=== PATIENT | female | born 1985 | race Caucasian/White ===

== ENCOUNTER 2016-05-02 00:15 | Inpatient (IN) | payer MEDICAID, OTHER ==
[~2016-05-02] VITALS: Ht 170.2 cm; Wt 119.5 kg
[~2016-05-02 00:15] MED LIST: FLUC100T39 PO; FOLI-49 PO; FURO40TA PO; HYDR-906 PO; LACT20SO12 PO; MULTI PO; OXYC5CAP17 PO; PANT40TA3 PO; SPIR100T31 PO
[2016-05-02] MEDS ORDERED: ONDANSETRON 4 MG INJ IV STA (00:35)
[2016-05-02] MEDS ORDERED: morphine 4 MG/ML VIAL IV STA ×2 (00:35→04:17)
[2016-05-02] MEDS ORDERED: SOD CHLORIDE 0.9% 1,000 ML IV ONE (01:00)
--- NOTE | 2016-05-02 01:34 | RADRPT ---
PROCEDURE: XR Chest. CLINICAL INDICATION: Possible sepsis. TECHNIQUE: Single frontal view of the chest was obtained COMPARISON: 04/14/2016. FINDINGS: Moderate right pleural effusion. Left lung is clear. The heart is not enlarged. There is no pleural effusion or pneumothorax. IMPRESSION: Moderate right pleural effusion is new over interval. RPTAT: [facility] Physician Amalia Date Time Electronically viewed and signed by Kyle Nguyen Physician on 05/02/2016 01:34 RS/
[2016-05-02 01:58] LABS: BASOPHILS % 0.1 % (0.0-2.0); EOSINOPHILS % 0.1 % (0.0-7.0); HEMATOCRIT 32.9 % (37.0-47.0); HEMOGLOBIN 11.2 g/dl (12.0-16.0); LYMPHOCYTES # 0.7 10^3/ul (0.8-2.9); LYMPHOCYTES % 2.8 % (15.0-51.0); MEAN CORPUSCULAR HEMOGLOBIN 29.4 pg (29.0-33.0); MEAN CORPUSCULAR VOLUME 86.4 fl (82.0-101.0); MEAN PLATELET VOLUME 8.1 fl (7.4-10.4); MONOCYTE # 0.6 10^3/ul (0.3-0.9); MONOCYTES % 2.3 % (0.0-11.0); NEUTROPHIL # 25.3 10^3/ul (1.6-7.5); NEUTROPHILS % 94.7 % (39.0-77.0); PLATELET COUNT 227 10^3/UL (140-440); RED CELL DISTRIBUTION WIDTH 23.6 % (11.5-14.5); UNCORRECTED WBC 26.8 10^3/ul (4.8-10.8)
[2016-05-02 02:07] LABS: INR 2.45; PROTIME 26.9 Sec (12.2-14.2); PT RATIO 2.1
[2016-05-02 02:08] LABS: ALBUMIN 2.7 g/dl (3.3-4.9); PARTIAL THROMBOPLASTIN TIME 46.7 Sec (25.0-35.0)
[2016-05-02 02:09] LABS: CHLORIDE 91 mmol/L (97-110); CONDITION 1; LH ANALYZER COMMENTS 1; SODIUM 134 mmol/L (135-144); SUSPECT 1
[2016-05-02 02:11] LABS: ALBUMIN/GLOBULIN RATIO 0.51; ALKALINE PHOSPHATASE 258 IU/L (42-121); ANION GAP 20 (8-16); ASPARTATE AMINO TRANSFERASE 172 IU/L (15-46); BILIRUBIN,INDIRECT 2.3 mg/dl (0-1.1); CARBON DIOXIDE 26 mmol/L (21-31); CREATININE 1.21 mg/dl (0.44-1.00); TOTAL PROTEIN 7.9 g/dl (6.1-8.1)
[2016-05-02 02:12] LABS: ALANINE AMINOTRANSFERASE 34 IU/L (13-69); BLOOD UREA NITROGEN 13 mg/dl (7-20); CALCIUM 8.4 mg/dl (8.4-10.2); GLUCOSE 127 mg/dl (70-220)
[2016-05-02] MEDS ORDERED: VANCOMYCIN 1 GM (PMX) 250 ML IVPB STA (02:17)
[2016-05-02] MEDS ORDERED: PIPER-TAZO 3.375 GM IV (PMX) 100 ML IVPB STA (02:17)
[2016-05-02 02:40] LABS: POTASSIUM 2.9 mmol/L (3.5-5.1)
[2016-05-02 02:41] LABS: TROPONIN-I < 0.010 ng/ml (0.00-0.12)
[2016-05-02 02:43] LABS: ADD UMIC YES; URINE BILIRUBIN (Dip) 3+ (NEGATIVE); URINE BLOOD (Dip) 1+ (NEGATIVE); URINE COLOR AMBER (YELLOW); URINE KETONES (Dip) TRACE (NEGATIVE); URINE LEUKOCYTE ESTERASE (Dip) NEGATIVE (NEGATIVE); URINE NITRITE (Dip) POSITIVE (NEGATIVE); URINE TOTAL PROTEIN (Dip) 2+ (NEGATIVE); URINE UROBILINOGEN (Dip) 2.0 E.U./dL (0.1-1.0)
--- NOTE | 2016-05-02 03:04 | ERA ---
ER Documentation Chief Complaint Date/Time DATE: 05/02/16 TIME: 03:02 Chief Complaint ab pain/distention w/worsening jaundice x 2 days HPI This is a 30-year-old female with history of liver failure and cirrhosis comes with abdominal distention worsening jaundice for the past 2 days. Patient complains of alternating fevers and chills. Pain is mild to moderate in intensity, diffuse in location with no exacerbating or alleviating factors. ROS All systems reviewed and are negative except as per history of present illness. Medications Home Meds Active Scripts Oxycodone Hcl* (IR) (Oxycodone Hcl*) 5 Mg Capsule, 5 MG PO Q4H Y for PAIN, #20 CAP Prov:KATIANAYVANESTHER DO 04/14/16 Spironolactone* (Spironolactone*) 100 Mg Tablet, 100 MG PO DAILY for 30 Days, TAB Prov:REGIDOBOBBI Wright 04/12/16 Furosemide* (Lasix*) 40 Mg Tablet, 40 MG PO DAILY for 30 Days, TAB Prov:REGIDORBOBBI 04/12/16 Hydrocodone/Acetaminophen (Bailey 5-325 Tablet) 1 Each Tablet, 1 EACH PO Q6H, # 30 TAB Prov:REGIDORBOBBI 04/12/16 Folic Acid* (Folic Acid*) 1 Mg Tablet, 1 MG PO DAILY for 30 Days, TAB Prov:REGIDOBOBBI Wright 04/12/16 Multivitamins* (Theragran*) 1 Tab Tab, 1 TAB PO DAILY for 30 Days, TAB Prov:REGIDORBOBBI 04/12/16 Lactulose* (Cephulac*) 20 Gm/30 Ml Soln, 20 GM PO Q6, #120 Prov:REGIDORBOBBI 04/12/16 Pantoprazole* (Protonix*) 40 Mg Tablet.dr, 40 MG PO BID, #60 TAB Prov:REGIDORBOBBI 04/12/16 Fluconazole* (Fluconazole*) 100 Mg Tablet, 100 MG PO DAILY for 7 Days, TAB Prov:REGIDORBOBBI 04/12/16 Allergies Allergies: Coded Allergies: No Known Allergy (Unverified , 04/14/16) PMhx/Soc History of Surgery: Yes (Gall bladder removed, Appendectomy, cyst removed) Anesthesia Reaction: No Hx Neurological Disorder: No Hx Respiratory Disorders: No Hx Cardiac Disorders: No Hx Psychiatric Problems: No Hx Miscellaneous Medical Probl: No Hx Alcohol Use: Yes (quit ) Hx Substance Use: Yes Hx Tobacco Use: No Smoking Status: Never smoker Physical Exam Vitals Vital Signs Date Time Temp Pulse Resp B/P Pulse Ox O2 Delivery O2 Flow Rate FiO2 05/02/16 01:25 98.2 102 17 132/72 97 Room Air 05/02/16 00:15 98.6 105 22 98/57 98 Physical Exam Const: [] Head: Atraumatic Eyes: Normal Conjunctiva ENT: Normal External Ears, Nose and Mouth. Neck: Full range of motion..~ No meningismus. Resp: Clear to auscultation bilaterally Cardio: Regular rate and rhythm, no murmurs Abd: Soft, non tender, non distended. Normal bowel sounds Skin: No petechiae or rashes Back: No midline or flank tenderness Ext: No cyanosis, or edema Neur: Awake and alert Psych: Normal Mood and Affect Result Diagram: 05/02/160 05/02/16 0130 Results 24 hrs Laboratory Tests Test 05/02/16 01:30 Activated Partial Thromboplast Time 46.7Sec Alanine Aminotransferase (ALT/SGPT) 34IU/L Albumin 2.7g/dl Albumin/Globulin Ratio 0.51 Alkaline Phosphatase 258IU/L Anion Gap 20 Aspartate Amino Transf (AST/SGOT) 172IU/L Basophils # Pending Basophils % Pending Blood Morphology Comment Blood Urea Nitrogen 13mg/dl Calcium Level 8.4mg/dl Carbon Dioxide Level 26mmol/L Chloride Level 91mmol/L Creatinine 1.21mg/dl Direct Bilirubin 13.70mg/dl Eosinophils # Pending Eosinophils % Pending Globulin 5.20g/dl Glucose Level 127mg/dl Hematocrit 32.9% Hemoglobin 11.2g/dl INR International Normalized Ratio 2.45 Indirect Bilirubin 2.3mg/dl Lactic Acid Level 2.8mmol/L Lymphocytes # Pending Lymphocytes % Pending Mean Corpuscular Hemoglobin 29.4pg Mean Corpuscular Hemoglobin Concent 34.0g/dl Mean Corpuscular Volume 86.4fl Mean Platelet Volume 8.1fl Monocytes # Pending Monocytes % Pending Neutrophils # Pending Neutrophils % Pending Nucleated Red Blood Cells # Pending Nucleated Red Blood Cells % Pending Platelet Count 61294^3/UL Potassium Level 2.9mmol/L Prothrombin Time 26.9Sec Prothrombin Time Ratio 2.1 Red Blood Count 3.8010^6/ul Red Cell Distribution Width 23.6% Sodium Level 134mmol/L Total Bilirubin 16.0mg/dl Total Protein 7.9g/dl Troponin I < 0.010ng/ml White Blood Count 26.810^3/ul Current Medications Medications (Trade) Dose Ordered Sig/Latoya Route PRN Reason Start Time Stop Time Status Last Admin Dose Admin Sodium Chloride (NS) 1,000 ml @ 1,000 mls/hr Q1H ONCE IV 05/02/16 01:00 05/02/16 01:59 DC 05/02/16 01:38 Morphine Sulfate (morphine) 4 mg ONCE STAT IV 05/02/16 00:35 05/02/16 00:36 DC 05/02/16 01:38 Ondansetron HCl 4 mg 4 mg ONCE STAT IV 05/02/16 00:35 05/02/16 00:36 DC 05/02/16 01:38 Vancomycin HCl 250 ml @ 125 mls/hr ONCE STAT IVPB 05/02/16 02:17 05/02/16 04:16 Piperacillin Sod/ Tazobactam Sod (Zosyn 3.375gm/ 100 ml (Pmx)) 100 ml @ 200 mls/hr ONCE STAT IVPB 05/02/16 02:17 05/02/16 02:46 DC 05/02/16 02:59 Procedures/MDM Patient's infectious symptoms have not stabilized and the patient is at risk of rapid decompensation. The patient will be admitted for careful hydration, antibiotic therapy, and infectious source control. Severe Sepsis Assessment: Infectious Source: Possibly spontaneous bacterial peritonitis End organ damage indicated by: [Lactate > 2.0 mmol/L Hypotension( SBP < 90 or >40 mmHG drop or MAP < 65) Severe Sepsis Managment: Blood Cultures X 2 before broad spectrum antibiotics initiated within 3 hours of recognition. 30 ml/kg NS bolus Completed Initial Lactate: [normal] Repeat Lactate pending Critical Care: Time: 45 minutes Treatments/Evaluations: Emergent fluid management, while maintaining close respiratory support. Immediate broad spectrum antibiotic therapy. Simultaneous assessment for possible sources in order to direct therapy. Consideration for invasive and chemical support to prevent respiratory or cardiac collapse. Septic Shock Assessment (1 hour post 30 ml/kg fluid bolus): Hypotension (SBP < 90 or 40 mmHg drop, MAP < 65): [No] Lactic acid > 4.0 [No] Perfusion Reassessment for Septic Shock: Temp 98 point, Pulse 98, RR 18, BP 117/80 Heart Exam: [Tachycardic] Lung Exam: [No Crackles] Capillary Refill: [Delayed] Peripheral Pulses: [Radially present] Skin: [Mottled, pale] Accepting Care Team: Current data and ongoing care discussed. Time: 2:30 AM Primary Provider: Jeff Consulting: [XOXOXO] Outstanding Data: none Chest X-ray 1V Interpreted by me: Soft Tissue: No acute abnormalities Bones: No acute abnormalities Mediastinum/Cardiac Silhouette/Lungs: Left pleural effusion Departure Diagnosis: Primary Impression: Sepsis Qualified Code: A41.9 - Sepsis, due to unspecified organism Additional Impressions: Hypokalemia Jaundice Condition: Critical RAJESH LAWRENCE May 02, 2016 03:04
[2016-05-02 03:16] LABS: ICTOTEST POSITIVE (NEGATIVE)
[2016-05-02 03:17] LABS: BACTERIA,URINE MODERATE; SQUAMOUS EPITHELIAL CELL,UR MANY
[2016-05-02] MEDS ORDERED: POTASSIUM CHLORIDE 250 ML IVPB ONE (06:00)
[2016-05-02] MEDS ORDERED: NACL 0.9% 3 ML SYG IV SCH (07:30)
[2016-05-02] MEDS ORDERED: ONDANSETRON 4 MG INJ IV PRN (07:30)
[2016-05-02] MEDS: CEFTRIAXONE 1 GM/50 ML (PMX) 50 ML IVPB SCH (08:05)
[2016-05-02] MEDS: SOD CHLORIDE 0.45% 1,000 ML IV SCH (08:06)
--- NOTE | 2016-05-02 08:10 | RADRPT ---
PROCEDURE: US Abdomen limited CLINICAL INDICATION: Distension TECHNIQUE: Multiple real-time longitudinal and transverse images were acquired of the patient's ab domen utilizing a curved array transducer. COMPARISON: 04/14/2016 FINDINGS: A small amount of simple appearing ascites is seen in the right upper quadrant and left upper quadra nt. The liver demonstrates coarsened hepatic echotexture and suggestion of nodular surface contour. IMPRESSION: 1. Small ascites as above. 2. Suggestion of chronic hepatic parenchymal disease. RPTAT: JJ .Alfonzo Armstrong MD, MD Date Time Electronically viewed and signed by .Alfonzo Armstrong MD, on 05/02/2016 08:09 .A/
[2016-05-02] MEDS: MULTIVITAMINS THERAPEUTIC TAB PO SCH (08:55)
[2016-05-02] MEDS: FLUCONAZOLE 100 MG TAB PO SCH (08:55)
[2016-05-02] MEDS: FOLIC ACID 1 MG TAB PO SCH (08:55)
[2016-05-02] MEDS: PANTOPRAZOLE (EC) 40 MG TAB PO SCH ×2 (08:55→18:10)
[2016-05-02] MEDS: SPIRONOLACTONE 50 MG TAB PO SCH (08:55)
[2016-05-02] MEDS: FUROSEMIDE 40 MG TAB PO SCH (08:59)
--- NOTE | 2016-05-02 10:07 | HP ---
DATE OF ADMISSION: 05/02/2016 TIME: 7 a.m. CHIEF COMPLAINT: Abdominal pain. HISTORY OF PRESENT ILLNESS: The patient is a 30-year-old female with a history of alcohol abuse wit h cirrhosis. The patient is on liver transplant list. The patient states that her last drink was 2 weeks ago, she took a shot. Since then she has been having abdominal pain. She states that she aaron s never had a paracentesis before, and she has never been diagnosed with actual ascites, but the abd omen does get distended. The patient states that her pain has been progressively getting worse over the past 2 weeks and has become difficult to bear. She has no other complaints at this time. Of n ote, she does state that her abdomen has been more distended over the past several weeks as well. PAST MEDICAL HISTORY: Alcohol-related cirrhosis. The patient is on the liver transplant list. Her last drink was 2 weeks ago when she took a shot of alcohol. PAST SURGICAL HISTORY: Appendectomy, cholecystectomy. HOME MEDICATIONS: 1. Oxycodone 2. Aldactone. 3. Furosemide. 4. Hydrocodone. 5. Folic acid. 6. Multivitamin. 7. Lactulose. 8. Protonix. 9. Fluconazole. ALLERGIES: NO KNOWN DRUG ALLERGIES. FAMILY HISTORY: Denies. SOCIAL HISTORY: Denies any tobacco or drug abuse. She has a history of alcohol abuse and is trying to stop drinking. Once again, her last drink was 2 weeks ago. REVIEW OF SYSTEMS: A 12-point review of systems is negative except for that discussed in HPI. PHYSICAL EXAMINATION: VITAL SIGNS: Temperature is 98.2, pulse is 90, respiratory rate is 20, blood pressure is 106/63, sa turation 93% on room air. GENERAL: No acute distress, alert, and oriented. HEENT: Normocephalic, atraumatic. LUNGS: Clear to auscultation. CARDIOVASCULAR: Regular rate and rhythm. ABDOMEN: Distended, tender to palpation, soft. EXTREMITIES: No clubbing, cyanosis, or edema. LABORATORIES: White count 26.8, hemoglobin is 11.2, platelets are 20 to 27. Chemistry: Sodium is 134, potassium is 2.9, chloride is 91, anion gap is 20, creatinine is 1.21. Lactic acid is 2.8. To jen bilirubin is 16.0. AST is 172, alkaline phosphatase is 68, ALT is 34. INR is 2.45. UA shows 0 to 2 WBCs, positive nitrites, trace ketones. DIAGNOSTICS: Chest x-ray shows moderate right pleural effusion, new over interval. ASSESSMENT AND PLAN: 1. Abdominal pain, evaluate for spontaneous bacterial peritonitis. Of note, the patient has yet to have any paracentesis because she has never actually been noted to have any significant ascites. S he has had abdominal distention in the past she states, but was told that she had no actual fluid in her abdomen. At this time will first order abdominal ultrasound to see if there is any ascites. I f then, primary team can order a paracentesis and for both therapeutic and diagnostic purposes and e valuate for SBP. At this point will empirically treat with Rocephin for possible SBP. Will give mo rphine p.r.n. for pain. 2. Leukocytosis, possibly secondary to spontaneous bacterial peritonitis. UA shows no signs of inf ection. Chest x-ray shows no pneumonia. 3. Left side pleural effusion. The patient has no shortness of breath, but she does have moderate right pleural effusion. This could be possibly secondary to a hepatic hydrothorax, and if abdominal ultrasound did show ascites, this would further strengthen this etiology for this effusion. Of not e, even if the ultrasound is negative for any abdominal ascites, this right pleural effusion and may very well likely still be secondary to underlying cirrhosis and could likely still be a hepatic hyd rothorax 4. Alcohol abuse with a history of cirrhosis. The patient does have a rising total bilirubin. Her INR is also elevated. Creatinine is also slightly elevated. A CHADS score is likely to be somewha t high, but of note, she already is on a liver transplant list, and she understands that she needs t o not drink for 6 months to be even eligible for a transplant. We will continue her home lactulose as well as furosemide, Aldactone, and Protonix. 5. Prophylaxis. SCDs. Dictated By: TITUS CUMMINS/BE Conf#: [id number] DID#: [id number]
[2016-05-02 11:00] VITALS: BP 116/56; PULSE 90; RESP 18; Ht 170.2 cm; Wt 119.5 kg
[2016-05-02 11:02] VITALS: TEMP 98.1
[2016-05-02] MEDS: oxyCODONE 5 MG TAB PO PRN ×2 (12:09→21:22)
[2016-05-02] MEDS: LACTULOSE 30ML CUP PO SCH ×2 (12:14→18:10)
--- NOTE | 2016-05-02 16:24 | CONS ---
Date/Time of Note Date/Time of Note DATE: 05/02/16 TIME: 16:17 Consult Date/Type/Reason Admit Date/Time May 02, 2016 at 02:18 Initial Consult Date Type of Consultation: Internal Medicine Subjective Comfortable. Mild nausea. Objective Vital Signs Date Time Temp Pulse Resp B/P Pulse Ox O2 Delivery O2 Flow Rate FiO2 05/02/16 11:02 98.1 88 16 109/61 Room Air 05/02/16 11:00 97 PHYSICAL EXAMINATION: VITAL SIGNS: .Chronically ill appearing lady. Significant jaundice. GENERAL: No acute distress, alert, and oriented. HEENT: Normocephalic, atraumatic. LUNGS: Clear to auscultation. CARDIOVASCULAR: Regular rate and rhythm. ABDOMEN: Distended, tender to palpation, soft. EXTREMITIES: No clubbing, cyanosis, or edema. Results/Medications Result Diagram: 05/02/16 0130 05/02/16 0130 Results 24 hrs Laboratory Tests Test 05/02/16 01:30 05/02/16 02:26 Activated Partial Thromboplast Time 46.7 H Alanine Aminotransferase (ALT/SGPT) 34 Albumin 2.7 L Albumin/Globulin Ratio 0.51 Alkaline Phosphatase 258 H Anion Gap 20 H Aspartate Amino Transf (AST/SGOT) 172 H Basophils # 0.0 Basophils % 0.1 Blood Morphology Comment Blood Urea Nitrogen 13 Calcium Level 8.4 Carbon Dioxide Level 26 Chloride Level 91 L Creatinine 1.21 H Direct Bilirubin 13.70 H Eosinophils # 0.0 Eosinophils % 0.1 Globulin 5.20 H Glucose Level 127 Hematocrit 32.9 L Hemoglobin 11.2 L INR International Normalized Ratio 2.45 Indirect Bilirubin 2.3 H Lactic Acid Level 2.8 H Lymphocytes # 0.7 L Lymphocytes % 2.8 L Mean Corpuscular Hemoglobin 29.4 Mean Corpuscular Hemoglobin Concent 34.0 Mean Corpuscular Volume 86.4 Mean Platelet Volume 8.1 Monocytes # 0.6 Monocytes % 2.3 Neutrophils # 25.3 H Neutrophils % 94.7 H Nucleated Red Blood Cells # 0.0 Nucleated Red Blood Cells % 0.0 Platelet Count 227 Potassium Level 2.9 *L Prothrombin Time 26.9 H Prothrombin Time Ratio 2.1 Red Blood Count 3.80 L Red Cell Distribution Width 23.6 H Sodium Level 134 L Total Bilirubin 16.0 *H Total Protein 7.9 Troponin I < 0.010 White Blood Count 26.8 #H Urine Bacteria MODERATE Urine Bilirubin 3+ H Urine Clarity CLEAR Urine Color NEVA Urine Glucose 0.1% H Urine Hemoglobin 1+ H Urine Ictotest POSITIVE Urine Ketones TRACE H Urine Leukocyte Esterase NEGATIVE Urine Microscopic RBC 10-25 Urine Microscopic WBC 0-2 Urine Nitrite POSITIVE H Urine Specific [place] 1.010 Urine Squamous Epithelial Cells MANY Urine Total Protein 2+ H Urine Urobilinogen 2.0 E.U./dL H Urine pH 6.5 Medications Current Medications Sodium Chloride (1/2 NS) 1,000 ml @ 30 mls/hr Q24H IV Last administered on 05/02 08:06; Admin Dose 30 MLS/HR; Start 05/02/16 at 08:00 Ondansetron HCl 4 mg 4 mg Q6H PRN IV NAUSEA AND/OR VOMITING Last administered on 05/02/16 12:14; Admin Dose 4 MG; Start 05/02/16 at 07:30 Ceftriaxone Sodium (Rocephin) 50 ml @ 100 mls/hr Q24H IVPB Last administered on 05/02/16 08:05; Admin Dose 100 MLS/HR; Start 05/02/16 at 07:30 Fluconazole (Diflucan) 100 mg DAILY PO Last administered on 05/02/16 08:55; Admin Dose 100 MG; Start 05/02/16 at 09:00 Folic Acid (Folic Acid) 1 mg DAILY PO Last administered on 05/02/16 08:55; Admin Dose 1 MG; Start 05/02/16 at 09:00 Furosemide (Lasix) 40 mg DAILY PO ; Start 05/02/16 at 09:00 Lactulose (Enulose) 20 gm Q6 PO Last administered on 05/02/16 12:14; Admin Dose 20 GM; Start 05/02/16 at 12:00 Multivitamins Therapeutic (Theragran) 1 tab DAILY PO Last administered on 08:55; Admin Dose 1 TAB; Start 05/02/16 at 09:00 Oxycodone HCl (Roxicodone) 5 mg Q4H PRN PO PAIN Last administered on 05/02/16 12:09; Admin Dose 5 MG; Start 05/02/16 at 08:00 Pantoprazole (Protonix Tab) 40 mg BID@06,18 PO Last administered on 05/02/16 08 :55; Admin Dose 40 MG; Start 05/02/16 at 08:00 Spironolactone (Aldactone) 100 mg DAILY PO Last administered on 05/02/16 08:55 ; Admin Dose 100 MG; Start 05/02/16 at 09:00 Assessment/Plan Chief Complaint/Hosp Course ASSESSMENT AND PLAN: 1. Abdominal pain, evaluate for spontaneous bacterial peritonitis. Ultrasound abdo shows only a little ascites. Not enough for paracentesis. Continue empiric rocephin for SBP for now. Dr Isaac cunha pending. 2. Leukocytosis, possibly secondary to spontaneous bacterial peritonitis. UA shows no signs of infection. Chest x-ray shows no pneumonia. 3. Left side pleural effusion. The patient has no shortness of breath, but she does have moderate right pleural effusion. repeat cxr in am, if still has significant effusion, will need thoracentesis although this is likely hepatic hydrothorax. 4. SCDs. Problems: AHSAN FLORES MD, [facility] May 02, 2016 16:24
[2016-05-02 19:49] VITALS: BP 101/50; RESP 16
--- NOTE | 2016-05-02 20:53 | CONS ---
Date/Time of Note Date/Time of Note DATE: 05/02/16 TIME: 20:42 Assessment/Plan Assessment/Plan Additional Assessment/Plan Assessment: Severe alcoholic hepatitis Cirrhosis of the liver/alcoholic Ascites Coagulopathy Likely portal hypertension Pleural effusion Likely related to ascites Leukocytosis Likely related to alcoholic hepatitis History of alcohol abuse/active Plan: Based on discriminant function values will initiate prednisone 40 mg daily 28 days Continue diureses Eventually endoscopy is advisable to rule out varices Consultation Date/Type/Reason Admit Date/Time May 02, 2016 at 02:18 Type of Consultation: Gastroenterology/hepatology Hx of Present Illness 30-year-old female with history of heavy ethanol abuse, hospitalized with increasing abdominal pain and also increasing abdominal girth. The patient states that she has been evaluated previously for liver transplant in [facility], she recently relocated to [place] and is supposed to have an appointment at [facility]. She however has not been seen by [facility] liver transplant program. The patient has been hospitalized with anasarca, severe jaundice, prolonged PT. She claims abstinence for 4 months until 2 weeks prior when she had in her description "one shot of vodka" the reliability of this information is highly questionable. The patient currently is alert and oriented 3, she is hungry. Her clinical picture is highly suggestive alcoholic hepatitis and she has had discriminant function calculated at 81.8 which puts her at a very high risk with increased mortality in the short-term and a good candidate for steroid therapy. Her calculated meld score is 30. Given the fact the patient is been drinking as recently as 2 weeks and she has not attended any programs she is unlikely to be a candidate for transplantation at this time. Skin: no complaints Past Medical History Alcoholic liver disease Alcoholism Medical History: other Past Surgical History Cholecystectomy Appendectomy Social History Alcohol Use: other (Unclear but likely active) Smoking Status: Never smoker Drug Use: none Exam/Review of Systems Vital Signs Vitals Vital Signs Date Time Temp Pulse Resp B/P Pulse Ox O2 Delivery O2 Flow Rate FiO2 05/02/16 19:49 98.6 88 16 101/50 93 05/02/16 11:02 Room Air Exam Constitutional: alert, obese, oriented, other (Significant ascites), well developed, No distress Head: atraumatic, normocephalic Eyes: icteric, other Neck: non-tender, supple Respiratory: crackles/rales (Both bases), diminished breath sounds (Both bases) Cardiovascular: nl pulses, regular rate and rhythm Gastrointestinal: ascites, bowel sounds, distended, soft, tender (Mildly diffuse), No hepatomegaly, No mass, No rebound or guarding, No splenomegaly Genitourinary - Female: nl external genitalia Extremities: edema (3+ pitting edema lower extremities) Neurological: BRIM STIFFENER II-XII intact, nl mental status, nl speech, nl strength Results Result Diagram: 05/02/16 0130 05/02/16 0130 Results 24 hrs Laboratory Tests Test 05/02/16 01:30 05/02/16 02:26 Activated Partial Thromboplast Time 46.7 H Alanine Aminotransferase (ALT/SGPT) 34 Albumin 2.7 L Albumin/Globulin Ratio 0.51 Alkaline Phosphatase 258 H Anion Gap 20 H Aspartate Amino Transf (AST/SGOT) 172 H Basophils # 0.0 Basophils % 0.1 Blood Morphology Comment Blood Urea Nitrogen 13 Calcium Level 8.4 Carbon Dioxide Level 26 Chloride Level 91 L Creatinine 1.21 H Direct Bilirubin 13.70 H Eosinophils # 0.0 Eosinophils % 0.1 Globulin 5.20 H Glucose Level 127 Hematocrit 32.9 L Hemoglobin 11.2 L INR International Normalized Ratio 2.45 Indirect Bilirubin 2.3 H Lactic Acid Level 2.8 H Lymphocytes # 0.7 L Lymphocytes % 2.8 L Mean Corpuscular Hemoglobin 29.4 Mean Corpuscular Hemoglobin Concent 34.0 Mean Corpuscular Volume 86.4 Mean Platelet Volume 8.1 Monocytes # 0.6 Monocytes % 2.3 Neutrophils # 25.3 H Neutrophils % 94.7 H Nucleated Red Blood Cells # 0.0 Nucleated Red Blood Cells % 0.0 Platelet Count 227 Potassium Level 2.9 *L Prothrombin Time 26.9 H Prothrombin Time Ratio 2.1 Red Blood Count 3.80 L Red Cell Distribution Width 23.6 H Sodium Level 134 L Total Bilirubin 16.0 *H Total Protein 7.9 Troponin I < 0.010 White Blood Count 26.8 #H Urine Bacteria MODERATE Urine Bilirubin 3+ H Urine Clarity CLEAR Urine Color NEVA Urine Glucose 0.1% H Urine Hemoglobin 1+ H Urine Ictotest POSITIVE Urine Ketones TRACE H Urine Leukocyte Esterase NEGATIVE Urine Microscopic RBC 10-25 Urine Microscopic WBC 0-2 Urine Nitrite POSITIVE H Urine Specific [place] 1.010 Urine Squamous Epithelial Cells MANY Urine Total Protein 2+ H Urine Urobilinogen 2.0 E.U./dL H Urine pH 6.5 Medications Medications Current Medications Sodium Chloride (1/2 NS) 1,000 ml @ 30 mls/hr Q24H IV Last administered on 05/02 08:06; Admin Dose 30 MLS/HR; Start 05/02/16 at 08:00 Ondansetron HCl 4 mg 4 mg Q6H PRN IV NAUSEA AND/OR VOMITING Last administered on 05/02/16 12:14; Admin Dose 4 MG; Start 05/02/16 at 07:30 Ceftriaxone Sodium (Rocephin) 50 ml @ 100 mls/hr Q24H IVPB Last administered on 05/02/16 08:05; Admin Dose 100 MLS/HR; Start 05/02/16 at 07:30 Fluconazole (Diflucan) 100 mg DAILY PO Last administered on 05/02/16 08:55; Admin Dose 100 MG; Start 05/02/16 at 09:00 Folic Acid (Folic Acid) 1 mg DAILY PO Last administered on 05/02/16 08:55; Admin Dose 1 MG; Start 05/02/16 at 09:00 Furosemide (Lasix) 40 mg DAILY PO ; Start 05/02/16 at 09:00 Lactulose (Enulose) 20 gm Q6 PO Last administered on 05/02/16 18:10; Admin Dose 20 GM; Start 05/02/16 at 12:00 Multivitamins Therapeutic (Theragran) 1 tab DAILY PO Last administered on 08:55; Admin Dose 1 TAB; Start 05/02/16 at 09:00 Oxycodone HCl (Roxicodone) 5 mg Q4H PRN PO PAIN Last administered on 05/02/16 12:09; Admin Dose 5 MG; Start 05/02/16 at 08:00 Pantoprazole (Protonix Tab) 40 mg BID@06,18 PO Last administered on 05/02/16 18 :10; Admin Dose 40 MG; Start 05/02/16 at 08:00 Spironolactone (Aldactone) 100 mg DAILY PO Last administered on 05/02/16 08:55 ; Admin Dose 100 MG; Start 05/02/16 at 09:00 ZOFIA AGEE MD May 02, 2016 20:52
[2016-05-02] MEDS ORDERED: predniSONE 20 MG TAB PO ONE (21:00)
[2016-05-03] MEDS: LACTULOSE 30ML CUP PO SCH ×5 (00:22→23:23)
[2016-05-03 05:12] LABS: HEMATOCRIT 27.3 % (37.0-47.0); HEMOGLOBIN 9.4 g/dl (12.0-16.0); MEAN CORPUSCULAR HEMOGLOBIN 29.9 pg (29.0-33.0); MEAN CORPUSCULAR HGB CONC 34.2 g/dl (32.0-37.0); MEAN CORPUSCULAR VOLUME 87.3 fl (82.0-101.0); MEAN PLATELET VOLUME 7.7 fl (7.4-10.4); PLATELET COUNT 170 10^3/UL (140-440); RED BLOOD COUNT 3.13 10^6/ul (4.20-5.40); RED CELL DISTRIBUTION WIDTH 24.9 % (11.5-14.5); UNCORRECTED WBC 26.5 10^3/ul (4.8-10.8); WHITE BLOOD COUNT 26.5 10^3/ul (4.8-10.8)
[2016-05-03 05:26] LABS: ALBUMIN 2.3 g/dl (3.3-4.9)
[2016-05-03 05:27] LABS: POTASSIUM 3.2 mmol/L (3.5-5.1)
[2016-05-03 05:28] LABS: CREATININE 1.28 mg/dl (0.44-1.00)
[2016-05-03 05:29] LABS: ALBUMIN/GLOBULIN RATIO 0.46; BILIRUBIN,DIRECT 12.3 mg/dl (0.00-0.20); BILIRUBIN,TOTAL 14.3 mg/dl (0.2-1.3); CALCIUM 8.1 mg/dl (8.4-10.2); MAGNESIUM 2.4 mg/dl (1.7-2.5); PHOSPHORUS 4.2 mg/dl (2.5-4.9); TOTAL PROTEIN 7.2 g/dl (6.1-8.1)
[2016-05-03 05:33] LABS: CONDITION 1; LH ANALYZER COMMENTS 1; SUSPECT 1
[2016-05-03] MEDS: PANTOPRAZOLE (EC) 40 MG TAB PO SCH ×2 (05:50→17:24)
[2016-05-03 07:28] LABS: WHITE BLOOD COUNT 26.8 10^3/ul (4.8-10.8)
[2016-05-03] MEDS: SOD CHLORIDE 0.45% 1,000 ML IV SCH ×2 (08:00→18:12)
[2016-05-03] MEDS: oxyCODONE 5 MG TAB PO PRN ×2 (08:21→17:23)
[2016-05-03] MEDS: CEFTRIAXONE 1 GM/50 ML (PMX) 50 ML IVPB SCH (08:21)
[2016-05-03] MEDS: FOLIC ACID 1 MG TAB PO SCH (08:22)
[2016-05-03] MEDS: MULTIVITAMINS THERAPEUTIC TAB PO SCH (08:22)
[2016-05-03] MEDS: FLUCONAZOLE 100 MG TAB PO SCH (08:22)
[2016-05-03] MEDS: SPIRONOLACTONE 50 MG TAB PO SCH (08:26)
[2016-05-03] MEDS: FUROSEMIDE 40 MG TAB PO SCH (08:26)
[2016-05-03 08:27] VITALS: BP 121/60; PULSE 92; RESP 16
[2016-05-03 10:51] LABS: NEUTROPHIL # 22.3 10^3/ul (1.6-7.5)
[2016-05-03 10:52] LABS: LYMPHOCYTES # 1.1 10^3/ul (0.8-2.9); MONOCYTE # 1.1 10^3/ul (0.3-0.9); MYELOCYTES # 0.3
--- NOTE | 2016-05-03 11:10 | RADRPT ---
PROCEDURE: XR Chest. CLINICAL INDICATION: Shortness of breath. TECHNIQUE: Single frontal view. COMPARISON: 05/02/2016. FINDINGS: There is a moderate right pleural effusion, unchanged. There is associated atelectasis or pneumonia throughout the right mid and lower lung zones, also unchanged. There is mild left basilar atelecta sis. The left lung is otherwise clear. There is no left pleural effusion. The heart size is normal. There is no pneumothorax. IMPRESSION: 1. No change from 05/02/2016. RPTAT: QQ .Randy Joel MD, MD Date Time Electronically viewed and signed by .Randy Joel MD, MD on 05/03/2016 11:10 .R/
[2016-05-03] MEDS ORDERED: POTASSIUM CHLORIDE (SR) 20 MEQ TAB PO STA ×2 (14:23→15:46)
--- NOTE | 2016-05-03 15:58 | PN ---
Date/Time of Note Date/Time of Note DATE: 05/03/16 TIME: 15:56 Assessment/Plan VTE Prophylaxis VTE Prophylaxis Intervention: SCD's Assessment/Plan Assessment/Plan 1. Abdominal pain, evaluate for spontaneous bacterial peritonitis. Of note, the patient has yet to have any paracentesis because she has never actually been noted to have any significant ascites. She has had abdominal distention in the past she states, but was told that she had no actual fluid in her abdomen. At this time will first order abdominal ultrasound to see if there is any ascites. If then, primary team can order a paracentesis and for both therapeutic and diagnostic purposes and evaluate for SBP. At this point will empirically treat with Rocephin for possible SBP. Will give morphine p.r.n. for pain. 2. Leukocytosis, possibly secondary to spontaneous bacterial peritonitis. UA shows no signs of infection. Chest x-ray shows no pneumonia. 3. Left side pleural effusion. The patient has no shortness of breath, but she does have moderate right pleural effusion. This could be possibly secondary to a hepatic hydrothorax, and if abdominal ultrasound did show ascites , this would further strengthen this etiology for this effusion. Of note, even if the ultrasound is negative for any abdominal ascites, this right pleural effusion and may very well likely still be secondary to underlying cirrhosis and could likely still be a hepatic hydrothorax 4. Alcohol abuse with a history of cirrhosis. The patient does have a rising total bilirubin. Her INR is also elevated. Creatinine is also slightly elevated. A CHADS score is likely to be somewhat high, but of note, she already is on a liver transplant list, and she understands that she needs to not drink for 6 months to be even eligible for a transplant. We will continue her home lactulose as well as furosemide, Aldactone, and Protonix. 5. Prophylaxis. SCDs. Subjective 24 Hr Interval Summary Free Text/Dictation afebrile still has abdominal pain no nausea or vomiting Exam/Review of Systems Vital Signs Vitals Vital Signs Date Time Temp Pulse Resp B/P Pulse Ox O2 Delivery O2 Flow Rate FiO2 05/03/16 08:27 99.0 92 16 121/60 92 Room Air Intake and Output 05/02/16 05/02/16 05/03/16 15:00 23:00 07:00 Intake Total 150 ml 710 ml Output Total 150 ml 700 ml Balance 0 ml 10 ml Exam Constitutional: alert, oriented, well developed Psych: nl mood/affect, no complaints Head: atraumatic, normocephalic Eyes: EOMI, PERRL, nl conjunctiva, nl lids, nl sclera ENMT: mucosa pink and moist, nl external ears & nose, nl lips & teeth, nl nasal mucosa & septum Neck: non-tender, supple Respiratory: clear to auscultation, normal air movement Cardiovascular: regular rate and rhythm Gastrointestinal: distended, hepatomegaly, other (diffuse tenderness with rebound), soft Extremities: normal pulses, No calf tenderness, No clubbing, No cyanosis, No edema, No palpable cord, No pitting pedal edema, No tenderness Neurological: SENIOR FOREMAN II-XII intact, nl mental status, nl speech, nl strength Skin: nl turgor, rash or lesions Results Result Diagram: 05/03/165 05/03/165 Results 24 hrs Laboratory Tests Test 05/03/16 04:35 Alanine Aminotransferase (ALT/SGPT) 32 Albumin 2.3 L Albumin/Globulin Ratio 0.46 Alkaline Phosphatase 217 H Anion Gap 16 Aspartate Amino Transf (AST/SGOT) 128 H Band Neutrophils % 4.0 Basophils # Basophils % Blood Morphology Comment Blood Urea Nitrogen 13 Calcium Level 8.1 L Carbon Dioxide Level 25 Chloride Level 96 L Creatinine 1.28 H Differential Comment MANUAL DIFF Direct Bilirubin 12.30 H Eosinophils # Eosinophils % Globulin 4.90 H Glucose Level 154 Hematocrit 27.3 L Hemoglobin 9.4 L Hemoglobin A1c 5.0 Indirect Bilirubin 2.0 H Lymphocytes # 1.1 Lymphocytes % 4.0 L Magnesium Level 2.4 Mean Corpuscular Hemoglobin 29.9 Mean Corpuscular Hemoglobin Concent 34.2 Mean Corpuscular Volume 87.3 Mean Platelet Volume 7.7 Metamyelocytes # 0.8 Metamyelocytes % 3.0 H Monocytes # 1.1 H Monocytes % 4.0 Myelocytes # 0.3 Myelocytes % 1.0 H Neutrophils # 22.3 H Neutrophils % 84.0 H Nucleated Red Blood Cells # Nucleated Red Blood Cells % 1.0 H Phosphorus Level 4.2 Platelet Count 170 # Potassium Level 3.2 L Red Blood Count 3.13 L Red Cell Distribution Width 24.9 H Sodium Level 134 L Total Bilirubin 14.3 H Total Protein 7.2 White Blood Count 26.5 H Medications Medications Current Medications Sodium Chloride (1/2 NS) 1,000 ml @ 30 mls/hr Q24H IV Last administered on 05/02 08:06; Admin Dose 30 MLS/HR; Start 05/02/16 at 08:00 Ondansetron HCl 4 mg 4 mg Q6H PRN IV NAUSEA AND/OR VOMITING Last administered on 05/02/16 12:14; Admin Dose 4 MG; Start 05/02/16 at 07:30 Ceftriaxone Sodium (Rocephin) 50 ml @ 100 mls/hr Q24H IVPB Last administered on 05/03/16 08:21; Admin Dose 100 MLS/HR; Start 05/02/16 at 07:30 Fluconazole (Diflucan) 100 mg DAILY PO Last administered on 05/03/16 08:22; Admin Dose 100 MG; Start 05/02/16 at 09:00 Folic Acid (Folic Acid) 1 mg DAILY PO Last administered on 05/03/16 08:22; Admin Dose 1 MG; Start 05/02/16 at 09:00 Furosemide (Lasix) 40 mg DAILY PO Last administered on 05/03/16 08:26; Admin Dose 40 MG; Start 05/02/16 at 09:00 Lactulose (Enulose) 20 gm Q6 PO Last administered on 05/03/16 12:34; Admin Dose 20 GM; Start 05/02/16 at 12:00 Multivitamins Therapeutic (Theragran) 1 tab DAILY PO Last administered on 08:22; Admin Dose 1 TAB; Start 05/02/16 at 09:00 Oxycodone HCl (Roxicodone) 5 mg Q4H PRN PO PAIN Last administered on 05/03/16 08:21; Admin Dose 5 MG; Start 05/02/16 at 08:00 Pantoprazole (Protonix Tab) 40 mg BID@06,18 PO Last administered on 05/03/16 05:50; Admin Dose 40 MG; Start 05/02/16 at 08:00 Spironolactone (Aldactone) 100 mg DAILY PO Last administered on 05/03/16 08:26 ; Admin Dose 100 MG; Start 05/02/16 at 09:00 MIRZA AKHTAR MD May 03, 2016 15:58
--- NOTE | 2016-05-03 16:38 | CONS ---
Date/Time of Note Date/Time of Note DATE: 05/03/16 TIME: 16:36 Assessment/Plan Assessment/Plan Additional Assessment/Plan Severe alcoholic hepatitis Cirrhosis of the liver/alcoholic Ascites Coagulopathy Likely portal hypertension Pleural effusion Likely related to ascites Leukocytosis Likely related to alcoholic hepatitis History of alcohol abuse/active Plan: Recommend prednisone 40 mg daily 28 days after resolution of infection Continue diureses Eventually endoscopy is advisable to rule out varices Further recommendations depend on clinical course Patient seen in collaboration with Dr. Gray Consultation Date/Type/Reason Admit Date/Time May 02, 2016 at 02:18 Initial Consult Date Type of Consultation: Gastroenterology/hepatology 24 HR Interval Summary Free Text/Dictation Patient reports less abdominal pain but still present Tolerating diet Small ascites noted on ultrasound, unable to get paracentesis Leukocytosis, prednisone stopped Exam/Review of Systems Vital Signs Vitals Vital Signs Date Time Temp Pulse Resp B/P Pulse Ox O2 Delivery O2 Flow Rate FiO2 05/03/16 08:27 99.0 92 16 121/60 92 Room Air Intake and Output 05/02/16 05/02/16 05/03/16 15:00 23:00 07:00 Intake Total 150 ml 710 ml Output Total 150 ml 700 ml Balance 0 ml 10 ml Exam Constitutional: alert, obese, oriented, other (Significant ascites), well developed, No distress Head: atraumatic, normocephalic Eyes: icteric, other Neck: non-tender, supple Respiratory: crackles/rales (Both bases), diminished breath sounds (Both bases) Cardiovascular: nl pulses, regular rate and rhythm Gastrointestinal: ascites, bowel sounds, distended, soft, tender (Mildly diffuse), No hepatomegaly, No mass, No rebound or guarding, No splenomegaly Genitourinary - Female: nl external genitalia Extremities: edema (3+ pitting edema lower extremities) Neurological: AGRICULTURE SALES ACCOUNT MANAGER II-XII intact, nl mental status, nl speech, nl strength Constitutional: alert, obese, oriented, well developed Psych: nl mood/affect Head: normocephalic Eyes: EOMI, icteric ENMT: nl external ears & nose, nl nasal mucosa & septum Respiratory: normal air movement Cardiovascular: regular rate and rhythm Gastrointestinal: soft, tender (Left lower quadrant tenderness) Neurological: AGRICULTURE SALES ACCOUNT MANAGER II-XII intact Skin: other (Jaundice) Results Result Diagram: 05/03/16 0435 05/03/16 0435 Results 24 hrs Laboratory Tests Test 05/03/16 04:35 Alanine Aminotransferase (ALT/SGPT) 32 Albumin 2.3 L Albumin/Globulin Ratio 0.46 Alkaline Phosphatase 217 H Anion Gap 16 Aspartate Amino Transf (AST/SGOT) 128 H Band Neutrophils % 4.0 Basophils # Basophils % Blood Morphology Comment Blood Urea Nitrogen 13 Calcium Level 8.1 L Carbon Dioxide Level 25 Chloride Level 96 L Creatinine 1.28 H Differential Comment MANUAL DIFF Direct Bilirubin 12.30 H Eosinophils # Eosinophils % Globulin 4.90 H Glucose Level 154 Hematocrit 27.3 L Hemoglobin 9.4 L Hemoglobin A1c 5.0 Indirect Bilirubin 2.0 H Lymphocytes # 1.1 Lymphocytes % 4.0 L Magnesium Level 2.4 Mean Corpuscular Hemoglobin 29.9 Mean Corpuscular Hemoglobin Concent 34.2 Mean Corpuscular Volume 87.3 Mean Platelet Volume 7.7 Metamyelocytes # 0.8 Metamyelocytes % 3.0 H Monocytes # 1.1 H Monocytes % 4.0 Myelocytes # 0.3 Myelocytes % 1.0 H Neutrophils # 22.3 H Neutrophils % 84.0 H Nucleated Red Blood Cells # Nucleated Red Blood Cells % 1.0 H Phosphorus Level 4.2 Platelet Count 170 # Potassium Level 3.2 L Red Blood Count 3.13 L Red Cell Distribution Width 24.9 H Sodium Level 134 L Total Bilirubin 14.3 H Total Protein 7.2 White Blood Count 26.5 H Medications Medications Current Medications Sodium Chloride (1/2 NS) 1,000 ml @ 30 mls/hr Q24H IV Last administered on 05/02 08:06; Admin Dose 30 MLS/HR; Start 05/02/16 at 08:00 Ondansetron HCl 4 mg 4 mg Q6H PRN IV NAUSEA AND/OR VOMITING Last administered on 05/02/16 12:14; Admin Dose 4 MG; Start 05/02/16 at 07:30 Ceftriaxone Sodium (Rocephin) 50 ml @ 100 mls/hr Q24H IVPB Last administered on 05/03/16 08:21; Admin Dose 100 MLS/HR; Start 05/02/16 at 07:30 Fluconazole (Diflucan) 100 mg DAILY PO Last administered on 05/03/16 08:22; Admin Dose 100 MG; Start 05/02/16 at 09:00 Folic Acid (Folic Acid) 1 mg DAILY PO Last administered on 05/03/16 08:22; Admin Dose 1 MG; Start 05/02/16 at 09:00 Furosemide (Lasix) 40 mg DAILY PO Last administered on 05/03/16 08:26; Admin Dose 40 MG; Start 05/02/16 at 09:00 Lactulose (Enulose) 20 gm Q6 PO Last administered on 05/03/16 12:34; Admin Dose 20 GM; Start 05/02/16 at 12:00 Multivitamins Therapeutic (Theragran) 1 tab DAILY PO Last administered on 08:22; Admin Dose 1 TAB; Start 05/02/16 at 09:00 Oxycodone HCl (Roxicodone) 5 mg Q4H PRN PO PAIN Last administered on 05/03/16 08:21; Admin Dose 5 MG; Start 05/02/16 at 08:00 Pantoprazole (Protonix Tab) 40 mg BID@06,18 PO Last administered on 05/03/16 05:50; Admin Dose 40 MG; Start 05/02/16 at 08:00 Spironolactone (Aldactone) 100 mg DAILY PO Last administered on 05/03/16 08:26 ; Admin Dose 100 MG; Start 05/02/16 at 09:00 GLENN GILLESPIE May 03, 2016 16:38
[2016-05-03 20:00] VITALS: BP 118/74; PULSE 76; RESP 18
[2016-05-03 21:12] VITALS: BP 108/61; RESP 18
[2016-05-04] MEDS: oxyCODONE 5 MG TAB PO PRN ×3 (05:41→20:42)
[2016-05-04] MEDS: PANTOPRAZOLE (EC) 40 MG TAB PO SCH ×2 (05:41→16:56)
[2016-05-04] MEDS: LACTULOSE 30ML CUP PO SCH ×3 (05:41→16:52)
[2016-05-04 05:44] LABS: HEMATOCRIT 26.6 % (37.0-47.0); HEMOGLOBIN 9.2 g/dl (12.0-16.0); MEAN CORPUSCULAR HEMOGLOBIN 30.1 pg (29.0-33.0); MEAN CORPUSCULAR HGB CONC 34.7 g/dl (32.0-37.0); MEAN CORPUSCULAR VOLUME 86.7 fl (82.0-101.0); MEAN PLATELET VOLUME 7.3 fl (7.4-10.4); PLATELET COUNT 148 10^3/UL (140-440); RED BLOOD COUNT 3.06 10^6/ul (4.20-5.40); RED CELL DISTRIBUTION WIDTH 24.9 % (11.5-14.5); UNCORRECTED WBC 26.6 10^3/ul (4.8-10.8); WHITE BLOOD COUNT 26.6 10^3/ul (4.8-10.8)
[2016-05-04 05:53] LABS: CONDITION 1; LH ANALYZER COMMENTS 1
[2016-05-04 05:59] LABS: ALBUMIN 2.4 g/dl (3.3-4.9); POTASSIUM 3.7 mmol/L (3.5-5.1)
[2016-05-04 06:01] LABS: BILIRUBIN,DIRECT 12.8 mg/dl (0.00-0.20); BILIRUBIN,INDIRECT 2.2 mg/dl (0-1.1); CREATININE 1.4 mg/dl (0.44-1.00)
[2016-05-04 06:02] LABS: ALBUMIN/GLOBULIN RATIO 0.47; CALCIUM 8.3 mg/dl (8.4-10.2); TOTAL PROTEIN 7.5 g/dl (6.1-8.1)
[2016-05-04 07:41] VITALS: BP 112/62; RESP 18
[2016-05-04] MEDS: CEFTRIAXONE 1 GM/50 ML (PMX) 50 ML IVPB SCH (08:05)
[2016-05-04] MEDS: FOLIC ACID 1 MG TAB PO SCH (08:06)
[2016-05-04] MEDS: FUROSEMIDE 40 MG TAB PO SCH (08:06)
[2016-05-04] MEDS: SPIRONOLACTONE 50 MG TAB PO SCH (08:06)
[2016-05-04] MEDS: MULTIVITAMINS THERAPEUTIC TAB PO SCH (08:06)
[2016-05-04] MEDS: FLUCONAZOLE 100 MG TAB PO SCH (08:06)
[2016-05-04 09:07] LABS: ANISOCYTOSIS 2+; LYMPHOCYTES # 1.1 10^3/ul (0.8-2.9); MONOCYTE # 1.6 10^3/ul (0.3-0.9); NEUTROPHIL # 21.8 10^3/ul (1.6-7.5)
[2016-05-04 09:08] LABS: BURR CELLS OCCASIONAL
[2016-05-04] MEDS: SOD CHLORIDE 0.45% 1,000 ML IV SCH (10:29)
--- NOTE | 2016-05-04 14:33 | CONS ---
Date/Time of Note Date/Time of Note DATE: 05/04/16 TIME: 14:22 Assessment/Plan Assessment/Plan Additional Assessment/Plan Severe alcoholic hepatitis * Glucocorticoid therapy for severe alcoholic hepatitis typically consists of prednisolone 40 mg per day for 28 days, followed by a taper over two to four weeks. Prednisolone is preferred over prednisone because the latter requires conversion to prednisolone (the active form) in the liver, a process that may be impaired in alcoholic hepatitis. Cirrhosis of the liver/alcoholic * Ascites * Coagulopathy * Likely portal hypertension Pleural effusion * Likely related to ascites Leukocytosis * Likely related to alcoholic hepatitis History of alcohol abuse/active Plan: Continue prednisolone 40 mg per day for 28 days Continue diureses Eventually endoscopy is advisable to rule out varices Further recommendations depend on clinical course Patient seen in collaboration with Dr. Gray Consultation Date/Type/Reason Admit Date/Time May 02, 2016 at 02:18 Type of Consultation: Gastroenterology/hepatology 24 HR Interval Summary Free Text/Dictation Will restart glucocorticoid therapy for pt's alcoholic hepatitis Exam/Review of Systems Vital Signs Vitals Vital Signs Date Time Temp Pulse Resp B/P Pulse Ox O2 Delivery O2 Flow Rate FiO2 05/04/16 07:41 98.3 95 18 112/62 95 05/03/16 20:00 Room Air Intake and Output 05/03/16 05/03/16 05/04/16 14:59 22:59 06:59 Intake Total 2010 ml 840 ml Output Total 2050 ml 900 ml Balance -40 ml -60 ml Results Result Diagram: 05/04/16 0420 05/04/16 0420 Results 24 hrs Laboratory Tests Test 05/04/16 04:20 Alanine Aminotransferase (ALT/SGPT) 28 Albumin 2.4 L Albumin/Globulin Ratio 0.47 Alkaline Phosphatase 225 H Anion Gap 17 H Anisocytosis 2+ Aspartate Amino Transf (AST/SGOT) 95 H Band Neutrophils % 7.0 H Blood Morphology Comment Blood Urea Nitrogen 16 Calcium Level 8.3 L Carbon Dioxide Level 24 Chloride Level 100 Creatinine 1.40 H Differential Comment MANUAL DIFF Direct Bilirubin 12.80 H Globulin 5.10 H Glucose Level 118 Hematocrit 26.6 L Hemoglobin 9.2 L Indirect Bilirubin 2.2 H Lymphocytes # 1.1 Lymphocytes % 4.0 L Mean Corpuscular Hemoglobin 30.1 Mean Corpuscular Hemoglobin Concent 34.7 Mean Corpuscular Volume 86.7 Mean Platelet Volume 7.3 L Metamyelocytes # 0.3 Metamyelocytes % 1.0 H Monocytes # 1.6 H Monocytes % 6.0 Neutrophils # 21.8 H Neutrophils % 82.0 H Platelet Count 148 Potassium Level 3.7 Red Blood Count 3.06 L Red Cell Distribution Width 24.9 H Sodium Level 137 Total Bilirubin 15.0 H Total Protein 7.5 White Blood Count 26.6 H Medications Medications Current Medications Sodium Chloride (1/2 NS) 1,000 ml @ 30 mls/hr Q24H IV Last administered on 10:29; Admin Dose 30 MLS/HR; Start 05/02/16 at 08:00 Ondansetron HCl 4 mg 4 mg Q6H PRN IV NAUSEA AND/OR VOMITING Last administered on 05/02/16 12:14; Admin Dose 4 MG; Start 05/02/16 at 07:30 Ceftriaxone Sodium (Rocephin) 50 ml @ 100 mls/hr Q24H IVPB Last administered on 05/04/16 08:05; Admin Dose 100 MLS/HR; Start 05/02/16 at 07:30 Fluconazole (Diflucan) 100 mg DAILY PO Last administered on 05/04/16 08:06; Admin Dose 100 MG; Start 05/02/16 at 09:00 Folic Acid (Folic Acid) 1 mg DAILY PO Last administered on 05/04/16 08:06; Admin Dose 1 MG; Start 05/02/16 at 09:00 Furosemide (Lasix) 40 mg DAILY PO Last administered on 05/04/16 08:06; Admin Dose 40 MG; Start 05/02/16 at 09:00 Lactulose (Enulose) 20 gm Q6 PO Last administered on 05/04/16 10:29; Admin Dose 20 GM; Start 05/02/16 at 12:00 Multivitamins Therapeutic (Theragran) 1 tab DAILY PO Last administered on 08:06; Admin Dose 1 TAB; Start 05/02/16 at 09:00 Oxycodone HCl (Roxicodone) 5 mg Q4H PRN PO PAIN Last administered on 05/04/16 12:40; Admin Dose 5 MG; Start 05/02/16 at 08:00 Pantoprazole (Protonix Tab) 40 mg BID@06,18 PO Last administered on 05/04/16 05:41; Admin Dose 40 MG; Start 05/02/16 at 08:00 Spironolactone (Aldactone) 100 mg DAILY PO Last administered on 05/04/16 08:06 ; Admin Dose 100 MG; Start 05/02/16 at 09:00 GLENN GILLESPIE May 04, 2016 14:32
--- NOTE | 2016-05-04 15:04 | PN ---
Date/Time of Note Date/Time of Note DATE: 05/04/16 TIME: 14:59 Assessment/Plan VTE Prophylaxis VTE Prophylaxis Intervention: SCD's Lines/Catheters IV [facility]ter [facility]from [facility] Urinary Cath still in place: No Assessment/Plan Assessment/Plan 1. Abdominal pain, possiblespontaneous bacterial peritonitis, on antibiotics, ID consult 2. Leukocytosis, possibly secondary to spontaneous bacterial peritonitis. 3. Left side pleural effusion. likely from ascites 4. Alcohol abuse with a history of cirrhosis, chronic 5. Prophylaxis. SCDs. Subjective 24 Hr Interval Summary Free Text/Dictation less pain, afebrile Exam/Review of Systems Vital Signs Vitals Vital Signs Date Time Temp Pulse Resp B/P Pulse Ox O2 Delivery O2 Flow Rate FiO2 05/04/16 07:41 98.3 95 18 112/62 95 05/03/16 20:00 Room Air Intake and Output 05/03/16 05/03/16 05/04/16 15:00 23:00 07:00 Intake Total 2010 ml 840 ml Output Total 2050 ml 900 ml Balance -40 ml -60 ml Exam Constitutional: alert, oriented, well developed Psych: nl mood/affect, no complaints Head: atraumatic, normocephalic Eyes: EOMI, PERRL, nl conjunctiva, nl lids ENMT: mucosa pink and moist, nl external ears & nose, nl lips & teeth, nl nasal mucosa & septum Neck: non-tender, supple Respiratory: clear to auscultation, normal air movement Cardiovascular: nl pulses, regular rate and rhythm Gastrointestinal: distended, nl liver, spleen, non-tender, soft, tender ( diffuse) Extremities: normal pulses, No calf tenderness, No clubbing, No cyanosis, No edema, No palpable cord, No pitting pedal edema, No tenderness Neurological: GRANITE CUTTER II-XII intact, nl mental status, nl speech, nl strength Skin: nl turgor, rash or lesions Lymph: nl lymph nodes Results Result Diagram: 05/04/1641905/04/16419 Results 24 hrs Laboratory Tests Test 05/04/16 04:20 Alanine Aminotransferase (ALT/SGPT) 28 Albumin 2.4 L Albumin/Globulin Ratio 0.47 Alkaline Phosphatase 225 H Anion Gap 17 H Anisocytosis 2+ Aspartate Amino Transf (AST/SGOT) 95 H Band Neutrophils % 7.0 H Blood Morphology Comment Blood Urea Nitrogen 16 Calcium Level 8.3 L Carbon Dioxide Level 24 Chloride Level 100 Creatinine 1.40 H Differential Comment MANUAL DIFF Direct Bilirubin 12.80 H Globulin 5.10 H Glucose Level 118 Hematocrit 26.6 L Hemoglobin 9.2 L Indirect Bilirubin 2.2 H Lymphocytes # 1.1 Lymphocytes % 4.0 L Mean Corpuscular Hemoglobin 30.1 Mean Corpuscular Hemoglobin Concent 34.7 Mean Corpuscular Volume 86.7 Mean Platelet Volume 7.3 L Metamyelocytes # 0.3 Metamyelocytes % 1.0 H Monocytes # 1.6 H Monocytes % 6.0 Neutrophils # 21.8 H Neutrophils % 82.0 H Platelet Count 148 Potassium Level 3.7 Red Blood Count 3.06 L Red Cell Distribution Width 24.9 H Sodium Level 137 Total Bilirubin 15.0 H Total Protein 7.5 White Blood Count 26.6 H Medications Medications Current Medications Sodium Chloride (1/2 NS) 1,000 ml @ 30 mls/hr Q24H IV Last administered on 10:29; Admin Dose 30 MLS/HR; Start 05/02/16 at 08:00 Ondansetron HCl 4 mg 4 mg Q6H PRN IV NAUSEA AND/OR VOMITING Last administered on 05/02/16 12:14; Admin Dose 4 MG; Start 05/02/16 at 07:30 Ceftriaxone Sodium (Rocephin) 50 ml @ 100 mls/hr Q24H IVPB Last administered on 05/04/16 08:05; Admin Dose 100 MLS/HR; Start 05/02/16 at 07:30 Fluconazole (Diflucan) 100 mg DAILY PO Last administered on 05/04/16 08:06; Admin Dose 100 MG; Start 05/02/16 at 09:00 Folic Acid (Folic Acid) 1 mg DAILY PO Last administered on 05/04/16 08:06; Admin Dose 1 MG; Start 05/02/16 at 09:00 Furosemide (Lasix) 40 mg DAILY PO Last administered on 05/04/16 08:06; Admin Dose 40 MG; Start 05/02/16 at 09:00 Lactulose (Enulose) 20 gm Q6 PO Last administered on 05/04/16 10:29; Admin Dose 20 GM; Start 05/02/16 at 12:00 Multivitamins Therapeutic (Theragran) 1 tab DAILY PO Last administered on 08:06; Admin Dose 1 TAB; Start 05/02/16 at 09:00 Oxycodone HCl (Roxicodone) 5 mg Q4H PRN PO PAIN Last administered on 05/04/16 12:40; Admin Dose 5 MG; Start 05/02/16 at 08:00 Pantoprazole (Protonix Tab) 40 mg BID@06,18 PO Last administered on 05/04/16 05:41; Admin Dose 40 MG; Start 05/02/16 at 08:00 Spironolactone (Aldactone) 100 mg DAILY PO Last administered on 05/04/16 08:06 ; Admin Dose 100 MG; Start 05/02/16 at 09:00 Prednisolone (Prednisolone) 40 mg DAILY PO ; Start 05/04/16 at 14:30; Stop at 14:29 MIRZA AKHTAR MD May 04, 2016 15:03
[2016-05-04] MEDS: predniSOLONE 5 MG TAB PO SCH (16:52)
[2016-05-04] MEDS ORDERED: VANCOMYCIN IV PER PHARMACY XX SCH (17:00)
--- NOTE | 2016-05-04 17:50 | CONS ---
DATE OF ADMISSION: 05/02/2016 DATE OF CONSULTATION: 05/04/2016 TYPE FOR CONSULTATION: Infectious Disease. REASON FOR CONSULTATION: Antibiotic management. HISTORY OF PRESENT ILLNESS: Cesilia Costa is a 30-year-old female with numerous problems who comes in with abdominal pain. Past problems include: 1. Alcohol abuse with cirrhosis. The patient is on the liver transplant list, last drink was 2 wee ks ago. The patient has been having abdominal pain since then. She never had paracentesis before, never diagnosed before with acute ascites but her abdomen does get distended. She has been getting progressively worse over the last 2 weeks and so came into the emergency room on 05/02/2016. PAST SURGICAL HISTORY: Status post appendectomy, status post cholecystectomy. FAMILY HISTORY: Noncontributory. SOCIAL HISTORY: As outlined. She does not smoke or abuse drugs. ALLERGIES: NONE TO PENICILLIN, SULFA OR FOODS. MEDICATIONS: Per chart. REVIEW OF SYSTEMS: As per HPI. PHYSICAL EXAMINATION: GENERAL: The patient is a well-developed, well-nourished female who is awake, responsive, in no acu te distress. VITAL SIGNS: Stable. She is afebrile. SKIN: Without generalized rash. HEENT: Within normal limits. NECK: Supple. LYMPH NODES: None palpable. CHEST: Decreased breath sounds at the bases. HEART: Without murmur or gallop. ABDOMEN: Soft, distended, tender without organosplenomegaly or masses. EXTREMITIES: Without cyanosis, clubbing, or edema. RECTAL AND GENITAL: Deferred. NEUROLOGICAL: No focal neurological abnormality. HOSPITAL COURSE: On 05/02/2016 her white count was 26.8. Her H and H was 11.2 and 32.9, platelet c ount 227, BUN and creatinine 13/1.21, glucose of 127. Patient was seen by Dr. Wheeler in pulmonary consultation. She was seen by Dr. Gray for GI. He noted severe alcoholic hepatitis, cirrhosis of liver, pleural effusion, leukocytosis. She is supposed to have an appointment at [facility] today thought was that she might have spontaneous bacterial peritonitis. Patient still has a white count of 26.6 . She is on ceftriaxone alone. Her chest x-ray shows moderate right pleural effusion. There is ass ociated atelectasis or pneumonia throughout at right mid and lower lung zones, also unchanged, mild left basilar atelectasis, left lung is otherwise clear. She has not had a paracentesis. Her nitrit e is positive. Leukocyte esterase is negative, 0 to 2 white cells per high powered field. IMPRESSION: We should get a urine culture. Blood cultures were done. Sputum culture and place her on vancomycin and cefepime. I will dictate my findings to the hospitalist. She also was placed I believe on prednisolone for alcoholic hepatitis and this may be keeping her white count up as well. She is on fluconazole and ceftriaxone. Dictated By: ANNA ROBLES MD, JD/BE Conf#: [id number] DID#: [id number]
[2016-05-04] MEDS ORDERED: VANCOMYCIN 2 GM in SOD CHLORIDE 0.9% 500 ML IVPB SCH (20:00)
[2016-05-04] MEDS: CEFEPIME 1GM/50 ML (PMX) 50 ML IVPB SCH (20:42)
[2016-05-05] MEDS: LACTULOSE 30ML CUP PO SCH ×5 (00:27→23:50)
[2016-05-05] MEDS: PANTOPRAZOLE (EC) 40 MG TAB PO SCH ×2 (05:38→18:26)
[2016-05-05] MEDS: oxyCODONE 5 MG TAB PO PRN ×4 (06:36→20:16)
[2016-05-05 07:26] VITALS: BP 118/60; RESP 20
[2016-05-05 07:31] LABS: HEMATOCRIT 26.4 % (37.0-47.0); HEMOGLOBIN 9.1 g/dl (12.0-16.0); MEAN CORPUSCULAR HEMOGLOBIN 30.2 pg (29.0-33.0); MEAN CORPUSCULAR HGB CONC 34.4 g/dl (32.0-37.0); MEAN CORPUSCULAR VOLUME 87.9 fl (82.0-101.0); PLATELET COUNT 104 10^3/UL (140-440); RED CELL DISTRIBUTION WIDTH 25.5 % (11.5-14.5); UNCORRECTED WBC 24.3 10^3/ul (4.8-10.8); WHITE BLOOD COUNT 24.3 10^3/ul (4.8-10.8)
[2016-05-05 07:39] LABS: CONDITION 1; LH ANALYZER COMMENTS 1; SUSPECT 1
[2016-05-05 07:42] LABS: ALBUMIN 2.4 g/dl (3.3-4.9)
[2016-05-05 07:43] LABS: POTASSIUM 3.6 mmol/L (3.5-5.1)
[2016-05-05 07:45] LABS: ALBUMIN/GLOBULIN RATIO 0.48; BILIRUBIN,DIRECT 12.1 mg/dl (0.00-0.20); BILIRUBIN,INDIRECT 2.2 mg/dl (0-1.1); BILIRUBIN,TOTAL 14.3 mg/dl (0.2-1.3); CREATININE 1.18 mg/dl (0.44-1.00); TOTAL PROTEIN 7.4 g/dl (6.1-8.1)
[2016-05-05 07:46] LABS: CALCIUM 8.1 mg/dl (8.4-10.2)
[2016-05-05] MEDS: SOD CHLORIDE 0.45% 1,000 ML IV SCH (08:46)
[2016-05-05] MEDS: CEFEPIME 1GM/50 ML (PMX) 50 ML IVPB SCH ×2 (08:46→20:17)
[2016-05-05] MEDS: FLUCONAZOLE 100 MG TAB PO SCH (08:47)
[2016-05-05] MEDS: SPIRONOLACTONE 50 MG TAB PO SCH (08:47)
[2016-05-05] MEDS: MULTIVITAMINS THERAPEUTIC TAB PO SCH (08:47)
[2016-05-05] MEDS: FOLIC ACID 1 MG TAB PO SCH (08:47)
[2016-05-05] MEDS: FUROSEMIDE 40 MG TAB PO SCH (08:49)
[2016-05-05] MEDS: predniSOLONE 5 MG TAB PO SCH (08:49)
[2016-05-05 09:53] LABS: ANISOCYTOSIS 2+; MONOCYTE # 0.7 10^3/ul (0.3-0.9); NEUTROPHIL # 20.2 10^3/ul (1.6-7.5)
[2016-05-05] MEDS: VANCOMYCIN 1 GM in NS 250 ML IVPB SCH ×2 (12:12→21:50)
--- NOTE | 2016-05-05 15:26 | CONS ---
Date/Time of Note Date/Time of Note DATE: 05/05/16 TIME: 15:25 Assessment/Plan Assessment/Plan Additional Assessment/Plan Severe alcoholic hepatitis * Glucocorticoid therapy for severe alcoholic hepatitis typically consists of prednisolone 40 mg per day for 28 days, followed by a taper over two to four weeks. Prednisolone is preferred over prednisone because the latter requires conversion to prednisolone (the active form) in the liver, a process that may be impaired in alcoholic hepatitis. Cirrhosis of the liver/alcoholic * Ascites * Coagulopathy * Likely portal hypertension Pleural effusion * Likely related to ascites Leukocytosis * Likely related to alcoholic hepatitis History of alcohol abuse/active Plan: Continue prednisolone 40 mg per day for 28 days Continue diureses Eventually endoscopy is advisable to rule out varices Further recommendations depend on clinical course Patient seen in collaboration with Dr. Gray Consultation Date/Type/Reason Admit Date/Time May 02, 2016 at 02:18 Type of Consultation: Gastroenterology/hepatology 24 HR Interval Summary Free Text/Dictation Tolerating diet Abdominal pain improving Exam/Review of Systems Vital Signs Vitals Vital Signs Date Time Temp Pulse Resp B/P Pulse Ox O2 Delivery O2 Flow Rate FiO2 05/05/16 07:26 98.2 93 20 118/60 95 05/03/16 20:00 Room Air Intake and Output 05/04/16 05/04/16 05/05/16 15:00 23:00 07:00 Intake Total 1660 ml 1800 ml Balance 1660 ml 1800 ml Exam Constitutional: alert, obese, oriented, other (Significant ascites), well developed, No distress Head: atraumatic, normocephalic Eyes: icteric, other Neck: non-tender, supple Respiratory: crackles/rales (Both bases), diminished breath sounds (Both bases) Cardiovascular: nl pulses, regular rate and rhythm Gastrointestinal: ascites, bowel sounds, distended, soft, tender (Mildly diffuse), No hepatomegaly, No mass, No rebound or guarding, No splenomegaly Genitourinary - Female: nl external genitalia Extremities: edema (3+ pitting edema lower extremities) Neurological: SCHOOL PLANT CONSULTANT II-XII intact, nl mental status, nl speech, nl strength Constitutional: alert, obese, oriented, well developed Psych: nl mood/affect Head: normocephalic Eyes: EOMI, icteric ENMT: nl external ears & nose, nl nasal mucosa & septum Respiratory: normal air movement Cardiovascular: regular rate and rhythm Gastrointestinal: soft, tender (Left lower quadrant tenderness) Neurological: SCHOOL PLANT CONSULTANT II-XII intact Skin: other (Jaundice) Results Result Diagram: 05/05/16 0554 05/05/16 0554 Results 24 hrs Laboratory Tests Test 05/05/16 05:54 Alanine Aminotransferase (ALT/SGPT) 30 Albumin 2.4 L Albumin/Globulin Ratio 0.48 Alkaline Phosphatase 222 H Anion Gap 19 H Anisocytosis 2+ Aspartate Amino Transf (AST/SGOT) 98 H Band Neutrophils % 10.0 H Basophils # Basophils % Blood Morphology Comment Blood Urea Nitrogen 14 Calcium Level 8.1 L Carbon Dioxide Level 23 Chloride Level 104 Creatinine 1.18 H Differential Comment MANUAL DIFF Direct Bilirubin 12.10 H Eosinophils # Eosinophils % Globulin 5.00 H Glucose Level 147 Hematocrit 26.4 L Hemoglobin 9.1 L Indirect Bilirubin 2.2 H Lymphocytes # 1.0 Lymphocytes % 4.0 L Mean Corpuscular Hemoglobin 30.2 Mean Corpuscular Hemoglobin Concent 34.4 Mean Corpuscular Volume 87.9 Mean Platelet Volume 8.0 Monocytes # 0.7 Monocytes % 3.0 Neutrophils # 20.2 H Neutrophils % 83.0 H Nucleated Red Blood Cells # Nucleated Red Blood Cells % Platelet Count 104 #L Potassium Level 3.6 Red Blood Count 3.00 L Red Cell Distribution Width 25.5 H Sodium Level 142 Total Bilirubin 14.3 H Total Protein 7.4 White Blood Count 24.3 H Medications Medications Current Medications Sodium Chloride (1/2 NS) 1,000 ml @ 30 mls/hr Q24H IV Last administered on 08:46; Admin Dose 30 MLS/HR; Start 05/02/16 at 08:00 Ondansetron HCl (Zofran Inj) 4 mg Q6H PRN IV NAUSEA AND/OR VOMITING Last administered on 05/02/16 12:14; Admin Dose 4 MG; Start 05/02/16 at 07:30 Fluconazole (Diflucan) 100 mg DAILY PO Last administered on 05/05/16 08:47; Admin Dose 100 MG; Start 05/02/16 at 09:00 Folic Acid (Folic Acid) 1 mg DAILY PO Last administered on 05/05/16 08:47; Admin Dose 1 MG; Start 05/02/16 at 09:00 Furosemide (Lasix) 40 mg DAILY PO Last administered on 05/05/16 08:49; Admin Dose 40 MG; Start 05/02/16 at 09:00 Lactulose (Enulose) 20 gm Q6 PO Last administered on 05/05/16 12:11; Admin Dose 20 GM; Start 05/02/16 at 12:00 Multivitamins Therapeutic (Theragran) 1 tab DAILY PO Last administered on 08:47; Admin Dose 1 TAB; Start 05/02/16 at 09:00 Oxycodone HCl (Roxicodone) 5 mg Q4H PRN PO PAIN Last administered on 05/05/16 12:11; Admin Dose 5 MG; Start 05/02/16 at 08:00 Pantoprazole (Protonix Tab) 40 mg BID@06,18 PO Last administered on 05/05/16 05:38; Admin Dose 40 MG; Start 05/02/16 at 08:00 Spironolactone (Aldactone) 100 mg DAILY PO Last administered on 05/05/16 08:47 ; Admin Dose 100 MG; Start 05/02/16 at 09:00 Prednisolone 40 mg 40 mg DAILY PO Last administered on 05/05/16 08:49; Admin Dose 40 MG; Start 05/04/16 at 14:30; Stop 05/31/16 at 14:29 Cefepime HCl 50 ml @ 100 mls/hr Q12 IVPB Last administered on 05/05/16 08:46 ; Admin Dose 100 MLS/HR; Start 05/04/16 at 21:00 Vancomycin HCl (Vancocin) 250 ml @ 125 mls/hr Q12H IVPB Last administered on 12:12; Admin Dose 125 MLS/HR; Start 05/05/16 at 10:00 GLENN GILLESPIE May 05, 2016 15:26
--- NOTE | 2016-05-05 17:23 | PN ---
DATE: SUBJECTIVE: No acute changes overnight. The patient is alert, feels better. Denies pain. Looks c omfortable, no fevers. LABORATORY DATA: WBC 24.3, H and H 9.1 and 26.4, platelets 104, neutrophils 83, bands 10, lymphs 4, monos 3. BUN 14, creatinine 1.18. MICROBIOLOGY: Urinalysis on admission came back positive for nitrite, moderate amount of bacteria, negative for leukocyte esterase. Urine culture grew E. coli susceptible to amikacin, cefotaxime, Ma crobid. Blood cultures have been negative. Abdominal ultrasound revealed small ascites. ANTIMICROBIALS: 1. Vancomycin. 2. Cefepime. 3. Fluconazole. PHYSICAL EXAMINATION: GENERAL: Chronically ill-appearing, middle-aged woman who is awake, in no distress. HEENT: Head atraumatic, normocephalic. Sclerae icteric. Buccal mucosa dry. NECK: Supple. Trachea midline. CHEST: Rise symmetrical. Breath sounds diminished to bases. HEART: S1, S2. ABDOMEN: Soft, obese. Bowel tones hypoactive. EXTREMITIES: Without cyanosis. ASSESSMENT: 1. Systemic inflammatory response syndrome with persistent leukocytosis, possibly secondary to Esch erichia coli urinary tract infection versus questionable spontaneous bacterial peritonitis versus re active. 2. Escherichia coli urinary tract infection. 3. Alcoholic cirrhosis. 4. Anemia with thrombocytopenia. PLAN: The patient remains stable, overall improving. We will continue her on current antimicrobial s. Follow GI recommendations. Dictated By: NOEL SHARIF COMMERCIAL REPORTER for ANNA ROBLES MD NI/NTS Conf#: [id number] DID#: [id number] CC: TITUS GARCIA MD;*EndCC*
[2016-05-05 20:32] VITALS: BP 112/65; RESP 19
[2016-05-06] MEDS: oxyCODONE 5 MG TAB PO PRN ×5 (00:49→21:45)
[2016-05-06] MEDS: LACTULOSE 30ML CUP PO SCH ×3 (06:05→17:16)
[2016-05-06] MEDS: PANTOPRAZOLE (EC) 40 MG TAB PO SCH ×2 (06:05→17:16)
[2016-05-06 07:18] LABS: CREATININE 1.11 mg/dl (0.44-1.00)
[2016-05-06] MEDS: SOD CHLORIDE 0.45% 1,000 ML IV SCH (08:00)
[2016-05-06 08:29] VITALS: BP 108/58; RESP 20
[2016-05-06] MEDS: FUROSEMIDE 40 MG TAB PO SCH (09:00)
[2016-05-06] MEDS: CEFEPIME 1GM/50 ML (PMX) 50 ML IVPB SCH ×2 (09:32→21:11)
[2016-05-06] MEDS: SPIRONOLACTONE 50 MG TAB PO SCH (09:33)
[2016-05-06] MEDS: FLUCONAZOLE 100 MG TAB PO SCH (09:33)
[2016-05-06] MEDS: MULTIVITAMINS THERAPEUTIC TAB PO SCH (09:33)
[2016-05-06] MEDS: FOLIC ACID 1 MG TAB PO SCH (09:33)
[2016-05-06] MEDS: predniSOLONE 5 MG TAB PO SCH (09:35)
--- NOTE | 2016-05-06 13:01 | CONS ---
Date/Time of Note Date/Time of Note DATE: 05/06/16 TIME: 12:59 Consult Date/Type/Reason Admit Date/Time May 02, 2016 at 02:18 Initial Consult Date Type of Consultation: ID Subjective no events, alert, feels better, no fevers, nad Objective Vital Signs Date Time Temp Pulse Resp B/P Pulse Ox O2 Delivery O2 Flow Rate FiO2 05/06/16 08:29 98.6 71 20 108/58 98 05/03/16 20:00 Room Air Intake and Output 05/05/16 05/05/16 05/06/16 14:59 22:59 06:59 Intake Total 300 ml 1550 ml 1585 ml Balance 300 ml 1550 ml 1585 ml Results/Medications Result Diagram: 05/05/16 0554 05/06/16 0440 Results 24 hrs Laboratory Tests Test 05/06/16 04:40 05/06/16 08:50 Blood Urea Nitrogen 17 Creatinine 1.11 H Vancomycin Level Trough 23.2 *H Medications Current Medications Sodium Chloride (1/2 NS) 1,000 ml @ 30 mls/hr Q24H IV Last administered on 08:46; Admin Dose 30 MLS/HR; Start 05/02/16 at 08:00 Ondansetron HCl (Zofran Inj) 4 mg Q6H PRN IV NAUSEA AND/OR VOMITING Last administered on 05/02/16 12:14; Admin Dose 4 MG; Start 05/02/16 at 07:30 Fluconazole (Diflucan) 100 mg DAILY PO Last administered on 05/06/16 09:33; Admin Dose 100 MG; Start 05/02/16 at 09:00 Folic Acid (Folic Acid) 1 mg DAILY PO Last administered on 05/06/16 09:33; Admin Dose 1 MG; Start 05/02/16 at 09:00 Furosemide (Lasix) 40 mg DAILY PO Last administered on 05/05/16 08:49; Admin Dose 40 MG; Start 05/02/16 at 09:00 Lactulose (Enulose) 20 gm Q6 PO Last administered on 05/06/16 11:52; Admin Dose 20 GM; Start 05/02/16 at 12:00 Multivitamins Therapeutic (Theragran) 1 tab DAILY PO Last administered on 09:33; Admin Dose 1 TAB; Start 05/02/16 at 09:00 Oxycodone HCl (Roxicodone) 5 mg Q4H PRN PO PAIN Last administered on 05/06/16 11:52; Admin Dose 5 MG; Start 05/02/16 at 08:00 Pantoprazole (Protonix Tab) 40 mg BID@06,18 PO Last administered on 05/06/16 06:05; Admin Dose 40 MG; Start 05/02/16 at 08:00 Spironolactone (Aldactone) 100 mg DAILY PO Last administered on 05/06/16 09:33 ; Admin Dose 100 MG; Start 05/02/16 at 09:00 Prednisolone 40 mg 40 mg DAILY PO Last administered on 05/06/16 09:35; Admin Dose 40 MG; Start 05/04/16 at 14:30; Stop 05/31/16 at 14:29 Cefepime HCl (Maxipime 1gm/50 ml (Pmx)) 50 ml @ 100 mls/hr Q12 IVPB Last administered on 05/06/16 09:32; Admin Dose 100 MLS/HR; Start 05/04/16 at 21:00 Assessment/Plan Chief Complaint/Hosp Course MICROBIOLOGY: Urinalysis on admission came back positive for nitrite, moderate amount of bacteria, negative for leukocyte esterase. Urine culture grew E. coli susceptible to amikacin, cefotaxime, Macrobid. Blood cultures have been negative. Abdominal ultrasound revealed small ascites. ANTIMICROBIALS: 1. Vancomycin. 2. Cefepime. 3. Fluconazole. PHYSICAL EXAMINATION: GENERAL: Chronically ill-appearing, middle-aged woman who is awake, in no distress. HEENT: Head atraumatic, normocephalic. Sclerae icteric. Buccal mucosa dry. NECK: Supple. Trachea midline. CHEST: Rise symmetrical. Breath sounds diminished to bases. HEART: S1, S2. ABDOMEN: Soft, obese. Bowel tones hypoactive. EXTREMITIES: Without cyanosis. ASSESSMENT: 1. Systemic inflammatory response syndrome with persistent leukocytosis, possibly secondary to Escherichia coli urinary tract infection versus questionable spontaneous bacterial peritonitis versus reactive. 2. Escherichia coli urinary tract infection. 3. Alcoholic cirrhosis. 4. Anemia with thrombocytopenia. PLAN: The patient remains stable, overall improving. We will continue her on current antimicrobials. Follow GI recommendations. Add oral Nystatin DW pt/staff Problems: NOEL SHARIF NP May 06, 2016 13:01
[2016-05-06] MEDS ORDERED: NYSTATIN SUSP 5 ML CUP PO ONE (13:30)
--- NOTE | 2016-05-06 15:08 | PN ---
Date/Time of Note Date/Time of Note DATE: 05/06/16 TIME: 15:06 Assessment/Plan VTE Prophylaxis VTE Prophylaxis Intervention: SCD's Lines/Catheters IV Catheter Type (from Nrs): Peripheral IV Urinary Cath still in place: No Assessment/Plan Assessment/Plan 1. Abdominal pain, possible spontaneous bacterial peritonitis, on antibiotics, follow up with ID 2. Leukocytosis, possibly secondary to spontaneous bacterial peritonitis. 3. Left side pleural effusion. likely from ascites 4. Alcohol abuse with a history of cirrhosis, chronic 5. Prophylaxis. SCDs. Subjective 24 Hr Interval Summary Free Text/Dictation still has abdominal pain, afebrile Exam/Review of Systems Vital Signs Vitals Vital Signs Date Time Temp Pulse Resp B/P Pulse Ox O2 Delivery O2 Flow Rate FiO2 05/06/16 08:29 98.6 71 20 108/58 98 05/03/16 20:00 Room Air Intake and Output 05/05/16 05/05/16 05/06/16 15:00 23:00 07:00 Intake Total 300 ml 1550 ml 1585 ml Balance 300 ml 1550 ml 1585 ml Exam Constitutional: alert, oriented, well developed Psych: nl mood/affect, no complaints Head: atraumatic, normocephalic Eyes: EOMI, PERRL, nl conjunctiva, nl lids ENMT: nl external ears & nose, nl lips & teeth, nl nasal mucosa & septum Neck: non-tender, supple Respiratory: clear to auscultation, normal air movement Cardiovascular: nl pulses, regular rate and rhythm Gastrointestinal: distended, soft, tender Musculoskeletal: nl extremities to inspection, nl gait and stance Extremities: normal pulses Neurological: CAREER DEVELOPMENT MANAGER II-XII intact, nl mental status, nl speech, nl strength Skin: nl turgor, rash or lesions Lymph: nl lymph nodes Results Result Diagram: 05/05/16 0554 05/06/16 0440 Results 24 hrs Laboratory Tests Test 05/06/16 04:40 05/06/16 08:50 Blood Urea Nitrogen 17 Creatinine 1.11 H Vancomycin Level Trough 23.2 *H Medications Medications Current Medications Sodium Chloride (1/2 NS) 1,000 ml @ 30 mls/hr Q24H IV Last administered on t 08:46; Admin Dose 30 MLS/HR; Start 05/02/16 at 08:00 Ondansetron HCl (Zofran Inj) 4 mg Q6H PRN IV NAUSEA AND/OR VOMITING Last administered on 05/02/16 12:14; Admin Dose 4 MG; Start 05/02/16 at 07:30 Fluconazole (Diflucan) 100 mg DAILY PO Last administered on 05/06/16 09:33; Admin Dose 100 MG; Start 05/02/16 at 09:00 Folic Acid (Folic Acid) 1 mg DAILY PO Last administered on 05/06/16 09:33; Admin Dose 1 MG; Start 05/02/16 at 09:00 Furosemide (Lasix) 40 mg DAILY PO Last administered on 05/05/16 08:49; Admin Dose 40 MG; Start 05/02/16 at 09:00 Lactulose (Enulose) 20 gm Q6 PO Last administered on 05/06/16 11:52; Admin Dose 20 GM; Start 05/02/16 at 12:00 Multivitamins Therapeutic (Theragran) 1 tab DAILY PO Last administered on 09:33; Admin Dose 1 TAB; Start 05/02/16 at 09:00 Oxycodone HCl (Roxicodone) 5 mg Q4H PRN PO PAIN Last administered on 05/06/16 11:52; Admin Dose 5 MG; Start 05/02/16 at 08:00 Pantoprazole (Protonix Tab) 40 mg BID@06,18 PO Last administered on 05/06/16 06:05; Admin Dose 40 MG; Start 05/02/16 at 08:00 Spironolactone (Aldactone) 100 mg DAILY PO Last administered on 05/06/16 09:33 ; Admin Dose 100 MG; Start 05/02/16 at 09:00 Prednisolone 40 mg 40 mg DAILY PO Last administered on 05/06/16 09:35; Admin Dose 40 MG; Start 05/04/16 at 14:30; Stop 05/31/16 at 14:29 Cefepime HCl 50 ml @ 100 mls/hr Q12 IVPB Last administered on 05/06/16 09:32 ; Admin Dose 100 MLS/HR; Start 05/04/16 at 21:00 Vancomycin HCl (Vancocin) 100 ml @ 100 mls/hr Q12H IVPB ; Start 05/07/16 at 00: 00 MIRZA AKHTAR MD 13, 2017 15:08
--- NOTE | 2016-05-06 18:37 | CONS ---
Date/Time of Note Date/Time of Note DATE: 05/06/16 TIME: 18:35 Assessment/Plan Assessment/Plan Additional Assessment/Plan Severe alcoholic hepatitis * Glucocorticoid therapy for severe alcoholic hepatitis typically consists of prednisolone 40 mg per day for 28 days, followed by a taper over two to four weeks. Prednisolone is preferred over prednisone because the latter requires conversion to prednisolone (the active form) in the liver, a process that may be impaired in alcoholic hepatitis. Cirrhosis of the liver/alcoholic * Ascites * Coagulopathy * Likely portal hypertension Pleural effusion * Likely related to ascites Leukocytosis * Likely related to alcoholic hepatitis History of alcohol abuse/active Plan: Continue prednisolone 40 mg per day for 28 days Continue diureses Eventually endoscopy is advisable to rule out varices Further recommendations depend on clinical course Patient seen in collaboration with Dr. Villatoro Consultation Date/Type/Reason Admit Date/Time May 02, 2016 at 02:18 Type of Consultation: GI 24 HR Interval Summary Free Text/Dictation Abdominal pain improving Tolerating diet Ambulating hallway Exam/Review of Systems Vital Signs Vitals Vital Signs Date Time Temp Pulse Resp B/P Pulse Ox O2 Delivery O2 Flow Rate FiO2 05/06/16 08:29 98.6 71 20 108/58 98 05/03/16 20:00 Room Air Intake and Output 05/05/16 05/05/16 05/06/16 15:00 23:00 07:00 Intake Total 300 ml 1550 ml 1585 ml Balance 300 ml 1550 ml 1585 ml Exam Constitutional: alert, oriented, well developed Psych: nl mood/affect, no complaints Head: atraumatic, normocephalic Eyes: EOMI, PERRL, nl conjunctiva, nl lids ENMT: nl external ears & nose, nl lips & teeth, nl nasal mucosa & septum Neck: non-tender, supple Respiratory: clear to auscultation, normal air movement Cardiovascular: nl pulses, regular rate and rhythm Gastrointestinal: distended, soft, tender Musculoskeletal: nl extremities to inspection, nl gait and stance Extremities: normal pulses Neurological: METROLOGY TECHNICIAN II-XII intact, nl mental status, nl speech, nl strength Skin: nl turgor, rash or lesions Lymph: nl lymph nodes Results Result Diagram: 05/05/16 0554 05/06/16 0440 Results 24 hrs Laboratory Tests Test 05/06/16 04:40 05/06/16 08:50 Blood Urea Nitrogen 17 Creatinine 1.11 H Vancomycin Level Trough 23.2 *H Medications Medications Current Medications Sodium Chloride (1/2 NS) 1,000 ml @ 30 mls/hr Q24H IV Last administered on 08:46; Admin Dose 30 MLS/HR; Start 05/02/16 at 08:00 Ondansetron HCl (Zofran Inj) 4 mg Q6H PRN IV NAUSEA AND/OR VOMITING Last administered on 05/02/16 12:14; Admin Dose 4 MG; Start 05/02/16 at 07:30 Fluconazole (Diflucan) 100 mg DAILY PO Last administered on 05/06/16 09:33; Admin Dose 100 MG; Start 05/02/16 at 09:00 Folic Acid (Folic Acid) 1 mg DAILY PO Last administered on 05/06/16 09:33; Admin Dose 1 MG; Start 05/02/16 at 09:00 Furosemide (Lasix) 40 mg DAILY PO Last administered on 05/05/16 08:49; Admin Dose 40 MG; Start 05/02/16 at 09:00 Lactulose (Enulose) 20 gm Q6 PO Last administered on 05/06/16 11:52; Admin Dose 20 GM; Start 05/02/16 at 12:00 Multivitamins Therapeutic (Theragran) 1 tab DAILY PO Last administered on 09:33; Admin Dose 1 TAB; Start 05/02/16 at 09:00 Oxycodone HCl (Roxicodone) 5 mg Q4H PRN PO PAIN Last administered on 05/06/16 17:15; Admin Dose 5 MG; Start 05/02/16 at 08:00 Pantoprazole (Protonix Tab) 40 mg BID@06,18 PO Last administered on 05/06/16 06:05; Admin Dose 40 MG; Start 05/02/16 at 08:00 Spironolactone (Aldactone) 100 mg DAILY PO Last administered on 05/06/16 09:33 ; Admin Dose 100 MG; Start 05/02/16 at 09:00 Prednisolone 40 mg 40 mg DAILY PO Last administered on 05/06/16 09:35; Admin Dose 40 MG; Start 05/04/16 at 14:30; Stop 05/31/16 at 14:29 Cefepime HCl 50 ml @ 100 mls/hr Q12 IVPB Last administered on 05/06/16t 09:32 ; Admin Dose 100 MLS/HR; Start 05/04/16 at 21:00 Vancomycin HCl (Vancocin) 100 ml @ 100 mls/hr Q12H IVPB ; Start 05/07/16 at 00: 00 GLENN GILLESPIE May 06, 2016 18:37
[2016-05-06 20:29] VITALS: BP 119/72; RESP 18
[2016-05-07] MEDS: LACTULOSE 30ML CUP PO SCH ×5 (00:32→23:26)
[2016-05-07] MEDS: VANCOMYCIN 500MG/NS (PMX) 100 ML IVPB SCH ×2 (00:32→12:05)
[2016-05-07] MEDS: oxyCODONE 5 MG TAB PO PRN ×4 (01:44→22:11)
[2016-05-07] MEDS: PANTOPRAZOLE (EC) 40 MG TAB PO SCH ×2 (05:42→17:31)
[2016-05-07 06:37] LABS: POTASSIUM 3.9 mmol/L (3.5-5.1)
[2016-05-07 06:40] LABS: ALBUMIN/GLOBULIN RATIO 0.5; BILIRUBIN,DIRECT 12.5 mg/dl (0.00-0.20); BILIRUBIN,INDIRECT 2.6 mg/dl (0-1.1); BILIRUBIN,TOTAL 15.1 mg/dl (0.2-1.3); CREATININE 1.02 mg/dl (0.44-1.00); TOTAL PROTEIN 8.9 g/dl (6.1-8.1)
[2016-05-07 06:41] LABS: CALCIUM 8.9 mg/dl (8.4-10.2)
[2016-05-07 06:46] LABS: HEMOGLOBIN 10.6 g/dl (12.0-16.0); MEAN CORPUSCULAR HEMOGLOBIN 30.4 pg (29.0-33.0); MEAN CORPUSCULAR HGB CONC 34.3 g/dl (32.0-37.0); MEAN CORPUSCULAR VOLUME 88.6 fl (82.0-101.0); RED CELL DISTRIBUTION WIDTH 27.1 % (11.5-14.5); UNCORRECTED WBC 31.9 10^3/ul (4.8-10.8); WHITE BLOOD COUNT 30.3 10^3/ul (4.8-10.8)
[2016-05-07 07:20] LABS: CONDITION 1; LH ANALYZER COMMENTS 1; MEAN PLATELET VOLUME 8.8 fl (7.4-10.4); PLATELET COUNT 145 10^3/UL (140-440); SUSPECT 1
[2016-05-07 08:09] VITALS: BP 108/64; RESP 20
[2016-05-07] MEDS: MULTIVITAMINS THERAPEUTIC TAB PO SCH (08:27)
[2016-05-07] MEDS: SOD CHLORIDE 0.45% 1,000 ML IV SCH (08:27)
[2016-05-07] MEDS: FOLIC ACID 1 MG TAB PO SCH (08:28)
[2016-05-07] MEDS: SPIRONOLACTONE 50 MG TAB PO SCH (08:28)
[2016-05-07] MEDS: predniSOLONE 5 MG TAB PO SCH (08:28)
[2016-05-07] MEDS: FLUCONAZOLE 100 MG TAB PO SCH (08:28)
[2016-05-07] MEDS: FUROSEMIDE 40 MG TAB PO SCH (08:29)
[2016-05-07] MEDS: CEFEPIME 1GM/50 ML (PMX) 50 ML IVPB SCH ×2 (08:30→22:10)
[2016-05-07 10:27] LABS: LYMPHOCYTES # 1.2 10^3/ul (0.8-2.9); MONOCYTE # 1.8 10^3/ul (0.3-0.9); NEUTROPHIL # 26.4 10^3/ul (1.6-7.5)
[2016-05-07 10:28] LABS: ANISOCYTOSIS 2+; OVALOCYTES OCCASIONAL; POIKILOCYTOSIS 1+
[2016-05-07 10:29] LABS: BURR CELLS OCCASIONAL; TARGET CELLS FEW
--- NOTE | 2016-05-07 11:56 | PN ---
Date/Time of Note Date/Time of Note DATE: 05/07/16 TIME: 11:49 Assessment/Plan VTE Prophylaxis VTE Prophylaxis Intervention: SCD's Lines/Catheters IV Catheter Type (from Nrsg): Peripheral IV Urinary Cath still in place: No Assessment/Plan Assessment/Plan 1. Abd pain 2. Probable SBP: not enough fluid for paracentesis / abx per ID 3. Ecoli UTI 4. End stage alcoholic cirrhosis 5. Hyperbilirubinemia, coagulopathy 2/2 #4 6. Continued Alcohol abuse 7. Steroid induced Leucocytosis 8, Severe [place] esophagitis on last EGD: diflucan 9. Gram - eleuterio / [place] Pneumonia: likely from aspiration Dispo f/u final cultures consider d/c steroids as patient has chronic transaminitis from chronic cirrhosis without significant worsening / hyperbilirubinemia has slowly been worsening over months as well D/c planning to commence once WBC (which is likely steroid induced) starts to trend down. Will d/w GI Alcohol cessation counselling done and will continue to be reinforced throughout hospitalization. Cont current abx per ID Poor prognosis Patient is to f/u at [facility] transplant center post d/c Subjective 24 Hr Interval Summary Free Text/Dictation Patient seen and examined. no new complaints ambulating in hallway with IV pole Exam/Review of Systems Vital Signs Vitals Vital Signs Date Time Temp Pulse Resp B/P Pulse Ox O2 Delivery O2 Flow Rate FiO2 05/07/16 08:09 98.6 85 20 108/64 95 05/03/16 20:00 Room Air Intake and Output 05/06/16 05/06/16 05/07/16 15:00 23:00 07:00 Intake Total 50 ml 1455 ml 1515 ml Balance 50 ml 1455 ml 1515 ml Exam Constitutional: alert, oriented Eyes: icteric (+++) Respiratory: diminished breath sounds Cardiovascular: regular rate and rhythm, No murmurs/extra sounds Gastrointestinal: bowel sounds, distended, soft Extremities: edema Neurological: nl mental status, nl speech Results Result Diagram: 05/07/1652505/07/16525 Results 24 hrs Laboratory Tests Test 05/07/16 05:26 Alanine Aminotransferase (ALT/SGPT) 39 Albumin 3.0 L Albumin/Globulin Ratio 0.50 Alkaline Phosphatase 322 H Anion Gap 20 H Anisocytosis 2+ Aspartate Amino Transf (AST/SGOT) 94 H Band Neutrophils % 3.0 Blood Morphology Comment Blood Urea Nitrogen 19 Calcium Level 8.9 Carbon Dioxide Level 24 Chloride Level 103 Creatinine 1.02 H Direct Bilirubin 12.50 H Globulin 5.90 H Glucose Level 127 Hematocrit 31.0 L Hemoglobin 10.6 L Indirect Bilirubin 2.6 H Lymphocytes # 1.2 Lymphocytes % 4.0 L Mean Corpuscular Hemoglobin 30.4 Mean Corpuscular Hemoglobin Concent 34.3 Mean Corpuscular Volume 88.6 Mean Platelet Volume 8.8 Monocytes # 1.8 H Monocytes % 6.0 Neutrophils # 26.4 H Neutrophils % 87.0 H Ovalocytes OCCASIONAL Platelet Count 145 # Potassium Level 3.9 Red Blood Count 3.50 L Red Cell Distribution Width 27.1 H Sodium Level 143 Target Cells FEW Total Bilirubin 15.1 *H Total Protein 8.9 H White Blood Count 30.3 #H Medications Medications Current Medications Sodium Chloride (1/2 NS) 1,000 ml @ 30 mls/hr Q24H IV Last administered on 08:27; Admin Dose 30 MLS/HR; Start 05/02/16 at 08:00 Ondansetron HCl (Zofran Inj) 4 mg Q6H PRN IV NAUSEA AND/OR VOMITING Last administered on 05/02/16 12:14; Admin Dose 4 MG; Start 05/02/16 at 07:30 Fluconazole (Diflucan) 100 mg DAILY PO Last administered on 05/07/16 08:28; Admin Dose 100 MG; Start 05/02/16 at 09:00 Folic Acid (Folic Acid) 1 mg DAILY PO Last administered on 05/07/16 08:28; Admin Dose 1 MG; Start 05/02/16 at 09:00 Furosemide (Lasix) 40 mg DAILY PO Last administered on 05/07/16 08:29; Admin Dose 40 MG; Start 05/02/16 at 09:00 Lactulose (Enulose) 20 gm Q6 PO Last administered on 05/07/16 05:42; Admin Dose 20 GM; Start 05/02/16 at 12:00 Multivitamins Therapeutic (Theragran) 1 tab DAILY PO Last administered on 08:27; Admin Dose 1 TAB; Start 05/02/16 at 09:00 Oxycodone HCl (Roxicodone) 5 mg Q4H PRN PO PAIN Last administered on 05/07/16 01:44; Admin Dose 5 MG; Start 05/02/16 at 08:00 Pantoprazole (Protonix Tab) 40 mg BID@06,18 PO Last administered on 05/07/16 05:42; Admin Dose 40 MG; Start 05/02/16 at 08:00 Spironolactone (Aldactone) 100 mg DAILY PO Last administered on 05/07/16 08:28 ; Admin Dose 100 MG; Start 05/02/16 at 09:00 Prednisolone 40 mg 40 mg DAILY PO Last administered on 05/07/16 08:28; Admin Dose 40 MG; Start 05/04/16 at 14:30; Stop 05/31/16 at 14:29 Cefepime HCl 50 ml @ 100 mls/hr Q12 IVPB Last administered on 05/07/16 08:30 ; Admin Dose 100 MLS/HR; Start 05/04/16 at 21:00 Vancomycin HCl (Vancocin) 100 ml @ 100 mls/hr Q12H IVPB Last administered on 00:32; Admin Dose 100 MLS/HR; Start 05/07/16 at 00:00 VINCENT BECERRIL May 07, 2016 11:56
--- NOTE | 2016-05-07 13:22 | CONS ---
Date/Time of Note Date/Time of Note DATE: 05/07/16 TIME: 13:18 Assessment/Plan Assessment/Plan Chief Complaint/Hosp Course Impression: 1. alcoholic hepatitis 2. alcoholic cirrhosis 3. Ascites 4. Coagulopathy secondary to alcoholic cirrhosis 5. Leukocytosis: likely secondary to steroid Plan: 1. ok to stop steroid as it is likely causing leukocytosis and alcoholic hepatitis is chronic 2. Continue diureses 3. if e/o overt GIB, then EGD to r/o varices and banding if needed. 4. Alcohol cessation counselling done 5. Cont current abx per ID 6. f/u at [facility] for liver transplant Problems: Consultation Date/Type/Reason Admit Date/Time May 02, 2016 at 02:18 Initial Consult Date Type of Consultation: GI 24 HR Interval Summary Free Text/Dictation awake, sitting, no n/v, jaundiced Exam/Review of Systems Vital Signs Vitals Vital Signs Date Time Temp Pulse Resp B/P Pulse Ox O2 Delivery O2 Flow Rate FiO2 05/07/16 08:09 98.6 85 20 108/64 95 05/03/16 20:00 Room Air Intake and Output 05/06/16 05/06/16 05/07/16 15:00 23:00 07:00 Intake Total 50 ml 1455 ml 1515 ml Balance 50 ml 1455 ml 1515 ml Exam Constitutional: alert, oriented, well developed Psych: nl mood/affect, no complaints Head: atraumatic, normocephalic Eyes: EOMI, icteric ENMT: mucosa pink and moist, nl external ears & nose, nl lips & teeth, nl nasal mucosa & septum Neck: non-tender, supple Respiratory: clear to auscultation, normal air movement Cardiovascular: nl pulses, regular rate and rhythm Gastrointestinal: bowel sounds, distended, non-tender, soft Results Result Diagram: 05/07/16 0526 05/07/16525 Results 24 hrs Laboratory Tests Test 05/07/16 05:26 Alanine Aminotransferase (ALT/SGPT) 39 Albumin 3.0 L Albumin/Globulin Ratio 0.50 Alkaline Phosphatase 322 H Anion Gap 20 H Anisocytosis 2+ Aspartate Amino Transf (AST/SGOT) 94 H Band Neutrophils % 3.0 Blood Morphology Comment Blood Urea Nitrogen 19 Calcium Level 8.9 Carbon Dioxide Level 24 Chloride Level 103 Creatinine 1.02 H Direct Bilirubin 12.50 H Globulin 5.90 H Glucose Level 127 Hematocrit 31.0 L Hemoglobin 10.6 L Indirect Bilirubin 2.6 H Lymphocytes # 1.2 Lymphocytes % 4.0 L Mean Corpuscular Hemoglobin 30.4 Mean Corpuscular Hemoglobin Concent 34.3 Mean Corpuscular Volume 88.6 Mean Platelet Volume 8.8 Monocytes # 1.8 H Monocytes % 6.0 Neutrophils # 26.4 H Neutrophils % 87.0 H Ovalocytes OCCASIONAL Platelet Count 145 # Potassium Level 3.9 Red Blood Count 3.50 L Red Cell Distribution Width 27.1 H Sodium Level 143 Target Cells FEW Total Bilirubin 15.1 *H Total Protein 8.9 H White Blood Count 30.3 #H Medications Medications Current Medications Sodium Chloride (1/2 NS) 1,000 ml @ 30 mls/hr Q24H IV Last administered on 08:27; Admin Dose 30 MLS/HR; Start 05/02/16 at 08:00 Ondansetron HCl (Zofran Inj) 4 mg Q6H PRN IV NAUSEA AND/OR VOMITING Last administered on 05/02/16 12:14; Admin Dose 4 MG; Start 05/02/16 at 07:30 Fluconazole (Diflucan) 100 mg DAILY PO Last administered on 05/07/16 08:28; Admin Dose 100 MG; Start 05/02/16 at 09:00 Folic Acid (Folic Acid) 1 mg DAILY PO Last administered on 05/07/16 08:28; Admin Dose 1 MG; Start 05/02/16 at 09:00 Furosemide (Lasix) 40 mg DAILY PO Last administered on 05/07/16 08:29; Admin Dose 40 MG; Start 05/02/16 at 09:00 Lactulose (Enulose) 20 gm Q6 PO Last administered on 05/07/16 12:05; Admin Dose 20 GM; Start 05/02/16 at 12:00 Multivitamins Therapeutic (Theragran) 1 tab DAILY PO Last administered on 08:27; Admin Dose 1 TAB; Start 05/02/16 at 09:00 Oxycodone HCl (Roxicodone) 5 mg Q4H PRN PO PAIN Last administered on 05/07/16 12:13; Admin Dose 5 MG; Start 05/02/16 at 08:00 Pantoprazole (Protonix Tab) 40 mg BID@06,18 PO Last administered on 05/07/16 05:42; Admin Dose 40 MG; Start 05/02/16 at 08:00 Spironolactone (Aldactone) 100 mg DAILY PO Last administered on 05/07/16 08:28 ; Admin Dose 100 MG; Start 05/02/16 at 09:00 Prednisolone 40 mg 40 mg DAILY PO Last administered on 05/07/16 08:28; Admin Dose 40 MG; Start 05/04/16 at 14:30; Stop 05/31/16 at 14:29 Cefepime HCl 50 ml @ 100 mls/hr Q12 IVPB Last administered on 05/07/16 08:30 ; Admin Dose 100 MLS/HR; Start 05/04/16 at 21:00 Vancomycin HCl (Vancocin) 100 ml @ 100 mls/hr Q12H IVPB Last administered on 12:05; Admin Dose 100 MLS/HR; Start 05/07/16 at 00:00 MILADIS TELLEZ MD May 07, 2016 13:22
--- NOTE | 2016-05-07 17:02 | CONS ---
Date/Time of Note Date/Time of Note DATE: 05/07/16 TIME: 17:01 Assessment/Plan Assessment/Plan Chief Complaint/Hosp Course ID PROGRESS NOTE TOTAL ABX DAY # => Vanco IV, Cefepime, Diflucan 24H INTERVAL SUMMARY * A/A/O -- complains of worsening BLEXT edema, still has morning productive phlegm w/cough * No fevers * CXR: FINDINGS:There is a moderate right pleural effusion, unchanged. There is associated atelectasis or pneumonia throughout the right mid and lower lung zones, also unchanged. There is mild left basilar atelectasis. The left lung is otherwise clear. * 05/05/16 SPUTUM: RESPIRATORY CULTURE Preliminary Organism 1 TODD ALBICANS QUANTITY 1+ Organism 2 GRAM NEGATIVE ROSS QUANTITY SCANT GROWTH PHYSICAL EXAMINATION: GENERAL: 30 yo F HEENT: (+)Icteric, jaundice NECK: Supple, trachea midline. CHEST: Rise symmetrical without dyspnea HEART: RRR ABDOMEN: Soft, mild distended EXTREMITIES: Warm w/BLEXT edema R > L ID ASSESSMENT: 30 yo F w/PMHx ETOH abuse admit with: 1. Systemic inflammatory response syndrome with persistent leukocytosis, possibly secondary to Escherichia coli urinary tract infection versus questionable spontaneous bacterial peritonitis versus reactive. 2. Escherichia coli urinary tract infection. 3. Alcoholic cirrhosis with ascites, jaundice, coagulopathy 4. Anasarca w/pulmonary edema/BLEXT edema 5. Right pleural effusion w/Right side ATx vs PNA 6. Anemia with thrombocytopenia. INVASIVES: *PIV CURRENT ABX: # => Vanco IV, Cefepime, Diflucan s/p ID RECOMMENDATIONS: CONTINUE Current ABX => Taper to PO per GNR sputum results still pending DC Vanco IV . Problems: Consultation Date/Type/Reason Admit Date/Time May 02, 2016 at 02:18 Initial Consult Date Type of Consultation: ID Exam/Review of Systems Vital Signs Vitals Vital Signs Date Time Temp Pulse Resp B/P Pulse Ox O2 Delivery O2 Flow Rate FiO2 05/07/16 08:09 98.6 85 20 108/64 95 05/03/16 20:00 Room Air Intake and Output 05/06/16 05/06/16 05/07/16 15:00 23:00 07:00 Intake Total 50 ml 1455 ml 1515 ml Balance 50 ml 1455 ml 1515 ml Results Result Diagram: 05/07/16 0526 05/07/16 0526 Results 24 hrs Laboratory Tests Test 05/07/16 05:26 Alanine Aminotransferase (ALT/SGPT) 39 Albumin 3.0 L Albumin/Globulin Ratio 0.50 Alkaline Phosphatase 322 H Anion Gap 20 H Anisocytosis 2+ Aspartate Amino Transf (AST/SGOT) 94 H Band Neutrophils % 3.0 Blood Morphology Comment Blood Urea Nitrogen 19 Calcium Level 8.9 Carbon Dioxide Level 24 Chloride Level 103 Creatinine 1.02 H Direct Bilirubin 12.50 H Globulin 5.90 H Glucose Level 127 Hematocrit 31.0 L Hemoglobin 10.6 L Indirect Bilirubin 2.6 H Lymphocytes # 1.2 Lymphocytes % 4.0 L Mean Corpuscular Hemoglobin 30.4 Mean Corpuscular Hemoglobin Concent 34.3 Mean Corpuscular Volume 88.6 Mean Platelet Volume 8.8 Monocytes # 1.8 H Monocytes % 6.0 Neutrophils # 26.4 H Neutrophils % 87.0 H Ovalocytes OCCASIONAL Platelet Count 145 # Potassium Level 3.9 Red Blood Count 3.50 L Red Cell Distribution Width 27.1 H Sodium Level 143 Target Cells FEW Total Bilirubin 15.1 *H Total Protein 8.9 H White Blood Count 30.3 #H Medications Medications Current Medications Sodium Chloride (1/2 NS) 1,000 ml @ 30 mls/hr Q24H IV Last administered on 08:27; Admin Dose 30 MLS/HR; Start 05/02/16 at 08:00 Ondansetron HCl (Zofran Inj) 4 mg Q6H PRN IV NAUSEA AND/OR VOMITING Last administered on 05/02/16 12:14; Admin Dose 4 MG; Start 05/02/16 at 07:30 Fluconazole (Diflucan) 100 mg DAILY PO Last administered on 05/07/16 08:28; Admin Dose 100 MG; Start 05/02/16 at 09:00 Folic Acid (Folic Acid) 1 mg DAILY PO Last administered on 05/07/16 08:28; Admin Dose 1 MG; Start 05/02/16 at 09:00 Furosemide (Lasix) 40 mg DAILY PO Last administered on 05/07/16 08:29; Admin Dose 40 MG; Start 05/02/16 at 09:00 Lactulose (Enulose) 20 gm Q6 PO Last administered on 05/07/16 12:05; Admin Dose 20 GM; Start 05/02/16 at 12:00 Multivitamins Therapeutic (Theragran) 1 tab DAILY PO Last administered on 08:27; Admin Dose 1 TAB; Start 05/02/16 at 09:00 Oxycodone HCl (Roxicodone) 5 mg Q4H PRN PO PAIN Last administered on 05/07/16 12:13; Admin Dose 5 MG; Start 05/02/16 at 08:00 Pantoprazole (Protonix Tab) 40 mg BID@06,18 PO Last administered on 05/07/16 05:42; Admin Dose 40 MG; Start 05/02/16 at 08:00 Spironolactone (Aldactone) 100 mg DAILY PO Last administered on 05/07/16 08:28 ; Admin Dose 100 MG; Start 05/02/16 at 09:00 Prednisolone 40 mg 40 mg DAILY PO Last administered on 05/07/16 08:28; Admin Dose 40 MG; Start 05/04/16 at 14:30; Stop 05/31/16 at 14:29 Cefepime HCl 50 ml @ 100 mls/hr Q12 IVPB Last administered on 05/07/16 08:30 ; Admin Dose 100 MLS/HR; Start 05/04/16 at 21:00 Vancomycin HCl (Vancocin) 100 ml @ 100 mls/hr Q12H IVPB Last administered on 12:05; Admin Dose 100 MLS/HR; Start 05/07/16 at 00:00 CIRO GARCIA NP May 07, 2016 17:02
[2016-05-07 21:04] VITALS: BP 119/59; RESP 20
[2016-05-08] MEDS: PANTOPRAZOLE (EC) 40 MG TAB PO SCH ×2 (05:26→17:27)
[2016-05-08] MEDS: LACTULOSE 30ML CUP PO SCH ×4 (05:26→23:40)
[2016-05-08] MEDS: oxyCODONE 5 MG TAB PO PRN ×4 (06:04→23:46)
[2016-05-08 07:54] VITALS: BP 117/68; RESP 20
[2016-05-08] MEDS: SOD CHLORIDE 0.45% 1,000 ML IV SCH ×2 (08:00→23:40)
[2016-05-08] MEDS: CEFEPIME 1GM/50 ML (PMX) 50 ML IVPB SCH ×2 (08:46→21:00)
[2016-05-08] MEDS: MULTIVITAMINS THERAPEUTIC TAB PO SCH (08:47)
[2016-05-08] MEDS: SPIRONOLACTONE 50 MG TAB PO SCH (08:47)
[2016-05-08] MEDS: FLUCONAZOLE 100 MG TAB PO SCH (08:47)
[2016-05-08] MEDS: FOLIC ACID 1 MG TAB PO SCH (08:47)
[2016-05-08] MEDS: predniSOLONE 5 MG TAB PO SCH (08:47)
[2016-05-08] MEDS: FUROSEMIDE 40 MG TAB PO SCH (08:49)
--- NOTE | 2016-05-08 09:03 | CONS ---
Date/Time of Note Date/Time of Note DATE: 05/08/16 TIME: 09:00 Assessment/Plan Assessment/Plan Chief Complaint/Hosp Course Impression: 1. alcoholic hepatitis 2. alcoholic cirrhosis 3. Ascites 4. Coagulopathy secondary to alcoholic cirrhosis 5. Leukocytosis: likely secondary to steroid Plan: 1. No steroid since patient do not have alcoholic hepatitis at this time. She has been abstinent from alcohol. 2. Continue diureses 3. if e/o overt GIB, then EGD to r/o varices and banding if needed. 4. Alcohol cessation counselling done 5. Cont current abx per ID 6. f/u at [facility] for liver transplant Problems: Consultation Date/Type/Reason Admit Date/Time May 02, 2016 at 02:18 Type of Consultation: GI 24 HR Interval Summary Free Text/Dictation ambulating. No abdominal pain. No n/v. Constitutional: improved Exam/Review of Systems Vital Signs Vitals Vital Signs Date Time Temp Pulse Resp B/P Pulse Ox O2 Delivery O2 Flow Rate FiO2 05/08/16 07:54 98.5 84 20 117/68 98 Intake and Output 05/07/16 05/07/16 05/08/16 15:00 23:00 07:00 Intake Total 150 ml 1400 ml 1170 ml Balance 150 ml 1400 ml 1170 ml Exam Constitutional: alert, oriented, well developed Psych: nl mood/affect, no complaints Head: atraumatic, normocephalic Eyes: EOMI, icteric ENMT: mucosa pink and moist, nl external ears & nose, nl lips & teeth, nl nasal mucosa & septum Neck: non-tender, supple Respiratory: clear to auscultation, normal air movement Cardiovascular: nl pulses, regular rate and rhythm Gastrointestinal: bowel sounds, distended, non-tender, soft Results Result Diagram: 05/07/16 0526 05/07/16 0526 Medications Medications Current Medications Sodium Chloride (1/2 NS) 1,000 ml @ 30 mls/hr Q24H IV Last administered on 08:27; Admin Dose 30 MLS/HR; Start 05/02/16 at 08:00 Ondansetron HCl (Zofran Inj) 4 mg Q6H PRN IV NAUSEA AND/OR VOMITING Last administered on 05/02/16 12:14; Admin Dose 4 MG; Start 05/02/16 at 07:30 Fluconazole (Diflucan) 100 mg DAILY PO Last administered on 05/08/16 08:47; Admin Dose 100 MG; Start 05/02/16 at 09:00 Folic Acid (Folic Acid) 1 mg DAILY PO Last administered on 05/08/16 08:47; Admin Dose 1 MG; Start 05/02/16 at 09:00 Furosemide (Lasix) 40 mg DAILY PO Last administered on 05/08/16 08:49; Admin Dose 40 MG; Start 05/02/16 at 09:00 Lactulose (Enulose) 20 gm Q6 PO Last administered on 05/08/16 05:26; Admin Dose 20 GM; Start 05/02/16 at 12:00 Multivitamins Therapeutic (Theragran) 1 tab DAILY PO Last administered on 08:47; Admin Dose 1 TAB; Start 05/02/16 at 09:00 Oxycodone HCl (Roxicodone) 5 mg Q4H PRN PO PAIN Last administered on 05/08/16 06:04; Admin Dose 5 MG; Start 05/02/16 at 08:00 Pantoprazole (Protonix Tab) 40 mg BID@06,18 PO Last administered on 05/08/16 05:26; Admin Dose 40 MG; Start 05/02/16 at 08:00 Spironolactone (Aldactone) 100 mg DAILY PO Last administered on 05/08/16 08:47 ; Admin Dose 100 MG; Start 05/02/16 at 09:00 Prednisolone 40 mg 40 mg DAILY PO Last administered on 05/08/16 08:47; Admin Dose 40 MG; Start 05/04/16 at 14:30; Stop 05/31/16 at 14:29 Cefepime HCl (Maxipime 1gm/50 ml (Pmx)) 50 ml @ 100 mls/hr Q12 IVPB Last administered on 05/08/16 08:46; Admin Dose 100 MLS/HR; Start 05/04/16 at 21:00 Miscellaneous Information (*Rx Drug Level Order Reminder*) VANCO TROUGH @ 1, 100 ON... ONCE ONCE XX ; Start 05/08/16 at 11:00; Stop 05/08/16 at 11:01 MILADIS TELLEZ MD May 08, 2016 09:03
--- NOTE | 2016-05-08 11:41 | PN ---
Date/Time of Note Date/Time of Note DATE: 05/08/16 TIME: 11:37 Assessment/Plan VTE Prophylaxis VTE Prophylaxis Intervention: ambulation VTE Contraindication Reason: anticoagulation not tolerated Lines/Catheters IV Catheter Type (from Nrsg): Peripheral IV Urinary Cath still in place: No Assessment/Plan Assessment/Plan 1. Abd pain 2. Probable SBP: not enough fluid for paracentesis / abx per ID 3. Ecoli UTI 4. End stage alcoholic cirrhosis with chronic alcoholic hepatitis 5. Hyperbilirubinemia, coagulopathy 2/2 #4 6. Continued Alcohol abuse 7. Steroid induced Leucocytosis 8, Severe [place] esophagitis on last EGD: diflucan 9. Gram - eleuterio / [place] Pneumonia: likely from aspiration Dispo f/u final cultures Steroids d/c as patient has chronic transaminitis from chronic cirrhosis without significant worsening / hyperbilirubinemia has slowly been worsening over months as well D/c planning to commence once WBC (which is likely steroid induced) starts to trend down and final ID from resp cultures obtained Alcohol cessation counselling done and will continue to be reinforced throughout hospitalization. Cont current abx per ID Poor prognosis Patient is to f/u at [facility] transplant center post d Subjective 24 Hr Interval Summary Free Text/Dictation Patient seen and examined. remains stable, ambulating in hallway Exam/Review of Systems Vital Signs Vitals Vital Signs Date Time Temp Pulse Resp B/P Pulse Ox O2 Delivery O2 Flow Rate FiO2 05/08/16 07:54 98.5 84 20 117/68 98 Intake and Output 05/07/16 05/07/16 05/08/16 15:00 23:00 07:00 Intake Total 150 ml 1400 ml 1170 ml Balance 150 ml 1400 ml 1170 ml Exam Constitutional: alert, oriented Eyes: icteric (+++) Respiratory: diminished breath sounds Cardiovascular: regular rate and rhythm, No murmurs/extra sounds Gastrointestinal: bowel sounds, distended, soft Extremities: edema Neurological: nl mental status, nl speech Results Result Diagram: 05/07/1652505/07/16525 Medications Medications Current Medications Sodium Chloride (1/2 NS) 1,000 ml @ 30 mls/hr Q24H IV Last administered on t 08:27; Admin Dose 30 MLS/HR; Start 05/02/16 at 08:00 Ondansetron HCl (Zofran Inj) 4 mg Q6H PRN IV NAUSEA AND/OR VOMITING Last administered on 05/02/16 12:14; Admin Dose 4 MG; Start 05/02/16 at 07:30 Fluconazole (Diflucan) 100 mg DAILY PO Last administered on 05/08/16 08:47; Admin Dose 100 MG; Start 05/02/16 at 09:00 Folic Acid (Folic Acid) 1 mg DAILY PO Last administered on 05/08/16 08:47; Admin Dose 1 MG; Start 05/02/16 at 09:00 Furosemide (Lasix) 40 mg DAILY PO Last administered on 05/08/16 08:49; Admin Dose 40 MG; Start 05/02/16 at 09:00 Lactulose (Enulose) 20 gm Q6 PO Last administered on 05/08/16 05:26; Admin Dose 20 GM; Start 05/02/16 at 12:00 Multivitamins Therapeutic (Theragran) 1 tab DAILY PO Last administered on 08:47; Admin Dose 1 TAB; Start 05/02/16 at 09:00 Oxycodone HCl (Roxicodone) 5 mg Q4H PRN PO PAIN Last administered on 05/08/16 06:04; Admin Dose 5 MG; Start 05/02/16 at 08:00 Pantoprazole (Protonix Tab) 40 mg BID@06,18 PO Last administered on 05/08/16 05:26; Admin Dose 40 MG; Start 05/02/16 at 08:00 Spironolactone (Aldactone) 100 mg DAILY PO Last administered on 05/08/16 08:47 ; Admin Dose 100 MG; Start 05/02/16 at 09:00 Prednisolone 40 mg 40 mg DAILY PO Last administered on 05/08/16 08:47; Admin Dose 40 MG; Start 05/04/16 at 14:30; Stop 05/31/16 at 14:29 Cefepime HCl (Maxipime 1gm/50 ml (Pmx)) 50 ml @ 100 mls/hr Q12 IVPB Last administered on 05/08/16 08:46; Admin Dose 100 MLS/HR; Start 05/04/16 at 21:00 VINCENT BECERRIL May 08, 2016 11:40
--- NOTE | 2016-05-08 16:42 | CONS ---
Date/Time of Note Date/Time of Note DATE: 05/08/16 TIME: 16:31 Assessment/Plan Assessment/Plan Chief Complaint/Hosp Course ID PROGRESS NOTE TOTAL ABX DAY #7 => Cefepime, Diflucan s/p Vanco IV-> DC'd 05/07 24H INTERVAL SUMMARY * She feels much better today -- she wore the YESENIA hose for many hours today which was effective in treating the BLEXT Edema -- her legs are much improved * Stable, w/anasarca on steroids taper, still has morning productive phlegm w/ cough * No fevers * CXR: FINDINGS:There is a moderate right pleural effusion, unchanged. There is associated atelectasis or pneumonia throughout the right mid and lower lung zones, also unchanged. There is mild left basilar atelectasis. The left lung is otherwise clear. * 05/05/16 SPUTUM: RESPIRATORY CULTURE Lou: 05/05/16-1200 Rcvd: 05/05/16- 1535 Microbiology GRAM STAIN Final POLYMORPH. LEUKOCYTE 1+ EPITHELIAL CELLS 1+ GRAM NEGATIVE RODS 1+ BUDDING YEAST 2+ RESPIRATORY CULTURE Preliminary Organism 1 JOSEF ALBICANS QUANTITY 1+ Organism 2 GRAM NEGATIVE ROSS QUANTITY SCANT GROWTH Organism 3 GRAM NEGATIVE ROSS#2 QUANTITY SCANT GROWTH PHYSICAL EXAMINATION: GENERAL: 30 yo F HEENT: (+)Icteric, jaundice NECK: Supple, trachea midline. CHEST: Rise symmetrical without dyspnea HEART: RRR ABDOMEN: Soft, mild distended EXTREMITIES: Warm w/BLEXT edema R > L ID ASSESSMENT: 30 yo F w/PMHx ETOH abuse admit with: 1. SIRS w/persistent leukocytosis = #1 #2 + partial IV->PO steroids demargination 2. Resolving Escherichia coli urinary tract infection. 3. Presumptive SBP always Dx in setting hepatic portal HTN, ascites, esophageal varices 4. Alcoholic cirrhosis with ascites, jaundice, coagulopathy/,anasarca w/ pulmonary edema/BLEXT edema 5. Right pleural effusion w/Right side ATx vs PNA * There is associated atelectasis or pneumonia throughout the right mid and lower lung zones, also unchanged. 6. Severe josef esophagitis on prior EGD - sputum w/(+)Budding yeast 7. Anemia with thrombocytopenia. INVASIVES: *PIV CURRENT ABX: #7 => Cefepime, Diflucan s/p Vanco IV ID RECOMMENDATIONS: CONTINUE Current ABX => Taper to PO per GNR sputum results still pending = Anticipate DC home on PO ABX Levaquin 500mg daily + Diflucan 100mg PO daily Oral Nystatin swallow QID will help w/treatment of esophageal candidiasis . Problems: Consultation Date/Type/Reason Admit Date/Time May 02, 2016 at 02:18 Type of Consultation: ID Exam/Review of Systems Vital Signs Vitals Vital Signs Date Time Temp Pulse Resp B/P Pulse Ox O2 Delivery O2 Flow Rate FiO2 05/08/16 07:54 98.5 84 20 117/68 98 Intake and Output 05/07/16 05/07/16 05/08/16 15:00 23:00 07:00 Intake Total 150 ml 1400 ml 1170 ml Balance 150 ml 1400 ml 1170 ml Results Result Diagram: 05/07/1652505/07/16525 Results 24 hrs Laboratory Tests Test 05/08/16 11:05 Vancomycin Level Trough 8.4 L Medications Medications Current Medications Sodium Chloride (1/2 NS) 1,000 ml @ 30 mls/hr Q24H IV Last administered on 08:27; Admin Dose 30 MLS/HR; Start 05/02/16 at 08:00 Ondansetron HCl (Zofran Inj) 4 mg Q6H PRN IV NAUSEA AND/OR VOMITING Last administered on 05/02/16 12:14; Admin Dose 4 MG; Start 05/02/16 at 07:30 Fluconazole (Diflucan) 100 mg DAILY PO Last administered on 05/08/16 08:47; Admin Dose 100 MG; Start 05/02/16 at 09:00 Folic Acid (Folic Acid) 1 mg DAILY PO Last administered on 05/08/16 08:47; Admin Dose 1 MG; Start 05/02/16 at 09:00 Furosemide (Lasix) 40 mg DAILY PO Last administered on 05/08/16 08:49; Admin Dose 40 MG; Start 05/02/16 at 09:00 Lactulose (Enulose) 20 gm Q6 PO Last administered on 05/08/16 12:17; Admin Dose 20 GM; Start 05/02/16 at 12:00 Multivitamins Therapeutic (Theragran) 1 tab DAILY PO Last administered on 08:47; Admin Dose 1 TAB; Start 05/02/16 at 09:00 Oxycodone HCl (Roxicodone) 5 mg Q4H PRN PO PAIN Last administered on 05/08/16 12:22; Admin Dose 5 MG; Start 05/02/16 at 08:00 Pantoprazole (Protonix Tab) 40 mg BID@06,18 PO Last administered on 05/08/16 05:26; Admin Dose 40 MG; Start 05/02/16 at 08:00 Spironolactone (Aldactone) 100 mg DAILY PO Last administered on 05/08/16 08:47 ; Admin Dose 100 MG; Start 05/02/16 at 09:00 Prednisolone 40 mg 40 mg DAILY PO Last administered on 05/08/16 08:47; Admin Dose 40 MG; Start 05/04/16 at 14:30; Stop 05/31/16 at 14:29 Cefepime HCl (Maxipime 1gm/50 ml (Pmx)) 50 ml @ 100 mls/hr Q12 IVPB Last administered on 05/08/16 08:46; Admin Dose 100 MLS/HR; Start 05/04/16 at 21:00 CIRO GARCIA NP May 08, 2016 16:42
[2016-05-08] MEDS: NYSTATIN SUSP 5 ML CUP PO SCH ×2 (17:27→21:00)
[2016-05-08 19:51] VITALS: BP 109/56; RESP 18
[2016-05-09 05:10] LABS: HEMATOCRIT 25.7 % (37.0-47.0); HEMOGLOBIN 8.8 g/dl (12.0-16.0); MEAN CORPUSCULAR HEMOGLOBIN 30.6 pg (29.0-33.0); MEAN CORPUSCULAR HGB CONC 34.2 g/dl (32.0-37.0); MEAN CORPUSCULAR VOLUME 89.6 fl (82.0-101.0); RED BLOOD COUNT 2.87 10^6/ul (4.20-5.40); RED CELL DISTRIBUTION WIDTH 27.7 % (11.5-14.5); UNCORRECTED WBC 23.4 10^3/ul (4.8-10.8); WHITE BLOOD COUNT 23.4 10^3/ul (4.8-10.8)
[2016-05-09 05:16] LABS: CONDITION 1; LH ANALYZER COMMENTS 1; MEAN PLATELET VOLUME 8.8 fl (7.4-10.4); PLATELET COUNT 104 10^3/UL (140-440); SUSPECT 1
[2016-05-09 05:30] LABS: ALBUMIN 2.3 g/dl (3.3-4.9); POTASSIUM 4.4 mmol/L (3.5-5.1)
[2016-05-09 05:32] LABS: BILIRUBIN,INDIRECT 2.2 mg/dl (0-1.1); BILIRUBIN,TOTAL 8.2 mg/dl (0.2-1.3)
[2016-05-09 05:33] LABS: ALBUMIN/GLOBULIN RATIO 0.5; CALCIUM 8.5 mg/dl (8.4-10.2); TOTAL PROTEIN 6.9 g/dl (6.1-8.1)
[2016-05-09] MEDS: LACTULOSE 30ML CUP PO SCH ×3 (05:52→17:10)
[2016-05-09] MEDS: PANTOPRAZOLE (EC) 40 MG TAB PO SCH ×2 (05:52→17:10)
[2016-05-09] MEDS: oxyCODONE 5 MG TAB PO PRN ×2 (06:15→13:04)
--- NOTE | 2016-05-09 07:15 | CONS ---
Date/Time of Note Date/Time of Note DATE: 05/09/16 TIME: 07:13 Assessment/Plan Assessment/Plan Chief Complaint/Hosp Course Impression: 1. alcoholic hepatitis: improving bili and transaminases. 2. alcoholic cirrhosis: no EtOH intake now, f/b liver transplant at [facility] 3. Ascites 4. Coagulopathy secondary to alcoholic cirrhosis 5. Leukocytosis: likely secondary to steroid, improved after prednisone stopped. Plan: 1. No steroid since patient do not have alcoholic hepatitis at this time. She has been abstinent from alcohol. 2. Continue diureses 3. if e/o overt GIB, then EGD to r/o varices and banding if needed. 4. Alcohol cessation counselling done 5. Cont current abx per ID 6. f/u at [facility] for liver transplant 7. Dr. Gray to resume care of this patient tomorrow. Problems: Consultation Date/Type/Reason Admit Date/Time May 02, 2016 at 02:18 Type of Consultation: GI 24 HR Interval Summary Free Text/Dictation sleepy but arousable Constitutional: improved Exam/Review of Systems Vital Signs Vitals Vital Signs Date Time Temp Pulse Resp B/P Pulse Ox O2 Delivery O2 Flow Rate FiO2 05/08/16 19:51 98.1 81 18 109/56 95 Intake and Output 05/08/16 05/08/16 05/09/16 15:00 23:00 07:00 Intake Total 100 ml 1950 ml 600 ml Balance 100 ml 1950 ml 600 ml Exam Psych: nl mood/affect, no complaints Head: atraumatic, normocephalic Eyes: EOMI, PERRL, icteric ENMT: mucosa pink and moist, nl external ears & nose, nl lips & teeth, nl nasal mucosa & septum Neck: non-tender, supple Respiratory: clear to auscultation, normal air movement Cardiovascular: nl pulses, regular rate and rhythm Gastrointestinal: bowel sounds, distended, non-tender, soft Results Result Diagram: 05/09/167 05/09/16426 Results 24 hrs Laboratory Tests Test 05/08/16 11:05 05/09/16 04:27 Vancomycin Level Trough 8.4 L Alanine Aminotransferase (ALT/SGPT) 35 Albumin 2.3 L Albumin/Globulin Ratio 0.50 Alkaline Phosphatase 248 H Anion Gap 17 H Aspartate Amino Transf (AST/SGOT) 73 H Blood Morphology Comment Blood Urea Nitrogen 23 H Calcium Level 8.5 Carbon Dioxide Level 22 Chloride Level 108 Creatinine 1.00 Direct Bilirubin 6.00 #H Globulin 4.60 H Glucose Level 130 Hematocrit 25.7 L Hemoglobin 8.8 L Indirect Bilirubin 2.2 H Mean Corpuscular Hemoglobin 30.6 Mean Corpuscular Hemoglobin Concent 34.2 Mean Corpuscular Volume 89.6 Mean Platelet Volume 8.8 Platelet Count 104 #L Potassium Level 4.4 Red Blood Count 2.87 L Red Cell Distribution Width 27.7 H Sodium Level 143 Total Bilirubin 8.2 #H Total Protein 6.9 # White Blood Count 23.4 #H Medications Medications Current Medications Sodium Chloride (1/2 NS) 1,000 ml @ 30 mls/hr Q24H IV Last administered on 23:40; Admin Dose 30 MLS/HR; Start 05/02/16 at 08:00 Ondansetron HCl (Zofran Inj) 4 mg Q6H PRN IV NAUSEA AND/OR VOMITING Last administered on 05/02/16 12:14; Admin Dose 4 MG; Start 05/02/16 at 07:30 Fluconazole (Diflucan) 100 mg DAILY PO Last administered on 05/08/16 08:47; Admin Dose 100 MG; Start 05/02/16 at 09:00 Folic Acid (Folic Acid) 1 mg DAILY PO Last administered on 05/08/16 08:47; Admin Dose 1 MG; Start 05/02/16 at 09:00 Furosemide (Lasix) 40 mg DAILY PO Last administered on 05/08/16 08:49; Admin Dose 40 MG; Start 05/02/16 at 09:00 Lactulose (Enulose) 20 gm Q6 PO Last administered on 05/09/16 05:52; Admin Dose 20 GM; Start 05/02/16 at 12:00 Multivitamins Therapeutic (Theragran) 1 tab DAILY PO Last administered on 08:47; Admin Dose 1 TAB; Start 05/02/16 at 09:00 Oxycodone HCl (Roxicodone) 5 mg Q4H PRN PO PAIN Last administered on 05/09/16 06:15; Admin Dose 5 MG; Start 05/02/16 at 08:00 Pantoprazole (Protonix Tab) 40 mg BID@06,18 PO Last administered on 05/09/16 05:52; Admin Dose 40 MG; Start 05/02/16 at 08:00 Spironolactone 100 mg 100 mg DAILY PO Last administered on 05/08/16 08:47; Admin Dose 100 MG; Start 05/02/16 at 09:00 Cefepime HCl (Maxipime 1gm/50 ml (Pmx)) 50 ml @ 100 mls/hr Q12 IVPB Last administered on 05/08/16 21:00; Admin Dose 100 MLS/HR; Start 05/04/16 at 21:00 Nystatin (Nystatin Susp) 5 ml QID PO Last administered on 05/08/16 21:00; Admin Dose 5 ML; Start 05/08/16 at 17:00 MILADIS TELLEZ MD May 09, 2016 07:15
[2016-05-09 07:43] VITALS: BP 106/58; RESP 16
[2016-05-09] MEDS: FUROSEMIDE 40 MG TAB PO SCH (09:00)
[2016-05-09 09:19] LABS: ACANTHOCYTES 1+; LYMPHOCYTES # 0.7 10^3/ul (0.8-2.9); MONOCYTE # 1.6 10^3/ul (0.3-0.9); MYELOCYTES # 0.7; NEUTROPHIL # 17.8 10^3/ul (1.6-7.5); TARGET CELLS 1+
[2016-05-09] MEDS: NYSTATIN SUSP 5 ML CUP PO SCH ×4 (09:27→21:38)
[2016-05-09] MEDS: FLUCONAZOLE 100 MG TAB PO SCH (09:27)
[2016-05-09] MEDS: FOLIC ACID 1 MG TAB PO SCH (09:27)
[2016-05-09] MEDS: MULTIVITAMINS THERAPEUTIC TAB PO SCH (09:27)
[2016-05-09] MEDS: CEFEPIME 1GM/50 ML (PMX) 50 ML IVPB SCH (09:36)
[2016-05-09] MEDS: SPIRONOLACTONE 50 MG TAB PO SCH (12:11)
--- NOTE | 2016-05-09 14:36 | PN ---
Date/Time of Note Date/Time of Note DATE: 05/09/16 TIME: 14:24 Assessment/Plan VTE Prophylaxis VTE Prophylaxis Intervention: contraindicated VTE Contraindication Reason: bleeding Lines/Catheters IV Catheter Type (from Nrsg): Peripheral IV Urinary Cath still in place: No Assessment/Plan Chief Complaint/Hosp Course Assessment/Plan 1. Abd pain - possibly sec to alcohol hepatitis/cirrhosis - improved. - monitor, f/u GI rec's 2. Probable SBP: not enough fluid for paracentesis / abx per ID 3. Ecoli UTI - MDR - continue cefepime per ID, but watch for thrombocytopenia/bleeding (pt with minor upper lip bleed - if worsens or plts lower, consider d/c cefepime and switch to amikacin based on sensitivities). 4. End stage alcoholic cirrhosis with chronic alcoholic hepatitis - continue Lasix, lactulose, spironolactone meds - f/u GI rec's 5. Hyperbilirubinemia, coagulopathy 2/2 #4 6. Continued Alcohol abuse 7. Steroid induced Leucocytosis - trending down (30 -> 24) - no fevers - monitor. CBC in AM 8, Severe [place] esophagitis on last EGD: diflucan 9. Gram - eleuterio / [place] Pneumonia: likely from aspiration - see abx tx above Dispo f/u final cultures Steroids d/c as patient has chronic transaminitis from chronic cirrhosis without significant worsening / hyperbilirubinemia has slowly been worsening over months as well D/c planning to commence once WBC (which is likely steroid induced) starts to trend down and final ID from resp cultures obtained Alcohol cessation counselling done and will continue to be reinforced throughout hospitalization. Cont current abx per ID Poor prognosis Patient is to f/u at [facility] transplant center post d Problems: Subjective 24 Hr Interval Summary Free Text/Dictation Pt has an upper lip bleed, but otherwise no acute events overnight. Exam/Review of Systems Vital Signs Vitals Vital Signs Date Time Temp Pulse Resp B/P Pulse Ox O2 Delivery O2 Flow Rate FiO2 05/09/16 07:43 98.1 78 16 106/58 96 Intake and Output 05/08/16 05/08/16 05/09/16 15:00 23:00 07:00 Intake Total 100 ml 1950 ml 600 ml Balance 100 ml 1950 ml 600 ml Exam Constitutional: alert, oriented Eyes: icteric sclera Respiratory: diminished breath sounds Cardiovascular: regular rate and rhythm, No murmurs/extra sounds Gastrointestinal: bowel sounds, distended, soft Extremities: edema Neurological: nl mental status, nl speech Results Result Diagram: 05/09/1642605/09/16426 Results 24 hrs Laboratory Tests Test 05/09/16 04:27 Acanthocytes 1+ Alanine Aminotransferase (ALT/SGPT) 35 Albumin 2.3 L Albumin/Globulin Ratio 0.50 Alkaline Phosphatase 248 H Anion Gap 17 H Aspartate Amino Transf (AST/SGOT) 73 H Band Neutrophils % 11.0 H Blood Morphology Comment Blood Urea Nitrogen 23 H Calcium Level 8.5 Carbon Dioxide Level 22 Chloride Level 108 Creatinine 1.00 Direct Bilirubin 6.00 #H Globulin 4.60 H Glucose Level 130 Hematocrit 25.7 L Hemoglobin 8.8 L Indirect Bilirubin 2.2 H Lymphocytes # 0.7 L Lymphocytes % 3.0 L Mean Corpuscular Hemoglobin 30.6 Mean Corpuscular Hemoglobin Concent 34.2 Mean Corpuscular Volume 89.6 Mean Platelet Volume 8.8 Monocytes # 1.6 H Monocytes % 7.0 Myelocytes # 0.7 Myelocytes % 3.0 H Neutrophils # 17.8 H Neutrophils % 76.0 Platelet Count 104 #L Potassium Level 4.4 Red Blood Count 2.87 L Red Cell Distribution Width 27.7 H Sodium Level 143 Target Cells 1+ Total Bilirubin 8.2 #H Total Protein 6.9 # White Blood Count 23.4 #H Medications Medications Current Medications Sodium Chloride (1/2 NS) 1,000 ml @ 30 mls/hr Q24H IV Last administered on 23:40; Admin Dose 30 MLS/HR; Start 05/02/16 at 08:00 Ondansetron HCl (Zofran Inj) 4 mg Q6H PRN IV NAUSEA AND/OR VOMITING Last administered on 05/02/16 12:14; Admin Dose 4 MG; Start 05/02/16 at 07:30 Fluconazole (Diflucan) 100 mg DAILY PO Last administered on 05/09/16 09:27; Admin Dose 100 MG; Start 05/02/16 at 09:00 Folic Acid (Folic Acid) 1 mg DAILY PO Last administered on 05/09/16 09:27; Admin Dose 1 MG; Start 05/02/16 at 09:00 Furosemide (Lasix) 40 mg DAILY PO Last administered on 05/08/16 08:49; Admin Dose 40 MG; Start 05/02/16 at 09:00 Lactulose (Enulose) 20 gm Q6 PO Last administered on 05/09/16 12:11; Admin Dose 20 GM; Start 05/02/16 at 12:00 Multivitamins Therapeutic (Theragran) 1 tab DAILY PO Last administered on 09:27; Admin Dose 1 TAB; Start 05/02/16 at 09:00 Oxycodone HCl (Roxicodone) 5 mg Q4H PRN PO PAIN Last administered on 05/09/16 13:04; Admin Dose 5 MG; Start 05/02/16 at 08:00 Pantoprazole (Protonix Tab) 40 mg BID@06,18 PO Last administered on 05/09/16 05:52; Admin Dose 40 MG; Start 05/02/16 at 08:00 Spironolactone 100 mg 100 mg DAILY PO Last administered on 05/09/16 12:11; Admin Dose 100 MG; Start 05/02/16 at 09:00 Cefepime HCl (Maxipime 1gm/50 ml (Pmx)) 50 ml @ 100 mls/hr Q12 IVPB Last administered on 05/09/16 09:36; Admin Dose 100 MLS/HR; Start 05/04/16 at 21:00 Nystatin (Nystatin Susp) 5 ml QID PO Last administered on 05/09/16 09:27; Admin Dose 5 ML; Start 05/08/16 at 17:00 JASSON CARVER May 09, 2016 14:34
[2016-05-10] MEDS: LACTULOSE 30ML CUP PO SCH ×3 (00:11→12:27)
[2016-05-10] MEDS: CEFEPIME 1GM/50 ML (PMX) 50 ML IVPB SCH ×2 (00:11→08:53)
[2016-05-10] MEDS: SOD CHLORIDE 0.45% 1,000 ML IV SCH (00:12)
[2016-05-10] MEDS: oxyCODONE 5 MG TAB PO PRN ×3 (00:15→16:43)
[2016-05-10] MEDS: PANTOPRAZOLE (EC) 40 MG TAB PO SCH (06:27)
[2016-05-10 07:23] LABS: HEMATOCRIT 24.6 % (37.0-47.0); HEMOGLOBIN 8.5 g/dl (12.0-16.0); MEAN CORPUSCULAR HEMOGLOBIN 31.2 pg (29.0-33.0); MEAN CORPUSCULAR HGB CONC 34.6 g/dl (32.0-37.0); MEAN CORPUSCULAR VOLUME 90.3 fl (82.0-101.0); PLATELET COUNT 85 10^3/UL (140-440); RED BLOOD COUNT 2.73 10^6/ul (4.20-5.40); RED CELL DISTRIBUTION WIDTH 28.2 % (11.5-14.5); WHITE BLOOD COUNT 15.6 10^3/ul (4.8-10.8)
[2016-05-10 07:26] LABS: ALBUMIN 2.3 g/dl (3.3-4.9); POTASSIUM 4.2 mmol/L (3.5-5.1)
[2016-05-10 07:28] LABS: BILIRUBIN,DIRECT 5.7 mg/dl (0.00-0.20); BILIRUBIN,INDIRECT 2.1 mg/dl (0-1.1); BILIRUBIN,TOTAL 7.8 mg/dl (0.2-1.3); CREATININE 0.96 mg/dl (0.44-1.00)
[2016-05-10 07:29] LABS: ALBUMIN/GLOBULIN RATIO 0.52; TOTAL PROTEIN 6.7 g/dl (6.1-8.1)
[2016-05-10 07:30] LABS: CALCIUM 8.3 mg/dl (8.4-10.2)
[2016-05-10 07:37] LABS: CONDITION 1; LH ANALYZER COMMENTS 1; MEAN PLATELET VOLUME 9.9 fl (7.4-10.4); SUSPECT 1; UNCORRECTED WBC 16.7 10^3/ul (4.8-10.8)
[2016-05-10 08:04] VITALS: BP 106/55; RESP 18
[2016-05-10] MEDS: FLUCONAZOLE 100 MG TAB PO SCH (08:53)
[2016-05-10] MEDS: FOLIC ACID 1 MG TAB PO SCH (08:53)
[2016-05-10] MEDS: NYSTATIN SUSP 5 ML CUP PO SCH ×3 (08:53→16:43)
[2016-05-10] MEDS: MULTIVITAMINS THERAPEUTIC TAB PO SCH (08:53)
[2016-05-10] MEDS: SPIRONOLACTONE 50 MG TAB PO SCH (08:53)
[2016-05-10] MEDS: FUROSEMIDE 40 MG TAB PO SCH (08:53)
[2016-05-10 10:36] LABS: EOSINOPHILS # 0.3 10^3/ul (0.0-0.5); LYMPHOCYTES # 2.2 10^3/ul (0.8-2.9); MONOCYTE # 0.8 10^3/ul (0.3-0.9); NEUTROPHIL # 11.4 10^3/ul (1.6-7.5)
--- NOTE | 2016-05-10 12:21 | PDOCDIS ---
Discharge Instructions CONDITION Patient Condition: Stable HOME CARE INSTRUCTIONS: Special Diet: Regular ACTIVITY: Activity Restrictions: Slowly Increase Activity FOLLOW UP/APPOINTMENTS Appointments Please follow up with your doctor in the clinic and take your medications as prescribed. This includes [facility]. JASSON CARVER. May 10, 2016 12:21
[2016-05-10] MEDS ORDERED: SPIR100T31 PO (12:23)
[2016-05-10] MEDS ORDERED: MULTI PO (12:23)
[2016-05-10] MEDS ORDERED: PANT40TA3 PO (12:23)
[2016-05-10] MEDS ORDERED: FURO40TA PO (12:23)
[2016-05-10] MEDS ORDERED: FOLI-49 PO (12:23)
[2016-05-10] MEDS ORDERED: LACT20SO12 PO (12:23)
--- NOTE | 2016-05-10 12:55 | DS ---
DATE OF ADMISSION: 05/02/2016 DATE OF DISCHARGE: 05/10/2016 HOSPITAL COURSE: This is a 30-year-old female originally admitted on 2016 and being discharged home on 05/10/2016. The patient initially came in with abdominal pain. She was admitted and seen by the infectious disease team and GI team. It was found that her abdominal pain was possibly secondary to alcoholic hepatitis and cirrhosis. It slowly improved during her hospital stay. There was a possibility of also possible SBP, although there was not enough fluid for paracentesis. The patient was also diagnosed with E. coli UTI , multidrug resistant, and again she was on antibiotics for that. Patient was placed on antibiotics for that as well. The patient did continue Lasix, Lactulose and spironolactone for her end-stage alcoholic cirrhosis. She was found with chronic alcoholic hepatitis. She had elevated LFTs and again was evaluated by GI team for that. The patient apparently has been following up with [facility] for possible liver transplant as that is the superintendent [employer] goal for her. In the meantime, we are medically treating her as mentioned above. Over the course of her hospital stay, the abdominal pain symptoms improved. She was able to ambulate and tolerate a p.o. diet. She did have some leukocytosis as well and again with her infection there was concern about possible spreading of her infection. But again, she was also on steroids and as we tapered down her steroids, her white blood cell count was decreasing by the time of discharge. It was almost back to normal by the time of discharge, but again no fevers and she will be discharged home today in improved condition. She will be sent with Fluconazole 100 mg p.o. daily for 7 more days, folic acid 1 mg daily, Lasix 20 mg daily, Arroyo 5/325 one tab p.o. q.6 p.r.n., Lactulose 20 grams p.o. q.6h, multivitamin 1 tab daily, OxyIR 10 mg p.o. q. 4 p.r.n., Protonix 40 mg b.i.d., Spironolactone 100 mg daily, Levaquin 500 mg daily for 7 days and oral nystatin swallow q.i.d. to help with esophageal candidiasis. Need to follow up with her regular doctor in the clinic in the next 1 to 2 weeks as well as [facility] for evaluation for possible liver transplant. FINAL DIAGNOSES: 1. Abdominal pain secondary to alcoholic hepatitis and cirrhosis, now improved. 2. Escherichia coli, multidrug resistant urinary tract infection, now on antibiotic treatment. 3. History of end-stage liver disease and chronic alcoholic hepatitis. 4. Hyperbilirubinemia and coagulopathy secondary to end-stage liver disease. No signs of any active bleeding presently. 5. Continued alcohol abuse. Educated about cessation. 6. Steroid induced leukocytosis. WBC trending down now 7. History of severe Carolina esophagitis on last EGD, now on Diflucan. 8. Carolina pneumonia in the past and gram-negative eleuterio upper respiratory infection as well. Time spent discharging patient 45 minutes. Dictated By: JASSON CHAVIRA Conf#: [id number] DID#: [id number] MTDD
--- NOTE | 2016-05-10 14:09 | PN ---
DATE: 05/10/2016 SUBJECTIVE: No acute changes. The patient is sleeping, looks comfortable, no fevers. WBC today 15.6 with bands 5, lymphs 14, monos 5, BUN 22, creatinine 0.96. MICROBIOLOGY: Sputum culture growing Carolina albicans and gram-negative rods. ANTIMICROBIALS: 1. Cefepime. 2. Fluconazole. PHYSICAL EXAMINATION: GENERAL: Chronically ill-appearing, middle-aged woman who is in no distress. HEENT: Head atraumatic, normocephalic. Sclerae icteric. Buccal mucosa dry. NECK: Supple, trachea midline. CHEST: Rise symmetrical. Breath sounds diminished to bases. HEART: S1, S2. ABDOMEN: Soft. Bowel tones present. EXTREMITIES: Without cyanosis. SKIN: Positive for jaundice and anasarca. ASSESSMENT: 1. Systemic inflammatory response syndrome with resolving leukocytosis, possibly secondary to stero id demargination and also secondary to #2. 2. Resolving urinary tract infection. 3. Ascites. 4. Alcoholic cirrhosis. 5. Severe [place] esophagitis on prior EGD. 5. Anemia, thrombocytopenia and coagulopathy. PLAN: The patient remains stable. WBC tracing down. Continue present care, antibiotics. Follow G I recommendations. Dictated By: NOEL SHARIF MODELING TEACHER for [employer]LEY/NTS Conf#: [id number] DID#: [id number]
== END 2016-05-10 17:47 | disposition home or self-care (01) | DRG 432 ==
LOC: E/R 00:15 → PP2 02:18
PROVIDERS: ADMIT Internal Medicine; ATTEND Internal Medicine
DX: K70.11 Alcoholic hepatitis with ascites (principal); K65.2 Spontaneous bacterial peritonitis; K70.31 Alcoholic cirrhosis of liver with ascites; D68.8 Other specified coagulation defects; J90 Pleural effusion, not elsewhere classified; B37.81 Candidal esophagitis; N39.0 Urinary tract infection, site not specified; B96.20 Unspecified Escherichia coli [E. coli] as the cause of diseases classified elsewhere; D69.6 Thrombocytopenia, unspecified; D72.829 Elevated white blood cell count, unspecified; T38.0X5A Adverse effect of glucocorticoids and synthetic analogues, initial encounter; Y92.230 Patient room in hospital as the place of occurrence of the external cause; Z16.24 Resistance to multiple antibiotics
CPT/HCPCS: 36415; 71010; 76705; 80053; 80202; 81001; 81003; 82565; 83036; 83605; 83735; 84100; 84484; 84520; 85025; 85610; 85730; 87040; 87070; 87086; 93005; 96374; 96375; 96376; J0692; J0696; J2270; J2405; J2543; J3370; J3480; J7030; J7040; J7510; J7512

== ENCOUNTER 2016-05-12 04:29 | Emergency (ER) | payer MEDICAID ==
[~2016-05-12] VITALS: Ht 170.2 cm; Wt 109.1 kg
[2016-05-12 04:44] VITALS: Ht 170.2 cm; Wt 109.1 kg
[2016-05-12 06:01] LABS: MEAN CORPUSCULAR HEMOGLOBIN 31.1 pg (29.0-33.0); MEAN CORPUSCULAR HGB CONC 34.5 g/dl (32.0-37.0); MEAN CORPUSCULAR VOLUME 90.1 fl (82.0-101.0); RED BLOOD COUNT 3.22 10^6/ul (4.20-5.40); RED CELL DISTRIBUTION WIDTH 28.5 % (11.5-14.5); WHITE BLOOD COUNT 16.1 10^3/ul (4.8-10.8)
[2016-05-12 06:04] LABS: MEAN PLATELET VOLUME 9.7 fl (7.4-10.4); PLATELET COUNT 173 10^3/UL (140-440); SUSPECT 1; UNCORRECTED WBC 17.1 10^3/ul (4.8-10.8)
[2016-05-12 06:05] LABS: CONDITION 1; LH ANALYZER COMMENTS 1
[2016-05-12 06:06] LABS: POTASSIUM 4.8 mmol/L (3.5-5.1)
[2016-05-12 06:08] LABS: ALBUMIN/GLOBULIN RATIO 0.58; BILIRUBIN,DIRECT 7.4 mg/dl (0.00-0.20); BILIRUBIN,INDIRECT 2.5 mg/dl (0-1.1); BILIRUBIN,TOTAL 9.9 mg/dl (0.2-1.3); CREATININE 0.81 mg/dl (0.44-1.00); TOTAL PROTEIN 8.1 g/dl (6.1-8.1)
--- NOTE | 2016-05-12 06:08 | RADRPT ---
PROCEDURE: XR Chest. CLINICAL INDICATION: Abdominal pain TECHNIQUE: A single AP view of the chest was obtained. COMPARISON: Chest x-ray dated 05/03/2016 FINDINGS: No focal airspace opacification, pleural effusion or pneumothorax is seen. The cardiomediastinal si lhouette is within normal limits for size. The osseous structures are unremarkable. IMPRESSION: No radiographic evidence of acute cardiopulmonary disease. interval resolution of previously note d right lower lobe pneumonia. RPTAT: HH .Niya Martinez MD, MD Date Time Electronically viewed and signed by .Niya Martinez MD, MD on 05/12/2016 06:07 .G/
[2016-05-12 06:09] LABS: CALCIUM 8.5 mg/dl (8.4-10.2); INR 1.99; PROTIME 22.8 Sec (12.2-14.2); PT RATIO 1.8
[2016-05-12 06:10] LABS: PARTIAL THROMBOPLASTIN TIME 35.4 Sec (25.0-35.0)
[2016-05-12] MEDS ORDERED: ONDANSETRON 4 MG INJ IV STA (06:20)
[2016-05-12] MEDS ORDERED: morphine 4 MG/ML VIAL IV STA (06:20)
[2016-05-12 06:26] LABS: ADD UMIC YES; URINE BILIRUBIN (Dip) 3+ (NEGATIVE); URINE BLOOD (Dip) 2+ (NEGATIVE); URINE COLOR AMBER (YELLOW); URINE GLUCOSE (Dip) NEGATIVE (NEGATIVE); URINE KETONES (Dip) NEGATIVE (NEGATIVE); URINE LEUKOCYTE ESTERASE (Dip) NEGATIVE (NEGATIVE); URINE NITRITE (Dip) NEGATIVE (NEGATIVE); URINE TOTAL PROTEIN (Dip) 2+ (NEGATIVE); URINE UROBILINOGEN (Dip) 0.2 E.U./dL (0.1-1.0)
[2016-05-12 06:42] LABS: ICTOTEST POSITIVE (NEGATIVE)
[2016-05-12 06:44] LABS: BACTERIA,URINE FEW; RENAL EPITHELIAL CELLS,URINE MODERATE
[2016-05-12] MEDS ORDERED: OXYC5CAP17 PO (07:36)
[2016-05-12] MEDS ORDERED: ONDA4TAB11 PO (07:36)
--- NOTE | 2016-05-12 07:54 | ERD ---
ER Documentation Chief Complaint Date/Time DATE: 05/12/16 TIME: 07:43 Chief Complaint DISCHARGED FROM HOSPITAL MONDAY. ABD PAIN WITH DIARRHEA/FEVER. PAIN HPI 30-year-old female complains of right upper quadrant pain as well as diarrhea and feeling hot and cold. States that she had the same symptoms that she had when she went to the hospital a few days ago but the pain was controlled pain medication then. She was discharged less than 48 hours ago.. She says that when she left the hospital she was unable to fill her pain medication prescription because the pharmacy needed to verify it with the physician and he could not be reached.. The pain returned to her shortly after and she had no pain medication. She therefore presents back to the hospital for the pain. She has had mild nausea with no vomiting. ROS All systems reviewed and are negative except as per history of present illness. Medications Home Meds Active Scripts Oxycodone Hcl* (IR) (Oxycodone Hcl*) 5 Mg Capsule, 10 MG PO Q6 Y for PAIN, #24 CAP Prov:ESTHER SAAB DO 05/12/16 Ondansetron (Zofran Odt) 4 Mg Tab.rapdis, 4 MG PO Q6, #10 Prov:ESTHER SAAB DO 05/12/16 Spironolactone* (Spironolactone*) 100 Mg Tablet, 100 MG PO DAILY for 30 Days, # 30 TAB 3 Refills Prov:JASSON CARVER S. 05/10/16 Furosemide* (Lasix*) 40 Mg Tablet, 40 MG PO DAILY for 30 Days, #30 TAB 3 Refills Prov:JASSON CARVER S. 05/10/16 Folic Acid* (Folic Acid*) 1 Mg Tablet, 1 MG PO DAILY for 30 Days, #30 TAB 3 Refills Prov:JASSON CRAVER S. 05/10/16 Multivitamins* (Theragran*) 1 Tab Tab, 1 TAB PO DAILY for 30 Days, #30 TAB 3 Refills Prov:JASSON CARVER S. 05/10/16 Lactulose* (Cephulac*) 20 Gm/30 Ml Soln, 20 GM PO Q6, #120 3 Refills Prov:JASSON CARVER S. 05/10/16 Pantoprazole* (Protonix*) 40 Mg Tablet.dr, 40 MG PO BID, #60 TAB 2 Refills Prov:JASSON CARVER. 05/10/16 Oxycodone Hcl* (IR) (Oxycodone Hcl*) 5 Mg Capsule, 5 MG PO Q4H Y for PAIN, #20 CAP Prov:ESTHER SAAB DO 04/14/16 Hydrocodone/Acetaminophen (Powell 5-325 Tablet) 1 Each Tablet, 1 EACH PO Q6H, # 30 TAB Prov:CANDELARIOHENRYBOBBI 04/12/16 Discontinued Scripts Fluconazole* (Fluconazole*) 100 Mg Tablet, 100 MG PO DAILY for 7 Days, TAB Prov:HENRY PALOMINONELL 04/12/16 Allergies Allergies: Coded Allergies: No Known Allergy (Unverified , 04/14/16) PMhx/Soc Anesthesia Reaction: No Hx Neurological Disorder: No Hx Respiratory Disorders: No Hx Cardiac Disorders: Yes (hypotensive) Hx Psychiatric Problems: No Hx Miscellaneous Medical Probl: Yes (ETOH abuse, ESLD on [facility] transplant list) Hx Alcohol Use: Yes (last drink 1.5 months ago) Hx Substance Use: Yes Hx Tobacco Use: No Smoking Status: Former smoker Physical Exam Vitals Vital Signs Date Time Temp Pulse Resp B/P Pulse Ox O2 Delivery O2 Flow Rate FiO2 05/12/16 05:47 70 16 110/54 99 Room Air 05/12/16 04:44 98.4 95 18 119/61 99 Physical Exam Const: [] No distress Head: Atraumatic Eyes: Normal Conjunctiva ENT: Normal External Ears, Nose and Mouth. Neck: Full range of motion..~ No meningismus. Resp: Clear to auscultation bilaterally Cardio: Regular rate and rhythm, no murmurs Abd: Soft, mild right upper quadrant pain without guarding or rebound non distended. Normal bowel sounds Skin: No petechiae or rashes, generalized orange jaundice. Back: No midline or flank tenderness Ext: No cyanosis, or edema Neur: Awake and alert Psych: Normal Mood and Affect Result Diagram: 05/12/1651905/12/16519 Results 24 hrs Laboratory Tests Test 05/12/16 05:20 05/12/16 05:45 Activated Partial Thromboplast Time 35.4Sec Alanine Aminotransferase (ALT/SGPT) 57IU/L Albumin 3.0g/dl Albumin/Globulin Ratio 0.58 Alkaline Phosphatase 247IU/L Anion Gap 18 Aspartate Amino Transf (AST/SGOT) 191IU/L Blood Morphology Comment Blood Urea Nitrogen 15mg/dl Calcium Level 8.5mg/dl Carbon Dioxide Level 24mmol/L Chloride Level 103mmol/L Creatinine 0.81mg/dl Direct Bilirubin 7.40mg/dl Globulin 5.10g/dl Glucose Level 118mg/dl Hematocrit 29.0% Hemoglobin 10.0g/dl INR International Normalized Ratio 1.99 Indirect Bilirubin 2.5mg/dl Lipase 1093U/L Mean Corpuscular Hemoglobin 31.1pg Mean Corpuscular Hemoglobin Concent 34.5g/dl Mean Corpuscular Volume 90.1fl Mean Platelet Volume 9.7fl Platelet Count 30583^3/UL Potassium Level 4.8mmol/L Prothrombin Time 22.8Sec Prothrombin Time Ratio 1.8 Red Blood Count 3.2210^6/ul Red Cell Distribution Width 28.5% Sodium Level 140mmol/L Total Bilirubin 9.9mg/dl Total Protein 8.1g/dl White Blood Count 16.110^3/ul Urine Bacteria FEW Urine Bilirubin 3+ Urine Clarity CLEAR Urine Color NEVA Urine Epithelial Cells FEW Urine Glucose NEGATIVE% Urine Hemoglobin 2+ Urine Ictotest POSITIVE Urine Ketones NEGATIVE Urine Leukocyte Esterase NEGATIVE Urine Microscopic RBC 5-10/HPF Urine Microscopic WBC 0-2/HPF Urine Nitrite NEGATIVE Urine Renal Epithelial Cells MODERATE Urine Specific Elbe 1.015 Urine Total Protein 2+ Urine Urobilinogen 0.2 E.U./dL Urine pH 7.0 Current Medications Medications (Trade) Dose Ordered Sig/Latoya Route PRN Reason Start Time Stop Time Status Last Admin Dose Admin Morphine Sulfate (morphine) 4 mg ONCE STAT IV 05/12/16 06:20 05/12/16 06:21 DC 05/12/16 06:25 Ondansetron HCl (Zofran Inj) 4 mg ONCE STAT IV 05/12/16 06:20 05/12/16 06:21 DC 05/12/16 06:25 Procedures/MDM 30-year-old female precautions abdominal pain is the same as she presented with last time. She has severe alcoholic cirrhosis and is on the transplant list currently. States that she needs pain control. She is afebrile the emergency room with a 16.1 white count which is essentially the same as her 15.6 white count upon discharge it was down from 23 the prior check.. She is having no new symptoms. She was given morphine and Zofran in the emergency room which led to complete resolution of nausea and decreased pain. She did have an elevated lipase that had never been checked previously and had a CAT scan that showed a normal pancreas last month. A call to spoke to Dr. Valdez about the lipase to the never been checked previously. He believed that the patient could be discharged with follow-up with Dr. Gray, who he believes has office hours every day because his PA come to the office. Recommended that she follow up for repeat lipase in trending of such. As the patient does also diabetes she may also have a gastroenteritis. She states that she feels better and feels comfortable going home versus offered admission. Admitted discharge her with her laboratories printed and the lipase or cold she can take it to Dr. Gray, who also has records to her previous laboratories. Instructing her to call him today to see him either tomorrow or Monday for repeat lipase.. Also told to return to the hospital if the pain is not controlled or she has any new concerning symptoms. Discharging her with OxyContin 10 mg, 20 tablets as well as Zofran ODT. Chest x-ray interpretation: No acute process, no widened mediastinum and pneumothorax no pulmonary edema, no fractures Departure Diagnosis: Primary Impression: Elevated lipase Additional Impressions: RUQ abdominal pain ALC (alcoholic liver cirrhosis) Condition: Stable Patient Instructions: Abdominal Pain, Cirrhosis of the Liver Referrals: ZOFIA GRAY MD Additional Instructions: Call your primary care doctor TOMORROW for an appointment during the next 1 WEEK.Tell the card room manager that you were referred from this facility. See the doctor sooner or return here if your condition worsens before your appointment time. ESTHER SAAB DO May 12, 2016 07:53
[2016-05-12 08:30] VITALS: BP 114/65; PULSE 71; RESP 18
[2016-05-12 09:52] LABS: LYMPHOCYTES # 1.9 10^3/ul (0.8-2.9); MONOCYTE # 0.2 10^3/ul (0.3-0.9); NEUTROPHIL # 13.5 10^3/ul (1.6-7.5)
[2016-05-12 09:53] LABS: ANISOCYTOSIS 3+
== END 2016-05-12 08:32 | disposition home or self-care (01) ==
LOC: E/R 04:29
DX: R74.8 Abnormal levels of other serum enzymes (principal); R10.11 Right upper quadrant pain; K70.30 Alcoholic cirrhosis of liver without ascites; R11.0 Nausea; R40.2142 Coma scale, eyes open, spontaneous, at arrival to emergency department; R40.2252 Coma scale, best verbal response, oriented, at arrival to emergency department; R40.2362 Coma scale, best motor response, obeys commands, at arrival to emergency department; Z87.891 Personal history of nicotine dependence
CPT/HCPCS: 71010; 80053; 81001; 83690; 85025; 85610; 85730; J2270; J2405; 36415; 81003; 96374; 96375

== ENCOUNTER 2016-05-25 17:13 | Emergency (ER) | payer MEDICAID ==
[~2016-05-25] VITALS: Ht 157.5 cm; Wt 90.5 kg
[~2016-05-25 17:13] MED LIST changes: -FLUC100T39 PO; +FURO-109 PO; -FURO40TA PO; +ONDA4TAB11 PO
[2016-05-25 17:17] VITALS: Ht 157.5 cm; Wt 90.5 kg
--- NOTE | 2016-05-25 22:22 | ERA ---
ER Documentation Chief Complaint Date/Time DATE: 05/25/16 TIME: 22:21 Chief Complaint Abdominal pain HPI The patient is a 30-year-old female, presenting to the ER because of chronic abdominal pain, 5/10, worse with constipation. She also complained of insomnia , vomiting mostly mucus. She denies fever, chills, neck pain, chest pain, dyspnea, diarrhea, dysuria. She smokes socially, her last alcoholic intake was about 3 months ago, denies any illicit drug Past medical history: Cirrhosis, splenomegaly Past surgical history: Cholecystectomy, appendectomy ROS All systems reviewed and are negative except as per history of present illness. Medications Home Meds Active Scripts Ibuprofen* (Motrin*) 600 Mg Tab, 600 MG PO Q6H Y for PAIN AND OR ELEVATED TEMP, #30 TAB Prov:CORAZON ARRIOLA MD 05/26/16 Oxycodone Hcl* (IR) (Oxycodone Hcl*) 5 Mg Capsule, 10 MG PO Q6 Y for PAIN, #24 CAP Prov:ESTHER SAAB DO 05/12/16 Ondansetron (Zofran Odt) 4 Mg Tab.rapdis, 4 MG PO Q6, #10 Prov:ESTHER SAAB DO 05/12/16 Spironolactone* (Spironolactone*) 100 Mg Tablet, 100 MG PO DAILY for 30 Days, # 30 TAB 3 Refills Prov:JASSON CARVER S. 05/10/16 Furosemide* (Lasix*) 40 Mg Tablet, 40 MG PO DAILY for 30 Days, #30 TAB 3 Refills Prov:JASSON CARVER S. 05/10/16 Folic Acid* (Folic Acid*) 1 Mg Tablet, 1 MG PO DAILY for 30 Days, #30 TAB 3 Refills Prov:JASSON CARVER S. 05/10/16 Multivitamins* (Theragran*) 1 Tab Tab, 1 TAB PO DAILY for 30 Days, #30 TAB 3 Refills Prov:JASSON CARVER S. 05/10/16 Lactulose* (Cephulac*) 20 Gm/30 Ml Soln, 20 GM PO Q6, #120 3 Refills Prov:JASSON CARVER S. 05/10/16 Pantoprazole* (Protonix*) 40 Mg Tablet.dr, 40 MG PO BID, #60 TAB 2 Refills Prov:JASSON CARVER. 05/10/16 Oxycodone Hcl* (IR) (Oxycodone Hcl*) 5 Mg Capsule, 5 MG PO Q4H Y for PAIN, #20 CAP Prov:ESTHER SAAB DO 04/14/16 Hydrocodone/Acetaminophen ([place] 5-325 Tablet) 1 Each Tablet, 1 EACH PO Q6H, # 30 TAB Prov:BOBBI PALOMINO 04/12/16 Allergies Allergies: Coded Allergies: No Known Allergy (Unverified , 05/25/16) PMhx/Soc Anesthesia Reaction: No Hx Neurological Disorder: No Hx Respiratory Disorders: No Hx Cardiac Disorders: Yes (hypotensive) Hx Psychiatric Problems: No Hx Miscellaneous Medical Probl: Yes (ETOH abuse, ESLD on [facility] transplant list) Hx Alcohol Use: Yes (last drink 1.5 months ago) Hx Substance Use: Yes Hx Tobacco Use: No Physical Exam Vitals Vital Signs Date Time Temp Pulse Resp B/P Pulse Ox O2 Delivery O2 Flow Rate FiO2 05/26/16 02:42 94 14 104/58 100 Room Air 05/26/16 00:27 91 16 93/53 100 Room Air 05/25/16 17:17 98.1 99 20 120/58 99 Physical Exam Const: No acute distress. Head: Atraumatic. Eyes: Normal Conjunctiva. ENT: Normal External Ears, Nose and Mouth. Neck: Full range of motion. No meningismus. Resp: Clear to auscultation bilaterally. Cardio: Regular rate and rhythm, no murmurs. Abd: Soft, non distended, normal bowel sounds, vague and diffuse abdominal tenderness, no rigidity, rebound, CVA tenderness Skin: No petechiae or rashes. Back: No midline or flank tenderness. Ext: No cyanosis, or edema. Neur: Awake and alert. No focal deficit Psych: Normal Mood and Affect. Result Diagram: 05/25/16231905/25/162319 Results 24 hrs Laboratory Tests Test 05/25/16 22:36 05/25/16 22:40 05/25/16 23:20 Bedside Urine Blood Negative Bedside Urine Glucose (UA) Negative Bedside Urine Ketones (LAB) Negative Bedside Urine Leukocyte Esterase (L Negative Bedside Urine Nitrite (LAB) Negative Bedside Urine Protein (LAB) Trace Bedside Urine pH (LAB) 7.0 Urine Amphetamines Screen Negative Urine Barbiturates Negative Urine Benzodiazepines Screen Negative Urine Cannabinoids Negative Urine Cocaine Screen Negative Urine Opiates Screen Positive Activated Partial Thromboplast Time 42.0Sec Alanine Aminotransferase (ALT/SGPT) 28IU/L Albumin 2.7g/dl Albumin/Globulin Ratio 0.62 Alkaline Phosphatase 175IU/L Anion Gap 17 Aspartate Amino Transf (AST/SGOT) 48IU/L Basophils # 0.110^3/ul Basophils % 0.7% Blood Morphology Comment Blood Urea Nitrogen 6mg/dl Calcium Level 8.6mg/dl Carbon Dioxide Level 23mmol/L Chloride Level 103mmol/L Creatinine 0.82mg/dl Direct Bilirubin 0.60mg/dl Eosinophils # 0.210^3/ul Eosinophils % 1.6% Ethyl Alcohol Level < 10.0mg/dl Globulin 4.30g/dl Glucose Level 91mg/dl Hematocrit 28.4% Hemoglobin 9.6g/dl INR International Normalized Ratio 2.18 Indirect Bilirubin 1.8mg/dl Lipase 261U/L Lymphocytes # 1.510^3/ul Lymphocytes % 14.9% Mean Corpuscular Hemoglobin 31.7pg Mean Corpuscular Hemoglobin Concent 33.6g/dl Mean Corpuscular Volume 94.3fl Mean Platelet Volume 8.3fl Monocytes # 0.410^3/ul Monocytes % 4.3% Neutrophils # 7.710^3/ul Neutrophils % 78.5% Nucleated Red Blood Cells # 0.010^3/ul Nucleated Red Blood Cells % 0.0/100WBC Platelet Count 93117^3/UL Potassium Level 3.4mmol/L Prothrombin Time 24.5Sec Prothrombin Time Ratio 1.9 Red Blood Count 3.0210^6/ul Red Cell Distribution Width 23.3% Sodium Level 140mmol/L Total Bilirubin 2.4mg/dl Total Protein 7.0g/dl White Blood Count 9.910^3/ul Current Medications Medications (Trade) Dose Ordered Sig/Latoya Route PRN Reason Start Time Stop Time Status Last Admin Dose Admin Sodium Chloride (NS) 1,000 ml @ 1,000 mls/hr Q1H ONCE IV 05/25/16 22:30 05/25/16 23:29 DC 05/25/16 22:44 Ketorolac Tromethamine (Toradol) 30 mg ONCE STAT IV 05/25/16 23:15 05/25/16 23:16 DC 05/26/16 02:47 Potassium Chloride (Klor-Con 20) 20 meq ONCE ONCE PO 05/26/16 01:29 05/26/16 01:30 DC 05/26/16 01:53 Ondansetron HCl (Zofran Inj) 4 mg ONCE ONCE IV 05/26/16 02:02 05/26/16 02:03 DC 05/26/16 02:07 Procedures/MDM [place] [address] Radiology Main Line: [phone] DIAGNOSTIC IMAGING REPORT Patient: YNES SOUSA : 1985 Age: 30 Sex: F MR #: [id number] DOS: 05/25/162227 Ordering MD: CORAZON ARRIOLA MD Location: E/R Room/Bed: PROCEDURE: XR Chest. CLINICAL INDICATION: Shortness of breath. TECHNIQUE: Single frontal view. COMPARISON: 05/12/2016. FINDINGS: The lungs are clear. The heart size is normal. There is no pleural effusion. There is no pneumothorax. IMPRESSION: 1. Normal chest radiograph. 2. No change from 05/12/2016. RPTAT: QQ .Randy Joel MD, MD Date Time Electronically viewed and signed by .Randy Joel MD, MD on 05/25/2016 23:22 .R/ CC: CORAZON ARRIOLA MD [place] [address] Radiology Main Line: [phone] DIAGNOSTIC IMAGING REPORT Patient: YNES SOUSA : 1985 Age: 30 Sex: F MR #: [id number] DOS: 05/25/162227 Ordering MD: CORAZON ARRIOLA MD Location: E/R Room/Bed: PROCEDURE: CT Abdomen and Pelvis without contrast. CLINICAL INDICATION: Abdominal pain TECHNIQUE: CT scan of the abdomen and pelvis without contrast was performed on a multidetector high-resolution CT scanner. The patient was scanned without intravenous contrast. No oral contrast was administered. Coronal and sagittal reformatted images were obtained from the axial source images. Images were reviewed on a high-resolution PACS workstation. The total exam CTDI equals 21.1 mGy and the total exam DLP equals 1339.51 mGy-cm. One or more of the following dose reduction techniques were used: - Automated exposure control. - Adjustment of the mA and/or kV according to patient size. - Use of iterative reconstruction technique. COMPARISON: Limited abdominal ultrasound of 05/02/2016, MRI of the abdomen of 04/03/[address] abdomen and pelvis without contrast of 04/02/2016 FINDINGS: Lungs: Linear atelectasis/fibrosis is seen at the lung bases. Small pericardial effusion again seen. Liver: No abnormality seen. Previously seen hepatic steatosis is not apparent presently. Gallbladder: Cholecystectomy. Spleen: Splenomegaly with vertical length of the spleen 15 cm not significantly changed compared to 04/02/2016. Stomach: The stomach is not distended. Pancreas: No abnormality seen. Adrenals: No abnormality seen. Kidneys: No abnormality seen. Abdominal aorta: No aneurysm seen. Lymph nodes: No enlarged lymph nodes are seen. There is nonspecific approximate 9 mm short axis periportal lymph node again seen and an approximate 8 mm short axis portacaval lymph node again seen. Small bowel: No dilated small bowel loops are seen. Colon: Diverticula in sigmoid, ascending colon. Appendix: Not seen. Bladder: No abnormality seen Pelvic organs: There is a 3.6 x 3.5 x 3.4 cm right ovarian cyst which appears to be minimally larger than on the 04/02/2016 study. Ascites: Small amount of ascites around liver edge appearing since 04/02/2016 study. Small amount of free fluid in cul-de-sac. Osseous structures: Small likely bone island in the right femoral head again seen. Mild degenerative changes at sacroiliac joints. Subcutaneous edema increased compared to previous study. Very small umbilical hernia containing fat again seen. IMPRESSION: Splenomegaly again seen. 3.6 cm right ovarian cyst minimally larger than on 01/2016 study. Pelvic ultrasound is recommended. Small amount of ascites around liver edge appearing since 04/02/2016. Small amount of free fluid in cul -de-sac region again seen. Subcutaneous edema increased compared to previous study. Please see above. RPTAT: HJES .Hernan Johnson MD, MD Date Time Electronically viewed and signed by .Hernan Johnson MD, on 05/26/2016 00:15 .S/ CC: CORAZON ARRIOLA MD [place] [address] Radiology Main Line: [phone] DIAGNOSTIC IMAGING REPORT Patient: YNES SOUSA : 1985 Age: 30 Sex: F MR #: [id number] DOS: 05/26/16 0123 Ordering MD: CORAZON ARRIOLA MD Location: E/R Room/Bed: PROCEDURE: US Non-OB Pelvis. CLINICAL INDICATION: Pain. TECHNIQUE: Multiple sonographic images of the pelvis were obtained utilizing a transabdominal technique. The images were reviewed on a PACS workstation. COMPARISON: None. FINDINGS: The uterus is visualized and measures 8.3 x 3.3 x 5.0 cm. The endometrial echo complex is normal and measures . The right ovary measures 5.3 x 3.5 x 4.5 cm. There is a 3.7 cm simple right ovarian cyst. The left ovary measures 4.0 x 2.2 x 2.9 cm. Blood flow is demonstrated to both ovaries. No adnexal masses are noted. There is a small volume of free fluid in the pelvic cul-de-sac. IMPRESSION: 1. Unremarkable appearance of the uterus and left ovary. 2. Simple right ovarian cyst measuring 3.7 cm. 3. Small volume of free pelvic fluid, probably physiologic. RPTAT: HTAR .Wenceslao Pocne MD, MD Date Time Electronically viewed and signed by .Wenceslao Ponce MD, MD on 05/26/2016 02:46 .R/ CC: CORAZON ARRIOLA MD MEDICAL MAKING DECISION: The patient is a 30-year-old female, presenting with chronic abdominal pain, most likely related to her cirrhosis, acute hypokalemia , constipation. The differential diagnoses considered include but are not limited to cholelithiasis, cholecystitis, cystitis, pancreatitis, hepatitis, gastritis, peptic ulcer disease, gastric ulcer, appendicitis, diverticulitis, cholangitis, choledocholithiasis, partial small bowel obstruction. she was treated with 1 L normal saline for clinical dehydration, Toradol 30 m IV for pain and potassium chloride 20 mEq p.o. with good response. Departure Diagnosis: Primary Impression: Abdominal pain Additional Impressions: Hypokalemia Right ovarian cyst Ascites Coagulopathy Anemia Condition: Good Comments She was discharged with Motrin and MiraLAX I discussed the findings with the patient. I advised the patient to follow-up with the primary physician in about 1-2 days, sooner if needed and return if any concern. CORAZON ARRIOLA MD May 25, 2016 22:22
[2016-05-25] MEDS ORDERED: SOD CHLORIDE 0.9% 1,000 ML IV ONE (22:30)
[2016-05-25 22:36] LABS: URINE BLOOD (Dip) POC Negative (NEGATIVE)
[2016-05-25] MEDS: KETOROLAC 30 MG INJ IV STA (23:18)
--- NOTE | 2016-05-25 23:23 | RADRPT ---
PROCEDURE: XR Chest. CLINICAL INDICATION: Shortness of breath. TECHNIQUE: Single frontal view. COMPARISON: 05/12/2016. FINDINGS: The lungs are clear. The heart size is normal. There is no pleural effusion. There is no pneumothorax. IMPRESSION: 1. Normal chest radiograph. 2. No change from 05/12/2016. RPTAT: QQ .Randy Joel MD, MD Date Time Electronically viewed and signed by .Randy Joel MD, MD on 05/25/2016 23:22 .R/
[2016-05-25 23:54] LABS: BASOPHIL # 0.1 10^3/ul (0.0-0.1); BASOPHILS % 0.7 % (0.0-2.0); EOSINOPHILS # 0.2 10^3/ul (0.0-0.5); EOSINOPHILS % 1.6 % (0.0-7.0); HEMATOCRIT 28.4 % (37.0-47.0); HEMOGLOBIN 9.6 g/dl (12.0-16.0); LYMPHOCYTES # 1.5 10^3/ul (0.8-2.9); LYMPHOCYTES % 14.9 % (15.0-51.0); MEAN CORPUSCULAR HEMOGLOBIN 31.7 pg (29.0-33.0); MEAN CORPUSCULAR HGB CONC 33.6 g/dl (32.0-37.0); MEAN CORPUSCULAR VOLUME 94.3 fl (82.0-101.0); MEAN PLATELET VOLUME 8.3 fl (7.4-10.4); MONOCYTE # 0.4 10^3/ul (0.3-0.9); MONOCYTES % 4.3 % (0.0-11.0); NEUTROPHIL # 7.7 10^3/ul (1.6-7.5); NEUTROPHILS % 78.5 % (39.0-77.0); PLATELET COUNT 197 10^3/UL (140-440); RED BLOOD COUNT 3.02 10^6/ul (4.20-5.40); RED CELL DISTRIBUTION WIDTH 23.3 % (11.5-14.5); UNCORRECTED WBC 9.9 10^3/ul (4.8-10.8); WHITE BLOOD COUNT 9.9 10^3/ul (4.8-10.8)
[2016-05-25 23:57] LABS: CONDITION 1; LH ANALYZER COMMENTS 1
[2016-05-26 00:01] LABS: ALBUMIN 2.7 g/dl (3.3-4.9); CHLORIDE 103 mmol/L (97-110); POTASSIUM 3.4 mmol/L (3.5-5.1); SODIUM 140 mmol/L (135-144)
[2016-05-26 00:03] LABS: CREATININE 0.82 mg/dl (0.44-1.00)
[2016-05-26 00:04] LABS: ALANINE AMINOTRANSFERASE 28 IU/L (13-69); ALBUMIN/GLOBULIN RATIO 0.62; ALKALINE PHOSPHATASE 175 IU/L (42-121); ANION GAP 17 (8-16); ASPARTATE AMINO TRANSFERASE 48 IU/L (15-46); BILIRUBIN,INDIRECT 1.8 mg/dl (0-1.1); BILIRUBIN,TOTAL 2.4 mg/dl (0.2-1.3); BLOOD UREA NITROGEN 6 mg/dl (7-20); CALCIUM 8.6 mg/dl (8.4-10.2); CARBON DIOXIDE 23 mmol/L (21-31); GLUCOSE 91 mg/dl (70-220)
[2016-05-26 00:15] LABS: ETHANOL < 10.0 mg/dl
--- NOTE | 2016-05-26 00:15 | RADRPT ---
PROCEDURE: CT Abdomen and Pelvis without contrast. CLINICAL INDICATION: Abdominal pain TECHNIQUE: CT scan of the abdomen and pelvis without contrast was performed on a multidetector hig h-resolution CT scanner. The patient was scanned without intravenous contrast. No oral contrast was administered. Coronal and sagittal reformatted images were obtained from the axial source images. Im ages were reviewed on a high-resolution PACS workstation. The total exam CTDI equals 21.1 mGy and t he total exam DLP equals 1339.51 mGy-cm. One or more of the following dose reduction techniques were used: - Automated exposure control. - Adjustment of the mA and/or kV according to patient size. - Use of iterative reconstruction technique. COMPARISON: Limited abdominal ultrasound of 05/02/2016, MRI of the abdomen of 04/03/[address] ab domen and pelvis without contrast of 04/02/2016 FINDINGS: Lungs: Linear atelectasis/fibrosis is seen at the lung bases. Small pericardial effusion again seen. Liver: No abnormality seen. Previously seen hepatic steatosis is not apparent presently. Gallbladder: Cholecystectomy. Spleen: Splenomegaly with vertical length of the spleen 15 cm not significantly changed compared to 04/02/2016. Stomach: The stomach is not distended. Pancreas: No abnormality seen. Adrenals: No abnormality seen. Kidneys: No abnormality seen. Abdominal aorta: No aneurysm seen. Lymph nodes: No enlarged lymph nodes are seen. There is nonspecific approximate 9 mm short axis per iportal lymph node again seen and an approximate 8 mm short axis portacaval lymph node again seen. Small bowel: No dilated small bowel loops are seen. Colon: Diverticula in sigmoid, ascending colon. Appendix: Not seen. Bladder: No abnormality seen Pelvic organs: There is a 3.6 x 3.5 x 3.4 cm right ovarian cyst which appears to be minimally large r than on the 04/02/2016 study. Ascites: Small amount of ascites around liver edge appearing since 04/02/2016 study. Small amount of free fluid in cul-de-sac. Osseous structures: Small likely bone island in the right femoral head again seen. Mild degenerati ve changes at sacroiliac joints. Subcutaneous edema increased compared to previous study. Very small umbilical hernia containing fat again seen. IMPRESSION: Splenomegaly again seen. 3.6 cm right ovarian cyst minimally larger than on 04/02/2016 study. Pelv ic ultrasound is recommended. Small amount of ascites around liver edge appearing since 04/02/2016. Small amount of free fluid in cul-de-sac region again seen. Subcutaneous edema increased compared to previous study. Please see above. RPTAT: HJES .Hernan Johnson MD, MD Date Time Electronically viewed and signed by .Hernan Johnson MD, MD on 05/26/2016 00:15 .S/
[2016-05-26 00:20] LABS: OPIATES Positive (NEGATIVE)
[2016-05-26 00:22] LABS: BARBITURATES Negative (NEGATIVE); BENZODIAZEPINES Negative (NEGATIVE); CANNABINOIDS Negative (NEGATIVE); COCAINE Negative (NEGATIVE)
[2016-05-26 00:31] LABS: INR 2.18; PROTIME 24.5 Sec (12.2-14.2); PT RATIO 1.9
[2016-05-26] MEDS ORDERED: POTASSIUM CHLORIDE (SR) 20 MEQ TAB PO ONE (01:29)
[2016-05-26] MEDS ORDERED: ONDANSETRON 4 MG INJ IV ONE (02:02)
--- NOTE | 2016-05-26 02:46 | RADRPT ---
PROCEDURE: US Non-OB Pelvis. CLINICAL INDICATION: Pain. TECHNIQUE: Multiple sonographic images of the pelvis were obtained utilizing a transabdominal tech nique. The images were reviewed on a PACS workstation. COMPARISON: None. FINDINGS: The uterus is visualized and measures 8.3 x 3.3 x 5.0 cm. The endometrial echo complex is normal and measures . The right ovary measures 5.3 x 3.5 x 4.5 cm. There is a 3.7 cm simple right ovarian cyst. The left ovary measures 4.0 x 2.2 x 2.9 cm. Blood flow is demonstrated to both ovaries. No adnexal masses are noted. There is a small volume of free fluid in the pelvic cul-de-sac. IMPRESSION: 1. Unremarkable appearance of the uterus and left ovary. 2. Simple right ovarian cyst measuring 3.7 cm. 3. Small volume of free pelvic fluid, probably physiologic. RPTAT: HTAR .Wenceslao Ponce MD, Date Time Electronically viewed and signed by .Wenceslao Ponce MD, on 05/26/2016 02:46 .R/
[2016-05-26] MEDS: KETOROLAC 30 MG INJ IV STA (02:47)
[2016-05-26] MEDS ORDERED: IBUP-1542 PO (04:14)
[2016-05-26 04:36] VITALS: BP 100/51; PULSE 78; RESP 16; TEMP 97.6
== END 2016-05-26 04:37 | disposition home or self-care (01) ==
LOC: E/R 17:13
DX: R10.84 Generalized abdominal pain (principal); N83.201 Unspecified ovarian cyst, right side; E87.6 Hypokalemia; R18.8 Other ascites; D68.9 Coagulation defect, unspecified; D64.9 Anemia, unspecified; R11.10 Vomiting, unspecified
CPT/HCPCS: 71010; 74176; 76856; 80053; 80306; 80307; 81003; 83690; 85025; 85610; 85730; 87400; 96374; 96375; J1885; J2405; J7030; Z7502; Z7610

== ENCOUNTER 2016-05-29 04:05 | Emergency (ER) | payer MEDICAID ==
[~2016-05-29] VITALS: Ht 162.6 cm; Wt 92.0 kg
[~2016-05-29 04:05] MED LIST changes: +IBUP-1542 PO
[2016-05-29 04:08] VITALS: Ht 162.6 cm; Wt 92.0 kg
[2016-05-29] MEDS ORDERED: morphine 4 MG/ML VIAL IV STA (07:14)
[2016-05-29] MEDS ORDERED: ONDANSETRON 4 MG INJ IV STA (07:14)
[2016-05-29 07:49] LABS: ADD UMIC YES; URINE BILIRUBIN (Dip) 3+ (NEGATIVE); URINE BLOOD (Dip) TRACE (NEGATIVE); URINE COLOR AMBER (YELLOW); URINE KETONES (Dip) 15 (NEGATIVE); URINE LEUKOCYTE ESTERASE (Dip) 1+ (NEGATIVE); URINE NITRITE (Dip) POSITIVE (NEGATIVE); URINE TOTAL PROTEIN (Dip) 2+ (NEGATIVE); URINE UROBILINOGEN (Dip) 2.0 E.U./dL (0.1-1.0)
[2016-05-29 07:51] LABS: BASOPHILS % 0.1 % (0.0-2.0); EOSINOPHILS # 0.2 10^3/ul (0.0-0.5); EOSINOPHILS % 1.8 % (0.0-7.0); HEMATOCRIT 32.1 % (37.0-47.0); HEMOGLOBIN 10.9 g/dl (12.0-16.0); LYMPHOCYTES # 1.8 10^3/ul (0.8-2.9); MEAN CORPUSCULAR HEMOGLOBIN 32.2 pg (29.0-33.0); MEAN CORPUSCULAR HGB CONC 33.9 g/dl (32.0-37.0); MEAN CORPUSCULAR VOLUME 94.8 fl (82.0-101.0); MEAN PLATELET VOLUME 9.2 fl (7.4-10.4); MONOCYTE # 0.5 10^3/ul (0.3-0.9); MONOCYTES % 4.9 % (0.0-11.0); NEUTROPHIL # 7.6 10^3/ul (1.6-7.5); NEUTROPHILS % 75.2 % (39.0-77.0); PLATELET COUNT 163 10^3/UL (140-440); RED BLOOD COUNT 3.39 10^6/ul (4.20-5.40); RED CELL DISTRIBUTION WIDTH 22.3 % (11.5-14.5); UNCORRECTED WBC 10.1 10^3/ul (4.8-10.8); WHITE BLOOD COUNT 10.1 10^3/ul (4.8-10.8)
[2016-05-29 07:53] LABS: CONDITION 1; LH ANALYZER COMMENTS 1
[2016-05-29 08:02] LABS: ALBUMIN 2.9 g/dl (3.3-4.9); POTASSIUM 4.5 mmol/L (3.5-5.1)
[2016-05-29 08:05] LABS: ALBUMIN/GLOBULIN RATIO 0.64; BILIRUBIN,DIRECT 0.3 mg/dl (0.00-0.20); BILIRUBIN,TOTAL 2.3 mg/dl (0.2-1.3); CREATININE 1.24 mg/dl (0.44-1.00); TOTAL PROTEIN 7.4 g/dl (6.1-8.1)
[2016-05-29 08:06] LABS: CALCIUM 8.9 mg/dl (8.4-10.2)
[2016-05-29 08:07] LABS: INR 1.86; PROTIME 21.6 Sec (12.2-14.2); PT RATIO 1.7
[2016-05-29 08:16] LABS: BACTERIA,URINE FEW; ICTOTEST NEGATIVE (NEGATIVE); URINE RBCS 0-2 /HPF (0)
[2016-05-29] MEDS ORDERED: OXYC-209 PO (08:29)
[2016-05-29] MEDS ORDERED: CEPH-443 PO (08:29)
--- NOTE | 2016-05-29 08:34 | ERD ---
ER Documentation Chief Complaint Date/Time DATE: 05/29/16 TIME: 08:31 Chief Complaint right sided abd pain, distended abdomen, hx- cirrhosis of liver HPI 30-year-old female presents to the emergency department complaining of abdominal pain. Patient has a chronic history of cirrhosis versus chronic pancreatitis. She has had multiple evaluations both inpatient and outpatient and apparently has now been placed on a liver transplant list. She has a history of chronic abdominal pain associated with this. She returns to the emergency department complaining of a recurrence, right-sided, non-provoked abdominal pain. She describes the pain is moderate to severe. She states that without her pain medication the pain is "unbearable." He reports no fevers chills or vomiting. She reports no melena or hematochezia. ROS All systems reviewed and are negative except as per history of present illness. Medications Home Meds Active Scripts Cephalexin* (Keflex*) 500 Mg Capsule, 500 MG PO Q6, #28 CAP Prov:EVELYN CORONEL 05/29/16 Oxycodone HCl/Acetaminophen (Percocet 10-325 mg Tablet) 1 Each Tablet, 1 EACH PO BID Y for PAIN, #20 TAB Prov:EVELYN CORONEL 05/29/16 Ibuprofen* (Motrin*) 600 Mg Tab, 600 MG PO Q6H Y for PAIN AND OR ELEVATED TEMP, #30 TAB Prov:CORAZON ARRIOLA MD 05/26/16 Oxycodone Hcl* (IR) (Oxycodone Hcl*) 5 Mg Capsule, 10 MG PO Q6 Y for PAIN, #24 CAP Prov:ESTHER SAAB DO 05/12/16 Ondansetron (Zofran Odt) 4 Mg Tab.rapdis, 4 MG PO Q6, #10 Prov:ESTHER SAAB DO 05/12/16 Spironolactone* (Spironolactone*) 100 Mg Tablet, 100 MG PO DAILY for 30 Days, # 30 TAB 3 Refills Prov:JASSON CARVER S. 05/10/16 Furosemide* (Lasix*) 40 Mg Tablet, 40 MG PO DAILY for 30 Days, #30 TAB 3 Refills Prov:JASSON CARVER S. 05/10/16 Folic Acid* (Folic Acid*) 1 Mg Tablet, 1 MG PO DAILY for 30 Days, #30 TAB 3 Refills Prov:JASSON CARVER S. 05/10/16 Multivitamins* (Theragran*) 1 Tab Tab, 1 TAB PO DAILY for 30 Days, #30 TAB 3 Refills Prov:JASSON CARVER S. 05/10/16 Lactulose* (Cephulac*) 20 Gm/30 Ml Soln, 20 GM PO Q6, #120 3 Refills Prov:LUISA CARVERP S. 05/10/16 Pantoprazole* (Protonix*) 40 Mg Tablet.dr, 40 MG PO BID, #60 TAB 2 Refills Prov:LUISA CARVERP S. 05/10/16 Oxycodone Hcl* (IR) (Oxycodone Hcl*) 5 Mg Capsule, 5 MG PO Q4H Y for PAIN, #20 CAP Prov:ESTHER SAAB 04/14/16 Hydrocodone/Acetaminophen ([place] 5-325 Tablet) 1 Each Tablet, 1 EACH PO Q6H, # 30 TAB Prov:BOBBI PALOMINO 04/12/16 Allergies Allergies: Coded Allergies: No Known Allergy (Unverified , 05/25/16) PMhx/Soc Anesthesia Reaction: No Hx Neurological Disorder: No Hx Respiratory Disorders: No Hx Cardiac Disorders: Yes (hypotensive) Hx Psychiatric Problems: No Hx Miscellaneous Medical Probl: Yes (ETOH abuse, ESLD on [facility] transplant list) Hx Alcohol Use: Yes (last drink 3.5 months ago) Hx Substance Use: No Hx Tobacco Use: No FmHx Noncontributory for chief complaint Physical Exam Vitals Vital Signs Date Time Temp Pulse Resp B/P Pulse Ox O2 Delivery O2 Flow Rate FiO2 05/29/16 04:08 99.3 87 20 112/54 99 Physical Exam GENERAL: Patient is an obese female who is slightly icteric HEENT: Pupils equal, round, and reactive to light. EOMI. There is scleral icterus noted NECK: C-spine is soft and supple, there is no meningismus. There is no cervical lymphadenopathy. LUNGS: Clear to auscultation bilaterally. There are no rales, wheezes or rhonchi. HEART: Regular rate and rhythm, no murmurs, clicks, rubs or gallops. ABDOMEN: Soft and mildly distended with stigmata of cirrhosis. No rebound guarding or peritoneal signs EXTREMITIES: There is no peripheral cyanosis or edema. No focal swelling or erythema. NEURO: The patient moves all four extremities with 5/5 strength. Cranial nerves II - XII are intact. Normal gait. Alert and oriented SKIN: There is no apparent rash or petechiae. HEME/LYMPHATIC: There is no evidence of excessive bruising or lymphedema. PSYCHIATRIC: The patient does not appear anxious or depressed. Result Diagram: 05/29/16 0740 05/29/16 0725 Results 24 hrs Laboratory Tests Test 05/29/16 07:25 05/29/16 07:40 Alanine Aminotransferase (ALT/SGPT) 29IU/L Albumin 2.9g/dl Albumin/Globulin Ratio 0.64 Alkaline Phosphatase 185IU/L Anion Gap 18 Aspartate Amino Transf (AST/SGOT) 56IU/L Blood Urea Nitrogen 9mg/dl Calcium Level 8.9mg/dl Carbon Dioxide Level 21mmol/L Chloride Level 107mmol/L Creatinine 1.24mg/dl Direct Bilirubin 0.30mg/dl Globulin 4.50g/dl Glucose Level 103mg/dl Indirect Bilirubin 2.0mg/dl Lipase 331U/L Potassium Level 4.5mmol/L Sodium Level 141mmol/L Total Bilirubin 2.3mg/dl Total Protein 7.4g/dl Urine Bacteria FEW Urine Bilirubin 3+ Urine Clarity CLEAR Urine Color NEVA Urine Epithelial Cells MODERATE Urine Glucose 0.1%% Urine Hemoglobin TRACE Urine Ictotest NEGATIVE Urine Ketones 15 Urine Leukocyte Esterase 1+ Urine Microscopic RBC 0-2/HPF Urine Microscopic WBC 10-25/HPF Urine Nitrite POSITIVE Urine Specific [place] 1.025 Urine Total Protein 2+ Urine Urobilinogen 2.0 E.U./dL Urine pH 5.5 Basophils # 0.010^3/ul Basophils % 0.1% Blood Morphology Comment Eosinophils # 0.210^3/ul Eosinophils % 1.8% Hematocrit 32.1% Hemoglobin 10.9g/dl INR International Normalized Ratio 1.86 Lymphocytes # 1.810^3/ul Lymphocytes % 18.0% Mean Corpuscular Hemoglobin 32.2pg Mean Corpuscular Hemoglobin Concent 33.9g/dl Mean Corpuscular Volume 94.8fl Mean Platelet Volume 9.2fl Monocytes # 0.510^3/ul Monocytes % 4.9% Neutrophils # 7.610^3/ul Neutrophils % 75.2% Nucleated Red Blood Cells # 0.010^3/ul Nucleated Red Blood Cells % 0.0/100WBC Platelet Count 58338^3/UL Prothrombin Time 21.6Sec Prothrombin Time Ratio 1.7 Red Blood Count 3.3910^6/ul Red Cell Distribution Width 22.3% White Blood Count 10.110^3/ul Current Medications Medications (Trade) Dose Ordered Sig/Latoya Route PRN Reason Start Time Stop Time Status Last Admin Dose Admin Morphine Sulfate (morphine) 4 mg ONCE STAT IV 05/29/16 07:14 2 07:15 DC 05/29/16 08:17 Ondansetron HCl (Zofran Inj) 4 mg ONCE STAT IV 05/29/16 07:14 05/29/16 07:15 DC 05/29/16 08:17 Procedures/MDM Patient was taken to a room, seen and evaluated. Comfort measures were initiated. Diagnostic tests were ordered and reviewed. REEVALUATION: Patient is remained stable here in the emergency department MEDICAL DECISION MAKIN-year-old female with a history of chronic pain related to cirrhosis presents the emergency department with what appears to be her chronic pain. At this time patient shows no evidence of acute infection. Patient shows no evidence of significant dehydration vomiting or other high- risk concerns. Her repeat lab tests today basically shows stable liver function with no significant elevation in her bilirubin. At this time, patient will be treated with her chronic pain management and is referred back to community physicians for further evaluation of her chronic cirrhosis with possibility of liver transplant pending. Departure Diagnosis: Primary Impression: Abdominal pain Condition: Stable Patient Instructions: Abdominal Pain, Understanding Urinary Tract Infections ( UTIs), Cirrhosis EVELYN CORONEL May 29, 2016 08:33
== END 2016-05-29 08:57 | disposition home or self-care (01) ==
LOC: FTE 04:05
DX: R10.9 Unspecified abdominal pain (principal)
CPT/HCPCS: 36415; 80053; 81001; 83690; 84703; 85025; 85610; 96374; 96375; J2270; J2405; Z7502; 81003